=== PATIENT | female | born 1935 ===

== ENCOUNTER 2017-12-02 02:06 | Inpatient (IN) | payer MEDICARE ==
[2017-12-02] MEDS ORDERED: Aluminum Hydroxide/Magnesium Hydroxide Susp (30 mL) PO STA (02:47)
--- NOTE | 2017-12-02 02:49 | C.PDOC ---
Chief Complaint (Nursing): Abdominal Pain Past Medical History Vital Signs: Last Vital Signs Temp 98.4 F 12/02/17 02:24 Pulse 64 12/02/17 02:24 Resp 20 12/02/17 02:24 BP 145/69 12/02/17 02:24 Pulse Ox 98 12/02/17 02:24 - Social History Hx Alcohol Use: No Hx Substance Use: No - Immunization History Hx Tetanus Toxoid Vaccination: No Hx Influenza Vaccination: No Hx Pneumococcal Vaccination: No ED Course And Treatment O2 Sat by Pulse Oximetry: 98 Disposition - Disposition
--- NOTE | 2017-12-02 02:52 | C.PDOC ---
History Of Present Illness Patient is an 82 y/o female who presents to the ED with a roommate complaining of intermittent upper abdominal pain for the last 2 weeks. Per roommate, the patient arrived from the [facility] last Saturday with symptoms; admits to being seen by a doctor yesterday and took Reglan with no relief. Admits to vomiting 3 times since arriving from [facility]; denies diarrhea. Patient notes pain worsens when lying flat and mostly occurs at night; pain questionably related to meals. Last meal was rice at 6pm. No other physical complaints at this time. Chief Complaint (Nursing): Abdominal Pain History Per: Patient, Other (roommate) History/Exam Limitations: no limitations Onset/Duration Of Symptoms: Days (2 weeks), Intermittent Episodes Current Symptoms Are (Timing): Still Present Context: Travel (arrived from [facility] Saturday), Food (questionable relation) Location Of Pain/Discomfort: Epigastric, Periumbilical Associated Symptoms: Vomiting (x3 episodes). denies: Diarrhea Exacerbating Factors: Supine Recent travel outside of the [place] States: No Past Medical History Reviewed: Historical Data, Nursing Documentation, Vital Signs Vital Signs: Last Vital Signs Temp 98.4 F 12/02/17 02:24 Pulse 64 12/02/17 02:24 Resp 20 12/02/17 02:24 BP 145/69 12/02/17 02:24 Pulse Ox 98 12/02/17 04:39 - Medical History PMH: No Chronic Diseases Surgical History: No Surg Hx Family History: States: No Known Family Hx - Social History Hx Alcohol Use: No Hx Substance Use: No - Immunization History Hx Tetanus Toxoid Vaccination: No Hx Influenza Vaccination: No Hx Pneumococcal Vaccination: No Review Of Systems Gastrointestinal: Positive for: Vomiting, Abdominal Pain. Negative for: Diarrhea Physical Exam - Physical Exam Appears: Well, Non-toxic, In Acute Distress Skin: Normal Color, Warm, Dry Head: Atraumatic, Normacephalic Oral Mucosa: Moist Chest: Symmetrical Cardiovascular: Rhythm Regular, No Murmur Respiratory: Normal Breath Sounds, No Rales, No Rhonchi, No Wheezing Gastrointestinal/Abdominal: Bowel Sounds (positive, active), Soft, Guarding ( voluntary guarding), Other (pain confined to epigastrium ) Neurological/Psych: Oriented x3, Normal Speech, Normal Cognition, Other (no focal deficits) ED Course And Treatment - Laboratory Results Result Diagrams: 12/02/17 02:55 12/02/17 02:55 O2 Sat by Pulse Oximetry: 98 Medical Decision Making Medical Decision Making: clinical impression: GERD vs peptic ulcer vs gastritis Plan: * EKG * blood work * UA * Protonix, zofran, maalox, morphine On re-eval, patient is resting comfortably and feels well enough to go home. Patient prescribed antacids. Disposition - Disposition Referrals: [facility] at [facility] [Outside] Disposition: HOME/ ROUTINE Disposition Time: 05:10 Condition: GOOD Prescriptions: Pantoprazole Sodium [Protonix] 40 mg PO DAILY #14 tab Instructions: Epigastric Pain (ED) Forms: [employer] (Kinyarwanda) Print Language: ARMENIAN - Clinical Impression Clinical Impression: Epigastric abdominal pain - Scribe Statement The provider has reviewed the documentation as recorded by the Scribe Khloe Rivera All medical record entries made by the Scribe were at my direction and personally dictated by me. I have reviewed the chart and agree that the record accurately reflects my personal performance of the history, physical exam, medical decision making, and the department course for this patient. I have also personally directed, reviewed, and agree with the discharge instructions and disposition.
[2017-12-02] MEDS ORDERED: Aluminum Hydroxide/Magnesium Hydroxide Susp (30 mL) ONE (02:57)
[2017-12-02] MEDS ORDERED: Morphine 4 MG/ML VIAL ONE (02:57)
[2017-12-02 02:58] LABS: BASO % 0.3 % (0.0-2.0); EOS % 0.2 % (0.0-4.0); HEMOGLOBIN 12.7 g/dL (11.0-16.0); LYMPH # 2.6 K/uL (1.0-4.3); LYMPH % 23.3 % (20.0-40.0); MEAN CELL VOLUME 84.3 fL (81.0-99.0); MEAN CORPUSCULAR HEMOGLOBIN 28.5 pg (27.0-31.0); MEAN CORPUSCULAR HGB CONC 33.8 g/dL (33.0-37.0); MEAN PLATELET VOLUME 8.8 fL (7.2-11.7); MONO # 0.5 K/uL (0.0-0.8); MONO % 4.8 % (0.0-10.0); NEUT # 7.8 K/uL (1.8-7.0); NEUT % 71.4 % (50.0-75.0); RBC 4.44 Mil/uL (3.80-5.20); RED CELL DISTRIBUTION WIDTH 13.6 % (11.5-14.5); WHITE BLOOD COUNT 10.9 K/uL (4.8-10.8)
[2017-12-02 03:09] LABS: ALBUMIN 3.7 g/dL (3.5-5.0); ALT/SGPT 18 U/L (9-52); AST/SGOT 18 U/L (14-36); BLOOD UREA NITROGEN 19 mg/dL (7-17); CALCIUM 7.9 mg/dl (8.6-10.4); GFR AFRICAN-AMERICAN > 60; GFR NON-AFRICAN AMERICAN > 60; LIPASE 301 U/L (23-300)
[2017-12-02] MEDS ORDERED: Potassium Chloride 20 mEq ER Tab PO STA (03:14)
[2017-12-02] MEDS ORDERED: Potassium Chloride 20 mEq ER Tab PO ONE (03:27)
[2017-12-02] MEDS ORDERED: HYDROmorphone 1 mg/ml ISec IVP STA ×2 (03:49→04:11)
[2017-12-02] MEDS ORDERED: Iodixanol 320 MG/ML 100 ML BOTTLE IV ONE (05:47)
--- NOTE | 2017-12-02 06:32 | CT ---
EXAM: CT Abdomen and Pelvis With Intravenous Contrast CLINICAL HISTORY: 82 years old, female; Pain; Abdominal pain; Epigastric TECHNIQUE: Axial computed tomography images of the abdomen and pelvis with intravenous contrast. All CT scans at this facility use one or more dose reduction techniques, viz.: automated exposure control; ma/kV adjustment per patient size (including targeted exams where dose is matched to indication; i.e. head); or iterative reconstruction technique. 512 images are submitted. Coronal and sagittal reformatted images were created and reviewed. CONTRAST: 100 mL of [id number] administered intravenously. COMPARISON: No relevant prior studies available. FINDINGS: Lower thorax: Cardiomegaly. ABDOMEN: Liver: Fatty liver. Gallbladder and bile ducts: Partially distended gallbladder with gallbladder wall prominence and pericholecystic fluid. Pancreas: Unremarkable. No mass. No ductal dilation. Spleen: Unremarkable. No splenomegaly. Adrenals: Unremarkable. No mass. Kidneys and ureters: There are renal hypodensities too small to characterize. No hydronephrosis. Stomach and bowel: There is diffuse thickening of mid to distal stomach with gastric ulceration seen on image 59 series 3 and perforated gastric ulceration seen on image 52 series 3 representing perforated gastric ulcer disease. Large amount of stool in the colon. Nonspecific colonic wall thickening. Correlation with patient's clinical history of constipation versus stool related colitis is recommended. Diverticulosis. Appendix: Appendix is top normal in thickness. PELVIS: Bladder: Partially distended bladder with bladder wall thickening. Correlation with urinalysis is recommended only if clinical cystitis is suspected. Reproductive: Hysterectomy. ABDOMEN and PELVIS: Intraperitoneal space: Extensive free intraperitoneal air in the upper abdomen. Right upper quadrant and intra-abdominal pelvic fluid likely related to gastric perforation. Bones/joints: No acute fracture. No dislocation. Soft tissues: Unremarkable. Vasculature: Unremarkable. No abdominal aortic aneurysm. Lymph nodes: Unremarkable. No enlarged lymph nodes. IMPRESSION: 1. Extensive free intraperitoneal air in the upper abdomen. Right upper quadrant and intra-abdominal pelvic fluid likely related to gastric perforation. 2. There is diffuse thickening of mid to distal stomach with gastric ulceration seen on image 59 series 3 and perforated gastric ulceration seen on image 52 series 3 representing perforated gastric ulcer disease.
[2017-12-02] MEDS ORDERED: Sodium Chloride 0.9% 1,000 ML IV ONE ×3 (07:19→15:46)
--- NOTE | 2017-12-02 07:21 | CP.PCM.CON ---
<Soto Puentes - Last Filed: 12/02/17 08:04> History of Present Illness - History of Present Illness History of Present Illness: General Surgery Consult Note for Dr. Haque Reason for consult: abdominal pain, CT findings of perforated gastric ulcer and free air 82 F with PMH of HTN presents to [facility] complaint of abdominal pain. Patient states that her pain has been present for about 2 weeks. She was in the [facility] when the began started. Patient states that she has similar pain in the past but was much more mild. She states that pain was a gradual onset and has gotten progressively worse. She denies history of GERD or gastritis. She states that she was taking Aspirin daily but stopped 2 weeks ago when the pain began. She reports several bout of nauea/vomiting over last two weeks. She denies hematemesis. She rates the pain as moderate to severe. She describes he pain as constant, dull, and aching. Eating and drinking exacerbates her pain while nothing alleviates it. Denies fever/chills, chest pain, SOB, diarrhea, constipation, incontinence, urinary symptoms. PMH: HTN Meds: As per EMR Allergy: NKDA PSH: hysterectomy FH: unknown Social: denies tobacco/EtOH/illicit drug use Review of Systems - Review of Systems All systems: reviewed and no additional remarkable complaints except (as per HPI ) Past Patient History - Past Social History Smoking Status: Never Smoked - GASTROINTESTINAL Other/Comment: ABDOMINAL PAIN - PSYCHIATRIC Hx Substance Use: No - SURGICAL HISTORY Other/Comment: MYomectomy - ANESTHESIA Hx Anesthesia: Yes Hx Anesthesia Reactions: No Meds Home Medications: Home Medication List Medication Instructions Recorded Confirmed Type Pantoprazole Sodium [Protonix] 40 mg PO DAILY #14 tab 12/02/17 Rx Allergies/Adverse Reactions: Allergies Allergy/AdvReac Type Severity Reaction Status Date / Time No Known Allergies Allergy Unverified 12/02/17 02:28 - Medications Medications: Current Medications Sodium Chloride (Sodium Chloride 0.9%) 1,000 mls @ 125 mls/hr IV .Q8H ADELSO Sodium Chloride (Sodium Chloride 0.9%) 1,000 mls @ 1,000 mls/hr IV .Q1H ONE Stop: 12/02/17 08:18 Physical Exam - Constitutional Appears: No Acute Distress, Younger Than Stated Age - Head Exam Head Exam: ATRAUMATIC, NORMOCEPHALIC - Eye Exam Eye Exam: EOMI, Normal appearance Pupil Exam: PERRL - ENT Exam ENT Exam: Mucous Membranes Moist - Neck Exam Neck exam: Positive for: Full Rom - Respiratory Exam Respiratory Exam: NORMAL BREATHING PATTERN - Cardiovascular Exam Cardiovascular Exam: REGULAR RHYTHM - GI/Abdominal Exam GI & Abdominal Exam: Distended (mild), Firm, Guarding (voluntary), Normal Bowel Sounds, Soft, Tenderness (Epigastric/RLQ). absent: Rebound, Rigid Additional comments: midline scar from previous hysterectomy - Extremities Exam Extremities exam: Positive for: normal capillary refill, pedal pulses present. Negative for: calf tenderness - Back Exam Back exam: absent: CVA tenderness (L), CVA tenderness (R) - Neurological Exam Neurological exam: Alert, CN II-XII Intact, Normal Gait, Oriented x3 - Psychiatric Exam Psychiatric exam: Normal Affect, Normal Mood - Skin Skin Exam: Dry, Intact, Normal Color, Warm Results - Vital Signs Recent Vital Signs: Last Vital Signs Temp 98.4 F 12/02/17 02:24 Pulse 66 12/02/17 06:15 Resp 22 12/02/17 06:15 BP 141/66 12/02/17 06:15 Pulse Ox 98 12/02/17 06:15 - Labs Result Diagrams: 12/02/17 02:55 12/02/17 02:55 Labs: Laboratory Results - last 24 hr 12/02/17 12/02/17 02:55 02:55 WBC 10.9 H RBC 4.44 Hgb 12.7 Hct 37.4 MCV 84.3 MCH 28.5 MCHC 33.8 RDW 13.6 Plt Count 367 MPV 8.8 Neut % (Auto) 71.4 Lymph % (Auto) 23.3 [place] % (Auto) 4.8 Eos % (Auto) 0.2 Baso % (Auto) 0.3 Neut # 7.8 H Lymph # 2.6 [place] # 0.5 Eos # 0.0 Baso # 0.0 Sodium 133 Potassium 2.9 L Chloride 98 Carbon Dioxide 25 Anion Gap 13 BUN 19 H Creatinine 0.8 Est GFR ( Amer) > 60 Est GFR (Non-Af Amer) > 60 Random Glucose 180 H Calcium 7.9 L Total Bilirubin 1.1 AST 18 ALT 18 Alkaline Phosphatase 66 Troponin I < 0.0120 Total Protein 7.2 Albumin 3.7 Globulin 3.5 Albumin/Globulin Ratio 1.0 Lipase 301 H Assessment & Plan - Assessment and Plan (Free Text) Plan: 82 F presents with abdominal pain, CT abdomen/pelvis shows perforated gastric ulcer and free air -NPO -IV fluids -IV antibiotics -Analgesics/Anti-emetics PRN -Scheduled today for exploratory laparotomy in [place] -Protonix Q12H -DVT ppx -Discussed with Dr. Garland Puentes PGY1 <Roman Haque - Last Filed: 12/07/17 21:53> Meds - Medications Medications: Current Medications Acetaminophen (Tylenol 325mg Tab) 650 mg PO Q4 PRN PRN Reason: fever/pain Docusate Sodium (Colace) 100 mg PO DAILY [facility] Last Admin: 12/07/17 14:15 Dose: 100 mg Enoxaparin Sodium (Lovenox) 30 mg SC DAILY [facility] Last Admin: 12/07/17 09:01 Dose: 30 mg BUPIVACAINE 0.125%/0.9% NACL (Bupivacaine-Ns 0.125% On-Q Java [employer]) 600 mls @ 4 mls/ hr IJ ONCE ONE Stop: 12/08/17 20:35 Last Admin: 12/02/17 17:25 Dose: 4 mls Fluconazole (Diflucan Iv 100 Mg/50 Ml Ns) 50 mls @ 100 mls/hr IVPB Q24H [facility] Last Admin: 12/07/17 18:45 Dose: 100 mls/hr Piperacillin Sod/Tazobactam Sod (Zosyn 2.25 Gm Iv Premix) 2.25 gm in 50 mls @ 100 mls/hr IVPB Q8H [facility] Last Admin: 12/07/17 20:43 Dose: 100 mls/hr Potassium Chloride 10 meq/ (Dextrose/Sodium Chloride) 1,005 mls @ 75 mls/hr IV .[id number] [facility] Last Admin: 12/07/17 06:39 Dose: 75 mls/hr Metronidazole 250 mg/ (Miscellaneous) 50 mls @ 100 mls/hr IVPB Q8 [facility] Losartan Potassium (Cozaar) 100 mg PO DAILY [facility] Last Admin: 12/07/17 09:01 Dose: 100 mg Metoprolol Succinate (Toprol Xl) 12.5 mg PO DAILY [facility] Last Admin: 12/07/17 14:15 Dose: 12.5 mg Ondansetron HCl (Zofran Inj) 4 mg IVP Q4 PRN PRN Reason: Nausea/Vomiting Last Admin: 12/07/17 04:14 Dose: 4 mg Oxycodone/Acetaminophen (Percocet 5/325 Mg Tab) 2 tab PO Q4H PRN PRN Reason: Pain, severe (8-10) Stop: 12/10/17 13:41 Pantoprazole Sodium (Protonix Ec Tab) 40 mg PO DAILY [facility] Potassium Chloride (Potassium Chloride Oral Soln) 20 meq PO DAILY [facility] Last Admin: 12/07/17 10:08 Dose: 20 meq Results - Vital Signs Recent Vital Signs: Last Vital Signs Temp 98.5 F 12/07/17 15:15 Pulse 68 12/07/17 15:15 Resp 20 12/07/17 15:15 BP 169/77 H 12/07/17 15:15 Pulse Ox 96 12/07/17 15:15 - Labs Result Diagrams: 12/07/17 07:23 12/07/17 07:23 Labs: Laboratory Results - last 24 hr 12/07/17 12/07/17 07:23 07:23 WBC 11.2 H RBC 3.36 L Hgb 9.7 L Hct 28.7 L MCV 85.4 D MCH 28.9 MCHC 33.8 RDW 14.8 H Plt Count 290 MPV 9.0 Neut % (Auto) 73.5 Lymph % (Auto) 14.2 L [place] % (Auto) 9.7 Eos % (Auto) 2.5 Baso % (Auto) 0.1 Neut # 8.2 H Lymph # 1.6 [place] # 1.1 H Eos # 0.3 Baso # 0.0 Sodium 139 Potassium 2.8 L Chloride 109 H Carbon Dioxide 24 Anion Gap 8 L BUN 9 Creatinine 0.8 Est GFR ( Amer) > 60 Est GFR (Non-Af Amer) > 60 Random Glucose 97 Calcium 7.0 L Total Bilirubin 0.5 AST 28 ALT 35 Alkaline Phosphatase 45 Total Protein 5.1 L Albumin 2.3 L Globulin 2.8 Albumin/Globulin Ratio 0.8 L Attending/Attestation - Attestation I have personally seen and examined this patient.: Yes I have fully participated in the care of the patient.: Yes I have reviewed all pertinent clinical information: Yes Notes (Text): Pt was seen and examined at bedside Agree with above note and assessment Pt with upper abdominal pain and tenderness CT scan suggestive of Free air Labs reviewed Vitals WNL OR for Exp Lap and Joselito patch repair Consent NPO, IVF IV antibiotics Plan d.w pt in detail Risk and benefit explained in detail.
[2017-12-02] MEDS ORDERED: Sodium Chloride 0.9% 1,000 ML ONE (07:27)
[2017-12-02] MEDS ORDERED: Sodium Chloride 0.9% 1,000 ML IV SCH (07:30)
[2017-12-02] MEDS ORDERED: cefOXitin IV 1 gm in Dextrose 1 GM/50 ML BAG IVPB SCH (07:45)
[2017-12-02] MEDS ORDERED: HYDROmorphone 1 mg/ml ISec IVP PRN (07:47)
[2017-12-02 07:50] LABS: INR 1.2; PROTHROMBIN TIME 13.1 SECONDS (9.7-12.2)
[2017-12-02] MEDS ORDERED: metroNIDAZOLE IV 500 mg/100 ml 500 MG/100 ML BAG IVPB SCH (08:00)
--- NOTE | 2017-12-02 08:38 | RAD ---
HISTORY: pre-op COMPARISON: No prior. FINDINGS: LUNGS: Opacity at right base may reflect small pleural effusion. There may be right basilar atelectasis with downward bowing of the minor fissure. Follow-up advised. No definite infiltrate. Slight blunting of left costophrenic angle also present, again possible small pleural effusion. PLEURA: As above CARDIOVASCULAR: Normal. OSSEOUS STRUCTURES: No significant abnormalities. VISUALIZED UPPER ABDOMEN: Normal. OTHER FINDINGS: None. IMPRESSION: Possible small bilateral pleural effusion. No definite infiltrate. Possible right basilar atelectasis.
[2017-12-02] MEDS ORDERED: Lidocaine 1%/Epinephrine 1:100000 30 ml vial IJ STA (08:41)
--- NOTE | 2017-12-02 08:54 | CP.PCM.HP ---
History of Present Illness - History of Present Illness History of Present Illness: CC: Abd pain 82 y/o female with IFG. Pt w/ Epig pain x 1-2 mths ago and was on Pepcid. Pt pain start to increase 3 wks ago & has nausea/ vomiting. She was seen in 2 days ago & was advise work up. Yesterday night, she had kady increase of epigastric pain and felt very weak. She went to ER and CT is (+) for perforated gastric ulcer. Present on Admission - Present on Admission Any Indicators Present on Admission: Yes History of DVT/PE: No History of Uncontrolled Diabetes: No Urinary Catheter: No Decubitus Ulcer Present: No Review of Systems - Review of Systems Systems not reviewed;Unavailable: Acuity of Condition - Constitutional Constitutional: Fatigue, Night Sweats, Weakness. absent: Excessive Sweating, Fever, Weight Loss - EENT Eyes: absent: Change in Vision, Loss of Peripheral Vision, Sees Flashes, Loss of Vision Nose/Mouth/Throat: absent: Nasal Congestion, Bleeding Gums, Dysphagia, Mouth Pain, Neck Pain - Cardiovascular Cardiovascular: absent: Chest Pain, Diaphoresis, Edema, Leg Edema, Palpitations - Respiratory Respiratory: absent: Cough, Snoring, Pain on Inspiration, Chest Congestion, Excessive Mucous Production - Gastrointestinal Gastrointestinal: Nausea, Vomiting. absent: Abdominal Pain, Bloating, Cramping , Excessive Flatus, Loose Stools - Genitourinary Genitourinary: absent: Difficulty Urinating, Dysuria, Pyuria, Urinary Hesitance - Musculoskeletal Musculoskeletal: Abnormal Gait, Tingling. absent: Back Pain, Joint Swelling, Muscle Weakness, Myalgias, Stiffness - Integumentary Integumentary: absent: Alopecia, Changing Lesions, Skin Pain, Swelling Past Patient History - Infectious Disease Hx of Infectious Diseases: None - Past Social History Smoking Status: Never Smoked - GASTROINTESTINAL Other/Comment: ABDOMINAL PAIN - PSYCHIATRIC Hx Substance Use: No - SURGICAL HISTORY Other/Comment: MYomectomy - ANESTHESIA Hx Anesthesia: Yes Hx Anesthesia Reactions: No Meds Home Medications: Home Medication List Medication Instructions Recorded Confirmed Type Pantoprazole Sodium [Protonix] 40 mg PO DAILY #14 tab 12/02/17 Rx Allergies/Adverse Reactions: Allergies Allergy/AdvReac Type Severity Reaction Status Date / Time No Known Allergies Allergy Unverified 12/02/17 02:28 Physical Exam - Constitutional Appears: Well - Eye Exam Eye Exam: Normal appearance - ENT Exam ENT Exam: Mucous Membranes Dry. absent: Mucous Membranes Moist - Neck Exam Neck exam: Positive for: Full Rom. Negative for: Lymphadenopathy, Normal Inspection - Respiratory Exam Respiratory Exam: Rales, Rhonchi, Wheezes. absent: Decreased Breath Sounds - Cardiovascular Exam Cardiovascular Exam: REGULAR RHYTHM, +S1, +S2. absent: Gallop, JVD - GI/Abdominal Exam GI & Abdominal Exam: Soft. absent: Rigid, Tenderness - Extremities Exam Extremities exam: Positive for: calf tenderness, full ROM, normal capillary refill. Negative for: joint swelling, pedal edema Results - Vital Signs Recent Vital Signs: Last Vital Signs Temp 97.7 F 12/02/17 08:43 Pulse 68 12/02/17 08:43 Resp 20 12/02/17 08:43 BP 133/68 12/02/17 08:43 Pulse Ox 95 12/02/17 08:43 - Labs Result Diagrams: 12/02/17 02:55 12/02/17 02:55 Labs: Laboratory Results - last 24 hr 12/02/17 12/02/17 12/02/17 02:55 02:55 07:36 WBC 10.9 H RBC 4.44 Hgb 12.7 Hct 37.4 MCV 84.3 MCH 28.5 MCHC 33.8 RDW 13.6 Plt Count 367 MPV 8.8 Neut % (Auto) 71.4 Lymph % (Auto) 23.3 [place] % (Auto) 4.8 Eos % (Auto) 0.2 Baso % (Auto) 0.3 Neut # 7.8 H Lymph # 2.6 [place] # 0.5 Eos # 0.0 Baso # 0.0 PT 13.1 H INR 1.2 APTT 31 Sodium 133 Potassium 2.9 L Chloride 98 Carbon Dioxide 25 Anion Gap 13 BUN 19 H Creatinine 0.8 Est GFR ( Amer) > 60 Est GFR (Non-Af Amer) > 60 Random Glucose 180 H Calcium 7.9 L Total Bilirubin 1.1 AST 18 ALT 18 Alkaline Phosphatase 66 Troponin I < 0.0120 Total Protein 7.2 Albumin 3.7 Globulin 3.5 Albumin/Globulin Ratio 1.0 Lipase 301 H Blood Type Antibody Screen 12/02/17 07:36 WBC RBC Hgb Hct MCV MCH MCHC RDW Plt Count MPV Neut % (Auto) Lymph % (Auto) [place] % (Auto) Eos % (Auto) Baso % (Auto) Neut # Lymph # [place] # Eos # Baso # PT INR APTT Sodium Potassium Chloride Carbon Dioxide Anion Gap BUN Creatinine Est GFR ( Amer) Est GFR (Non-Af Amer) Random Glucose Calcium Total Bilirubin AST ALT Alkaline Phosphatase Troponin I Total Protein Albumin Globulin Albumin/Globulin Ratio Lipase Blood Type A POSITIVE Antibody Screen Negative - EKG Data EKG Interpreted by: Myself - EKG Data When Compared to Previous EKG: No Significant Change Assessment & Plan - Assessment and Plan (Free Text) Assessment: Perforated Gastric ulcer; Hypokalemia For surgery/ (+) k supplement IV Recheck labs in AM
[2017-12-02] MEDS: metroNIDAZOLE IV 500 mg/100 ml 500 MG/100 ML BAG IVPB SCH ×2 (09:25→16:59)
[2017-12-02] MEDS: cefOXitin IV 1 gm in Dextrose 1 GM/50 ML BAG IVPB SCH ×2 (10:51→18:23)
[2017-12-02] MEDS: Potassium Chloride 20 MEQ in Dextrose 5%/0.9% NS 1,000 ML IV SCH ×2 (12:16→20:08)
[2017-12-02] MEDS ORDERED: Lactated Ringer's 1,000 ML IV ONE (14:35)
[2017-12-02] MEDS ORDERED: Lidocaine 4% (Laryng-O-Jet) Kit MM ONE (14:35)
[2017-12-02] MEDS ORDERED: Succinylcholine Chloride 20 mg/ml Syr (5 ml) IV ONE (14:35)
[2017-12-02] MEDS ORDERED: BUPIVACAINE 0.125%/0.9% NACL 600 ML IJ ONE (14:36)
[2017-12-02] MEDS ORDERED: Etomidate 20 mg/10ml Inj IV ONE (14:38)
[2017-12-02] MEDS ORDERED: Rocuronium 10 mg/ml (5 ml) ONE (15:02)
[2017-12-02] MEDS ORDERED: Bupivacaine HCl 0.25% PF (10 ml) Inj ONE ×2 (16:07→16:08)
[2017-12-02] MEDS ORDERED: Propofol 10 mg/ml Inj (20 ML) ONE (16:26)
[2017-12-02] MEDS ORDERED: HYDROmorphone 0.5 mg/0.5 ml ISec IVP PRN (17:22)
--- NOTE | 2017-12-02 17:29 | PCM.SURG1 ---
Surgeon's Initial Post Op Note - Surgeon's Notes Surgeon: Dr. Haque Broom Maker: Demetrio Garcia PGY2, PGY4 Type of Anesthesia: General Endo Pre-Operative Diagnosis: perforated viscus Operative Findings: Duodenal perforation, abscess Post-Operative Diagnosis: Duodenal perforation Operation Performed: Exploratory laparotomy, duodenal repair, grahm patch, wash out Specimen/Specimens Removed: abscess Estimated Blood Loss: EBL {In ML}: 100 Blood Products Given: N/A Drains Used: Wes Post-Op Condition: Fair Date of Surgery/Procedure: 12/02/17 Time of Surgery/Procedure: 17:30
[2017-12-02] MEDS ORDERED: Piperacillin/Tazobact 3.375 GM in Sodium Chloride 100 ML IVPB SCH (17:30)
[2017-12-02] MEDS ORDERED: Fluconazole IV 200mg/100 ml NS 100 MG in Premixed IV 1 EA IVPB SCH (17:30)
--- NOTE | 2017-12-02 18:20 | RAD ---
HISTORY: PACU post op COMPARISON: Chest x-ray performed 12/02/17 TECHNIQUE: Chest, one view. FINDINGS: Nasogastric tube extends expected location of the stomach. LUNGS: Tiny bilateral pleural effusions. Bibasilar atelectasis/infiltrates. No definite pneumothorax. Please note that chest x-ray has limited sensitivity for the detection of pulmonary masses. CARDIOVASCULAR: Cardiomegaly. OSSEOUS STRUCTURES: Degenerative changes. VISUALIZED UPPER ABDOMEN: Partially imaged surgical mando. OTHER FINDINGS: None. IMPRESSION: Nasogastric tube. Tiny bilateral pleural effusions. Bibasilar atelectasis/infiltrates. Cardiomegaly.
[2017-12-02] MEDS: Fluconazole IV 100mg/50 ml NS 50 ML IVPB SCH (20:07)
[2017-12-02] MEDS: Piperacill/Tazo 2.25gm in Dex 2.25 GM/50 ML BAG IVPB SCH (20:49)
--- NOTE | 2017-12-02 21:55 | OP ---
PROCEDURE DATE: 12/02/2017 PREOPERATIVE DIAGNOSES: 1. Perforated viscus. 2. Leukocytosis. 3. Abdominal pain. POSTOPERATIVE DIAGNOSES: 1. Perforated duodenal peptic ulcer. 2. Multiple intraabdominal abscesses. 3. Extensive postoperative adhesions status post hysterectomy. PROCEDURE DONE: 1. Exploratory laparotomy. 2. Joselito patch closure of duodenal peptic perforation. 3. Drainage of intraabdominal multiple abscesses. 4. Extensive lysis of adhesions. 5. Bilateral On-Q pain catheter pump placement. SURGEON: The procedure was done by Roman cerna MD. MACHINE ASSEMBLER: Roddy Roman, PGY-4 resident and Demetrio Garcia, the PGY-2 resident and DELILAH Ayon. TYPE OF ANESTHESIA: General endotracheal tube anesthesia. ESTIMATED BLOOD LOSS: Around 100 mL. DRAINS: A 19-Tongan Wes drain was placed. COMPLICATIONS: None. INTRAOPERATIVE FINDINGS: The patient had extensive postoperative adhesions due to the hysterectomy and the patient also had multiple perihepatic, infrahepatic, perisplenic, pelvic and bilateral paracolic gutter abscesses and the patient also had duodenal perforation anteriorly of approximately 1 x 1 cm size. DESCRIPTION OF PROCEDURE: On intraoperative steps, this is an 82-year-old female who was diagnosed with peptic perforation of duodenum and the patient had multiple intraabdominal abscesses and the patient was consented for exploratory laparotomy and possible bowel resection and possible stoma. Brought to the OR, placed supine on the operating table. After induction of the anesthesia, abdomen was prepped and draped in the usual sterile fashion. The Patrick catheter and the NG were placed and upper midline incision was made after incising skin and subcutaneous tissue. The fascia was incised in the line of incision. The peritoneal cavity was entered and the pus was sent for the culture as well as the cytology and the multiple perihepatic as well as perisplenic, pelvic and the paracolic gutter abscesses were drained and the patient also had extensive postoperative adhesions due to the hysterectomy and that was also lysed and now the peptic perforation was identified and it was repaired with a 0 silk interrupted multiple sutures and after closure of the perforation, the omental patch was placed and the omental patch was secured with 0 Vicryl interrupted sutures and after proper Joselito patch, the abdominal washout was done and approximately 5 L of fluid was used to completely clean the peritoneal cavity and 19-Tongan Wes drain was placed and bilateral On-Q pain catheter pump was placed and after that the peritoneal cavity was closed in multiple layers. The fascia with #1 loop PDS as well as 0 Prolene interrupted sutures and the skin with mando and dry sterile dressing was applied. The On-Q pain catheter pump was connected to the catheter and the patient was extubated in the OR, sent to the Postanesthesia Care Unit in stable condition. There was no apparent complication. Roman Haque MD
[2017-12-03 01:04] VITALS: RESP 20
[2017-12-03] MEDS: metroNIDAZOLE IV 500 mg/100 ml 500 MG/100 ML BAG IVPB SCH ×3 (01:13→16:55)
[2017-12-03] MEDS: Lactated Ringer's 1,000 ML IV SCH (03:30)
[2017-12-03] MEDS: Piperacill/Tazo 2.25gm in Dex 2.25 GM/50 ML BAG IVPB SCH ×3 (04:21→20:29)
[2017-12-03] MEDS: Potassium Chloride 20 MEQ in Dextrose 5%/0.9% NS 1,000 ML IV SCH (06:18)
[2017-12-03 08:23] LABS: ALBUMIN 2.3 g/dL (3.5-5.0); CALCIUM 6.4 mg/dl (8.6-10.4)
[2017-12-03 08:27] LABS: HEMOGLOBIN 12.3 g/dL (11.0-16.0); MEAN CORPUSCULAR HEMOGLOBIN 29.4 pg (27.0-31.0); MEAN CORPUSCULAR HGB CONC 33.5 g/dL (33.0-37.0); RBC 4.18 Mil/uL (3.80-5.20); RED CELL DISTRIBUTION WIDTH 14.4 % (11.5-14.5)
[2017-12-03 08:31] LABS: MEAN CELL VOLUME 87.8 fL (81.0-99.0)
--- NOTE | 2017-12-03 08:53 | CP.PCM.PN ---
<Demetrio Garcia - Last Filed: 12/03/17 08:49> Subjective - Date & Time of Evaluation Date of Evaluation: 12/03/17 Time of Evaluation: 08:49 - Subjective Subjective: Surgery Pt s&e. Pt underwent ex lap yesterday and tolerated it well. Denies F/C/N/V/D/CP /SOB. Pain controlled. Precious flatus, BM. Objective - Vital Signs/Intake and Output Vital Signs (last 24 hours): Temp Pulse Resp BP Pulse Ox 98.6 F 76 20 99/54 L 98 12/03/17 07:57 12/03/17 07:57 12/03/17 07:57 12/03/17 07:57 12/03/17 07:57 Intake and Output: 12/03/17 12/03/17 06:59 18:59 Intake Total 1200 Output Total 630 Balance 570 - Medications Medications: Current Medications Acetaminophen (Tylenol 650 Mg Supp) 650 mg [place] Q4 PRN PRN Reason: Fever >100.4 F Enoxaparin Sodium (Lovenox) 30 mg SC DAILY [facility] Hydromorphone HCl (Dilaudid) 1 mg IVP Q4H PRN PRN Reason: Pain, severe (8-10) Hydromorphone HCl (Dilaudid) 0.5 mg IVP Q4H PRN PRN Reason: Pain, moderate (4-7) Last Admin: 12/02/17 20:37 Dose: 0.5 mg Potassium Chloride 20 meq/ (Dextrose/Sodium Chloride) 1,010 mls @ 100 mls/hr IV .Q10H6M [facility] Last Admin: 12/03/17 06:18 Dose: 100 mls/hr Metronidazole (Flagyl) 500 mg in 100 mls @ 100 mls/hr IVPB Q8H [facility] Last Admin: 12/03/17 01:13 Dose: 100 mls/hr BUPIVACAINE 0.125%/0.9% NACL (Bupivacaine-Ns 0.125% On-Q Developer Evangelist) 600 mls @ 4 mls/ hr IJ ONCE ONE Stop: 12/08/17 20:35 Last Admin: 12/02/17 17:25 Dose: 4 mls Lactated Ringer's (Lactated Ringer's) 1,000 mls @ 100 mls/hr IV .Q10H [facility] Last Admin: 12/03/17 03:30 Dose: Not Given Acetaminophen (Ofirmev) 100 mls @ 400 mls/hr IV Q6 PRN PRN Reason: Pain, moderate (4-7) Stop: 12/03/17 17:25 Last Admin: 12/02/17 17:53 Dose: 100 mls Fluconazole (Diflucan Iv 100 Mg/50 Ml Ns) 50 mls @ 100 mls/hr IVPB Q24H [facility] Last Admin: 12/02/17 20:07 Dose: 100 mls/hr Piperacillin Sod/Tazobactam Sod (Zosyn 2.25 Gm Iv Premix) 2.25 gm in 50 mls @ 100 mls/hr IVPB Q8H [facility] Last Admin: 12/03/17 04:21 Dose: 100 mls/hr Ondansetron HCl (Zofran Inj) 4 mg IVP Q4 PRN PRN Reason: Nausea/Vomiting Pantoprazole Sodium (Protonix Inj) 40 mg IVP Q12H [facility] Last Admin: 12/02/17 20:10 Dose: 40 mg Pneumococcal Polyvalent Vaccine (Pneumovax 23 Vaccine) 0.5 ml IM .ONCE ONE Stop: 12/05/17 10:01 - Labs Labs: 12/03/17 07:55 12/03/17 07:55 PT 13.1 SECONDS (9.7-12.2) H 12/02/17 07:36 INR 1.2 12/02/17 07:36 APTT 31 SECONDS (21-34) 12/02/17 07:36 - Constitutional Appears: No Acute Distress - Head Exam Head Exam: ATRAUMATIC, NORMAL INSPECTION, NORMOCEPHALIC - Eye Exam Eye Exam: EOMI, Normal appearance, PERRL Pupil Exam: NORMAL ACCOMODATION, PERRL - ENT Exam ENT Exam: Mucous Membranes Moist, Normal Exam Additional comments: NGT in place - Neck Exam Neck Exam: Full ROM, Normal Inspection. absent: Lymphadenopathy - Respiratory Exam Respiratory Exam: Clear to Ausculation Bilateral, NORMAL BREATHING PATTERN - Cardiovascular Exam Cardiovascular Exam: REGULAR RHYTHM, +S1, +S2. absent: Murmur - GI/Abdominal Exam GI & Abdominal Exam: Soft, Tenderness, Normal Bowel Sounds. absent: Distended, Firm, Guarding, Rigid Additional comments: Drain in place - Exam Exam: NORMAL INSPECTION - Extremities Exam Extremities Exam: Full ROM, Normal Capillary Refill, Normal Inspection. absent : Joint Swelling, Pedal Edema - Back Exam Back Exam: NORMAL INSPECTION - Neurological Exam Neurological Exam: Alert, Awake, CN II-XII Intact, Oriented x3 - Psychiatric Exam Psychiatric exam: Normal Affect, Normal Mood - Skin Skin Exam: Dry, Intact, Normal Color, Warm Assessment and Plan - Assessment and Plan (Free Text) Assessment: POD 1 s/p Ex lap grahm patch for duodenal perforation -NGT until flatus -NPO, ice chips ok -IVF -Monitor labs -ABX -VS -IS, OOB, PT -Patrick DCed. VOid check -DVT/ GI ppx DW Dr. Haque <Roman Haque - Last Filed: 12/07/17 21:54> Objective - Vital Signs/Intake and Output Vital Signs (last 24 hours): Temp Pulse Resp BP Pulse Ox 98.5 F 68 20 169/77 H 96 12/07/17 15:15 12/07/17 15:15 12/07/17 15:15 12/07/17 15:15 12/07/17 15:15 Intake and Output: 12/07/17 12/08/17 18:59 06:59 Intake Total 1550 Output Total 50 Balance 1500 - Medications Medications: Current Medications Acetaminophen (Tylenol 325mg Tab) 650 mg PO Q4 PRN PRN Reason: fever/pain Docusate Sodium (Colace) 100 mg PO DAILY [facility] Last Admin: 12/07/17 14:15 Dose: 100 mg Enoxaparin Sodium (Lovenox) 30 mg SC DAILY [facility] Last Admin: 12/07/17 09:01 Dose: 30 mg BUPIVACAINE 0.125%/0.9% NACL (Bupivacaine-Ns 0.125% On-Q Developer Evangelist) 600 mls @ 4 mls/ hr IJ ONCE ONE Stop: 12/08/17 20:35 Last Admin: 12/02/17 17:25 Dose: 4 mls Fluconazole (Diflucan Iv 100 Mg/50 Ml Ns) 50 mls @ 100 mls/hr IVPB Q24H [facility] Last Admin: 12/07/17 18:45 Dose: 100 mls/hr Piperacillin Sod/Tazobactam Sod (Zosyn 2.25 Gm Iv Premix) 2.25 gm in 50 mls @ 100 mls/hr IVPB Q8H [facility] Last Admin: 12/07/17 20:43 Dose: 100 mls/hr Potassium Chloride 10 meq/ (Dextrose/Sodium Chloride) 1,005 mls @ 75 mls/hr IV .[id number] [facility] Last Admin: 12/07/17 06:39 Dose: 75 mls/hr Metronidazole 250 mg/ (Miscellaneous) 50 mls @ 100 mls/hr IVPB Q8 [facility] Losartan Potassium (Cozaar) 100 mg PO DAILY [facility] Last Admin: 12/07/17 09:01 Dose: 100 mg Metoprolol Succinate (Toprol Xl) 12.5 mg PO DAILY [facility] Last Admin: 12/07/17 14:15 Dose: 12.5 mg Ondansetron HCl (Zofran Inj) 4 mg IVP Q4 PRN PRN Reason: Nausea/Vomiting Last Admin: 12/07/17 04:14 Dose: 4 mg Oxycodone/Acetaminophen (Percocet 5/325 Mg Tab) 2 tab PO Q4H PRN PRN Reason: Pain, severe (8-10) Stop: 12/10/17 13:41 Pantoprazole Sodium (Protonix Ec Tab) 40 mg PO DAILY [facility] Potassium Chloride (Potassium Chloride Oral Soln) 20 meq PO DAILY [facility] Last Admin: 12/07/17 10:08 Dose: 20 meq - Labs Labs: 12/07/17 07:23 12/07/17 07:23 PT 13.1 SECONDS (9.7-12.2) H 12/02/17 07:36 INR 1.2 12/02/17 07:36 APTT 31 SECONDS (21-34) 12/02/17 07:36 Attending/Attestation - Attestation I have personally seen and examined this patient.: Yes I have fully participated in the care of the patient.: Yes I have reviewed all pertinent clinical information, including history, physical exam and plan: Yes Notes (Text): Pt was seen and examined at bedside Agree with above note and assessment Pt is imporving clincally NPO, IVF NG to LIS DVT prophylaxis OOB IV antibiotics Plan d.w pt in detail Risk and benefit explained in detail.
--- NOTE | 2017-12-03 08:54 | CP.PCM.PN ---
Subjective - Date & Time of Evaluation Date of Evaluation: 12/03/17 Time of Evaluation: 08:20 - Subjective Subjective: Pt unusual complain; no diarrhea, no fever s/p Surgery c/o perforated duodenal ulcer K 4.4 today Objective - Vital Signs/Intake and Output Vital Signs (last 24 hours): Temp Pulse Resp BP Pulse Ox 98.6 F 76 20 99/54 L 98 12/03/17 07:57 12/03/17 07:57 12/03/17 07:57 12/03/17 07:57 12/03/17 07:57 Intake and Output: 12/03/17 12/03/17 06:59 18:59 Intake Total 1200 Output Total 630 Balance 570 - Medications Medications: Current Medications Acetaminophen (Tylenol 650 Mg Supp) 650 mg [place] Q4 PRN PRN Reason: Fever >100.4 F Enoxaparin Sodium (Lovenox) 30 mg SC DAILY [facility] Hydromorphone HCl (Dilaudid) 1 mg IVP Q4H PRN PRN Reason: Pain, severe (8-10) Hydromorphone HCl (Dilaudid) 0.5 mg IVP Q4H PRN PRN Reason: Pain, moderate (4-7) Last Admin: 12/02/17 20:37 Dose: 0.5 mg Potassium Chloride 20 meq/ (Dextrose/Sodium Chloride) 1,010 mls @ 100 mls/hr IV .Q10H6M [facility] Last Admin: 12/03/17 06:18 Dose: 100 mls/hr Metronidazole (Flagyl) 500 mg in 100 mls @ 100 mls/hr IVPB Q8H [facility] Last Admin: 12/03/17 01:13 Dose: 100 mls/hr BUPIVACAINE 0.125%/0.9% NACL (Bupivacaine-Ns 0.125% On-Q Rn Homecare) 600 mls @ 4 mls/ hr IJ ONCE ONE Stop: 12/08/17 20:35 Last Admin: 12/02/17 17:25 Dose: 4 mls Lactated Ringer's (Lactated Ringer's) 1,000 mls @ 100 mls/hr IV .Q10H [facility] Last Admin: 12/03/17 03:30 Dose: Not Given Acetaminophen (Ofirmev) 100 mls @ 400 mls/hr IV Q6 PRN PRN Reason: Pain, moderate (4-7) Stop: 12/03/17 17:25 Last Admin: 12/02/17 17:53 Dose: 100 mls Fluconazole (Diflucan Iv 100 Mg/50 Ml Ns) 50 mls @ 100 mls/hr IVPB Q24H [facility] Last Admin: 12/02/17 20:07 Dose: 100 mls/hr Piperacillin Sod/Tazobactam Sod (Zosyn 2.25 Gm Iv Premix) 2.25 gm in 50 mls @ 100 mls/hr IVPB Q8H [facility] Last Admin: 12/03/17 04:21 Dose: 100 mls/hr Ondansetron HCl (Zofran Inj) 4 mg IVP Q4 PRN PRN Reason: Nausea/Vomiting Pantoprazole Sodium (Protonix Inj) 40 mg IVP Q12H [facility] Last Admin: 12/02/17 20:10 Dose: 40 mg Pneumococcal Polyvalent Vaccine (Pneumovax 23 Vaccine) 0.5 ml IM .ONCE ONE Stop: 12/05/17 10:01 - Labs Labs: 12/03/17 07:55 12/03/17 07:55 PT 13.1 SECONDS (9.7-12.2) H 12/02/17 07:36 INR 1.2 12/02/17 07:36 APTT 31 SECONDS (21-34) 12/02/17 07:36 - Constitutional Appears: No Acute Distress - Eye Exam Eye Exam: Normal appearance - ENT Exam ENT Exam: Mucous Membranes Moist - Neck Exam Neck Exam: Full ROM. absent: Lymphadenopathy, Normal Inspection - Respiratory Exam Respiratory Exam: Clear to Ausculation Bilateral. absent: Rales, Rhonchi, Wheezes - Cardiovascular Exam Cardiovascular Exam: +S1, +S2. absent: Gallop, REGULAR RHYTHM, JVD - GI/Abdominal Exam GI & Abdominal Exam: Guarding, Tenderness, Diminished Bowel Sounds - Extremities Exam Extremities Exam: Full ROM, Normal Capillary Refill. absent: Calf Tenderness, Pedal Edema Assessment and Plan - Assessment and Plan (Free Text) Assessment: Perforated Ulcer; Hypokalemia Dec k incorporation Cont supportive care
[2017-12-03] MEDS: Enoxaparin 30 mg Syringe SC SCH (09:54)
[2017-12-03] MEDS: Potassium Chloride 10 MEQ in Dextrose 5%/0.9% NS 1,000 ML IV SCH (10:00)
[2017-12-03] MEDS: Fluconazole IV 100mg/50 ml NS 50 ML IVPB SCH (18:27)
--- NOTE | 2017-12-04 00:14 | CARD ---
APPROVED REPORT EKG Measurement Heart [id number] [id number] <Conclusion> Normal sinus rhythm Normal ECG
[2017-12-04] MEDS: metroNIDAZOLE IV 500 mg/100 ml 500 MG/100 ML BAG IVPB SCH ×3 (00:39→16:30)
[2017-12-04] MEDS: Potassium Chloride 10 MEQ in Dextrose 5%/0.9% NS 1,000 ML IV SCH ×3 (03:00→21:56)
[2017-12-04] MEDS: Piperacill/Tazo 2.25gm in Dex 2.25 GM/50 ML BAG IVPB SCH ×3 (04:59→20:50)
[2017-12-04 07:26] LABS: MEAN CELL VOLUME 87.2 fL (81.0-99.0); MEAN CORPUSCULAR HEMOGLOBIN 29.4 pg (27.0-31.0); MEAN CORPUSCULAR HGB CONC 33.7 g/dL (33.0-37.0); MEAN PLATELET VOLUME 9.2 fL (7.2-11.7); RBC 3.76 Mil/uL (3.80-5.20); RED CELL DISTRIBUTION WIDTH 13.9 % (11.5-14.5); WHITE BLOOD COUNT 17.3 K/uL (4.8-10.8)
[2017-12-04 08:11] LABS: ALB/GLOB RATIO 0.9 (1.0-2.1); ALBUMIN 2.4 g/dL (3.5-5.0); ALT/SGPT 33 U/L (9-52); AST/SGOT 30 U/L (14-36); BLOOD UREA NITROGEN 18 mg/dL (7-17); CALCIUM 6.6 mg/dl (8.6-10.4); GFR AFRICAN-AMERICAN > 60; GFR NON-AFRICAN AMERICAN 53
--- NOTE | 2017-12-04 08:55 | CP.PCM.PN ---
Subjective - Date & Time of Evaluation Date of Evaluation: 12/04/17 Time of Evaluation: 08:45 - Subjective Subjective: Pt no complain exc NGT irritation and abd pain on surgical site. (+) pass flatus,no n/v, no diarrhea, no cough, no CP,no SOB, no edema, nor palpitation Objective - Vital Signs/Intake and Output Vital Signs (last 24 hours): Temp Pulse Resp BP Pulse Ox 98.7 F 86 20 181/74 H 96 12/04/17 07:55 12/04/17 07:55 12/04/17 07:55 12/04/17 07:55 12/04/17 07:55 Intake and Output: 12/04/17 12/04/17 06:59 18:59 Intake Total 1250 Output Total 310 Balance 940 - Medications Medications: Current Medications Acetaminophen (Tylenol 650 Mg Supp) 650 mg [place] Q4 PRN PRN Reason: Fever >100.4 F Enoxaparin Sodium (Lovenox) 30 mg SC DAILY [facility] Last Admin: 12/03/17 09:54 Dose: 30 mg Hydromorphone HCl (Dilaudid) 1 mg IVP Q4H PRN PRN Reason: Pain, severe (8-10) Hydromorphone HCl (Dilaudid) 0.5 mg IVP Q4H PRN PRN Reason: Pain, moderate (4-7) Last Admin: 12/02/17 20:37 Dose: 0.5 mg Metronidazole (Flagyl) 500 mg in 100 mls @ 100 mls/hr IVPB Q8H [facility] Last Admin: 12/04/17 08:12 Dose: 100 mls/hr BUPIVACAINE 0.125%/0.9% NACL (Bupivacaine-Ns 0.125% On-Q Supervisory Forester) 600 mls @ 4 mls/ hr IJ ONCE ONE Stop: 12/08/17 20:35 Last Admin: 12/02/17 17:25 Dose: 4 mls Lactated Ringer's (Lactated Ringer's) 1,000 mls @ 100 mls/hr IV .Q10H [facility] Last Admin: 12/03/17 03:30 Dose: Not Given Fluconazole (Diflucan Iv 100 Mg/50 Ml Ns) 50 mls @ 100 mls/hr IVPB Q24H [facility] Last Admin: 12/03/17 18:27 Dose: 100 mls/hr Piperacillin Sod/Tazobactam Sod (Zosyn 2.25 Gm Iv Premix) 2.25 gm in 50 mls @ 100 mls/hr IVPB Q8H [facility] Last Admin: 12/04/17 04:59 Dose: 100 mls/hr Potassium Chloride 10 meq/ (Dextrose/Sodium Chloride) 1,005 mls @ 75 mls/hr IV .[id number] [facility] Last Admin: 12/04/17 03:00 Dose: 75 mls/hr Nitroglycerin (Nitro-Dur 0.2 Mg/Hr Patch) 1 patch TD DAILY [facility] Ondansetron HCl (Zofran Inj) 4 mg IVP Q4 PRN PRN Reason: Nausea/Vomiting Pantoprazole Sodium (Protonix Inj) 40 mg IVP Q12H [facility] Last Admin: 12/04/17 08:11 Dose: 40 mg Pneumococcal Polyvalent Vaccine (Pneumovax 23 Vaccine) 0.5 ml IM .ONCE ONE Stop: 12/05/17 10:01 - Labs Labs: 12/04/17 07:12 12/04/17 07:12 PT 13.1 SECONDS (9.7-12.2) H 12/02/17 07:36 INR 1.2 12/02/17 07:36 APTT 31 SECONDS (21-34) 12/02/17 07:36 - Constitutional Appears: No Acute Distress - Eye Exam Eye Exam: Normal appearance - ENT Exam ENT Exam: Mucous Membranes Dry - Neck Exam Neck Exam: Full ROM. absent: Lymphadenopathy, Meningismus - Respiratory Exam Respiratory Exam: Clear to Ausculation Bilateral. absent: Rales, Rhonchi, Wheezes - Cardiovascular Exam Cardiovascular Exam: REGULAR RHYTHM, +S1, +S2, Murmur. absent: Gallop, JVD - GI/Abdominal Exam GI & Abdominal Exam: Soft. absent: Tenderness, Mass - Extremities Exam Extremities Exam: Calf Tenderness, Full ROM, Normal Capillary Refill. absent: Joint Swelling, Pedal Edema Assessment and Plan - Assessment and Plan (Free Text) Assessment: HTn; s/p surgery for perforated Ulcer w/ Abscess Cont meds/ supportive care NTP for now c/o still on NPO
[2017-12-04] MEDS: Enoxaparin 30 mg Syringe SC SCH (09:44)
[2017-12-04] MEDS: Lactated Ringer's 1,000 ML IV SCH (09:44)
[2017-12-04] MEDS: Nitroglycerin 0.2 mg/hr Top Patch TD SCH (10:37)
--- NOTE | 2017-12-04 14:32 | CP.PCM.PN ---
<Soto Puentes - Last Filed: 12/04/17 15:10> Subjective - Date & Time of Evaluation Date of Evaluation: 12/04/17 Time of Evaluation: 12:54 - Subjective Subjective: General Surgery Note for Dr. Haque Patient seen and examined at bedside. No acute event overnight. Patient is s/p ex lap with armando patch for duodenal perforation POD #2. Patient states pain is well controlled. She denies flatus or BM. Denies fever/chills, chest pain, sob, nausea/vomiting. Objective - Vital Signs/Intake and Output Vital Signs (last 24 hours): Temp Pulse Resp BP Pulse Ox 98.7 F 86 20 181/74 H 96 12/04/17 07:55 12/04/17 07:55 12/04/17 07:55 12/04/17 07:55 12/04/17 07:55 Intake and Output: 12/04/17 12/04/17 06:59 18:59 Intake Total 1250 Output Total 310 Balance 940 - Medications Medications: Current Medications Acetaminophen (Tylenol 650 Mg Supp) 650 mg [place] Q4 PRN PRN Reason: Fever >100.4 F Enoxaparin Sodium (Lovenox) 30 mg SC DAILY [facility] Last Admin: 12/04/17 09:44 Dose: 30 mg Hydromorphone HCl (Dilaudid) 1 mg IVP Q4H PRN PRN Reason: Pain, severe (8-10) Hydromorphone HCl (Dilaudid) 0.5 mg IVP Q4H PRN PRN Reason: Pain, moderate (4-7) Last Admin: 12/02/17 20:37 Dose: 0.5 mg Metronidazole (Flagyl) 500 mg in 100 mls @ 100 mls/hr IVPB Q8H [facility] Last Admin: 12/04/17 08:12 Dose: 100 mls/hr BUPIVACAINE 0.125%/0.9% NACL (Bupivacaine-Ns 0.125% On-Q Journeyman Electrician Pv Installer) 600 mls @ 4 mls/ hr IJ ONCE ONE Stop: 12/08/17 20:35 Last Admin: 12/02/17 17:25 Dose: 4 mls Lactated Ringer's (Lactated Ringer's) 1,000 mls @ 100 mls/hr IV .Q10H [facility] Last Admin: 12/04/17 09:44 Dose: Not Given Fluconazole (Diflucan Iv 100 Mg/50 Ml Ns) 50 mls @ 100 mls/hr IVPB Q24H [facility] Last Admin: 12/03/17 18:27 Dose: 100 mls/hr Piperacillin Sod/Tazobactam Sod (Zosyn 2.25 Gm Iv Premix) 2.25 gm in 50 mls @ 100 mls/hr IVPB Q8H [facility] Last Admin: 12/04/17 11:49 Dose: 100 mls/hr Potassium Chloride 10 meq/ (Dextrose/Sodium Chloride) 1,005 mls @ 75 mls/hr IV .[id number] [facility] Last Admin: 12/04/17 12:00 Dose: Not Given Nitroglycerin (Nitro-Dur 0.2 Mg/Hr Patch) 1 patch TD DAILY [facility] Last Admin: 12/04/17 10:37 Dose: 1 patch Ondansetron HCl (Zofran Inj) 4 mg IVP Q4 PRN PRN Reason: Nausea/Vomiting Pantoprazole Sodium (Protonix Inj) 40 mg IVP Q12H [facility] Last Admin: 12/04/17 08:11 Dose: 40 mg Pneumococcal Polyvalent Vaccine (Pneumovax 23 Vaccine) 0.5 ml IM .ONCE ONE Stop: 12/05/17 10:01 - Labs Labs: 12/04/17 07:12 12/04/17 07:12 PT 13.1 SECONDS (9.7-12.2) H 12/02/17 07:36 INR 1.2 12/02/17 07:36 APTT 31 SECONDS (21-34) 12/02/17 07:36 - Constitutional Appears: No Acute Distress - Head Exam Head Exam: ATRAUMATIC, NORMOCEPHALIC - Eye Exam Eye Exam: Normal appearance - ENT Exam ENT Exam: Mucous Membranes Moist - Respiratory Exam Respiratory Exam: NORMAL BREATHING PATTERN - Cardiovascular Exam Cardiovascular Exam: REGULAR RHYTHM - GI/Abdominal Exam GI & Abdominal Exam: Soft, Tenderness (mild, incisional), Normal Bowel Sounds Additional comments: midline scar clean, dry, and intact - Extremities Exam Extremities Exam: Normal Capillary Refill - Neurological Exam Neurological Exam: Alert, Awake, Oriented x3 - Psychiatric Exam Psychiatric exam: Normal Affect, Normal Mood - Skin Skin Exam: Dry, Intact, Normal Color, Warm Assessment and Plan - Assessment and Plan (Free Text) Plan: 82 F s/p Ex lap armando patch for duodenal perforation POD#2 -NGT until flatus -NPO, ice chips -IV Fluids -IV antibiotics -Analgesics/Anti-emetics PRN -IS/OOB/Ambulation -PT/OT -DVT/ GI ppx -Discussed with Dr. Garland Puentes PGY1 <Roman Haque - Last Filed: 12/07/17 21:55> Objective - Vital Signs/Intake and Output Vital Signs (last 24 hours): Temp Pulse Resp BP Pulse Ox 98.5 F 68 20 169/77 H 96 12/07/17 15:15 12/07/17 15:15 12/07/17 15:15 12/07/17 15:15 12/07/17 15:15 Intake and Output: 12/07/17 12/08/17 18:59 06:59 Intake Total 1550 Output Total 50 Balance 1500 - Medications Medications: Current Medications Acetaminophen (Tylenol 325mg Tab) 650 mg PO Q4 PRN PRN Reason: fever/pain Docusate Sodium (Colace) 100 mg PO DAILY [facility] Last Admin: 12/07/17 14:15 Dose: 100 mg Enoxaparin Sodium (Lovenox) 30 mg SC DAILY [facility] Last Admin: 12/07/17 09:01 Dose: 30 mg BUPIVACAINE 0.125%/0.9% NACL (Bupivacaine-Ns 0.125% On-Q Journeyman Electrician Pv Installer) 600 mls @ 4 mls/ hr IJ ONCE ONE Stop: 12/08/17 20:35 Last Admin: 12/02/17 17:25 Dose: 4 mls Fluconazole (Diflucan Iv 100 Mg/50 Ml Ns) 50 mls @ 100 mls/hr IVPB Q24H [facility] Last Admin: 12/07/17 18:45 Dose: 100 mls/hr Piperacillin Sod/Tazobactam Sod (Zosyn 2.25 Gm Iv Premix) 2.25 gm in 50 mls @ 100 mls/hr IVPB Q8H [facility] Last Admin: 12/07/17 20:43 Dose: 100 mls/hr Potassium Chloride 10 meq/ (Dextrose/Sodium Chloride) 1,005 mls @ 75 mls/hr IV .[id number] [facility] Last Admin: 12/07/17 06:39 Dose: 75 mls/hr Metronidazole 250 mg/ (Miscellaneous) 50 mls @ 100 mls/hr IVPB Q8 [facility] Losartan Potassium (Cozaar) 100 mg PO DAILY [facility] Last Admin: 12/07/17 09:01 Dose: 100 mg Metoprolol Succinate (Toprol Xl) 12.5 mg PO DAILY [facility] Last Admin: 12/07/17 14:15 Dose: 12.5 mg Ondansetron HCl (Zofran Inj) 4 mg IVP Q4 PRN PRN Reason: Nausea/Vomiting Last Admin: 12/07/17 04:14 Dose: 4 mg Oxycodone/Acetaminophen (Percocet 5/325 Mg Tab) 2 tab PO Q4H PRN PRN Reason: Pain, severe (8-10) Stop: 12/10/17 13:41 Pantoprazole Sodium (Protonix Ec Tab) 40 mg PO DAILY [facility] Potassium Chloride (Potassium Chloride Oral Soln) 20 meq PO DAILY [facility] Last Admin: 12/07/17 10:08 Dose: 20 meq - Labs Labs: 12/07/17 07:23 12/07/17 07:23 PT 13.1 SECONDS (9.7-12.2) H 12/02/17 07:36 INR 1.2 12/02/17 07:36 APTT 31 SECONDS (21-34) 12/02/17 07:36 Attending/Attestation - Attestation I have personally seen and examined this patient.: Yes I have fully participated in the care of the patient.: Yes I have reviewed all pertinent clinical information, including history, physical exam and plan: Yes Notes (Text): Pt was seen and examined at bedside Agree with above note and assessment
[2017-12-04] MEDS: Fluconazole IV 100mg/50 ml NS 50 ML IVPB SCH (18:57)
[2017-12-05] MEDS: metroNIDAZOLE IV 500 mg/100 ml 500 MG/100 ML BAG IVPB SCH ×3 (01:47→16:56)
[2017-12-05] MEDS: Potassium Chloride 10 MEQ in Dextrose 5%/0.9% NS 1,000 ML IV SCH ×2 (01:50→14:23)
[2017-12-05] MEDS: Piperacill/Tazo 2.25gm in Dex 2.25 GM/50 ML BAG IVPB SCH ×3 (05:00→20:20)
[2017-12-05] MEDS: Lactated Ringer's 1,000 ML IV SCH ×2 (06:18→15:35)
[2017-12-05] MEDS: Nitroglycerin 0.2 mg/hr Top Patch TD SCH (09:26)
[2017-12-05] MEDS: Enoxaparin 30 mg Syringe SC SCH (09:26)
[2017-12-05] MEDS ORDERED: Pneumococcal 23-Valent Vaccine IM ONE (10:00)
[2017-12-05] MEDS ORDERED: Influenza Vaccine 60 mcg/0.5 mL SYR (4YR UP) IM ONE (10:00)
[2017-12-05 11:58] LABS: BASO % 0.2 % (0.0-2.0); EOS % 0.1 % (0.0-4.0); HEMOGLOBIN 10.4 g/dL (11.0-16.0); LYMPH % 6.6 % (20.0-40.0); MEAN CORPUSCULAR HEMOGLOBIN 30.9 pg (27.0-31.0); MEAN CORPUSCULAR HGB CONC 34.4 g/dL (33.0-37.0); MONO # 0.9 K/uL (0.0-0.8); MONO % 5.5 % (0.0-10.0); NEUT # 13.9 K/uL (1.8-7.0); NEUT % 87.6 % (50.0-75.0); PLATELET COUNT 277 K/uL (130-400); RBC 3.37 Mil/uL (3.80-5.20); RED CELL DISTRIBUTION WIDTH 14.6 % (11.5-14.5); WHITE BLOOD COUNT 15.9 K/uL (4.8-10.8)
[2017-12-05 12:00] LABS: MEAN CELL VOLUME 89.9 fL (81.0-99.0)
--- NOTE | 2017-12-05 12:18 | CP.PCM.PN ---
<JoseDemetrio - Last Filed: 12/05/17 12:17> Subjective - Date & Time of Evaluation Date of Evaluation: 12/05/17 Time of Evaluation: 12:17 - Subjective Subjective: Surgery Pt s&e. NAEON. Reports flatus. No BM. Pain controlled. Denies F/C?N/V/D/CP/SOB. Objective - Vital Signs/Intake and Output Vital Signs (last 24 hours): Temp Pulse Resp BP Pulse Ox 98.5 F 77 20 172/86 H 96 12/05/17 08:20 12/05/17 08:20 12/05/17 08:20 12/05/17 08:20 12/05/17 08:20 Intake and Output: 12/05/17 12/05/17 06:59 18:59 Intake Total 600 600 Output Total 180 740 Balance 420 -140 - Medications Medications: Current Medications Acetaminophen (Tylenol 650 Mg Supp) 650 mg NM Q4 PRN PRN Reason: Fever >100.4 F Enoxaparin Sodium (Lovenox) 30 mg SC DAILY [facility] Last Admin: 12/05/17 09:26 Dose: 30 mg Hydromorphone HCl (Dilaudid) 1 mg IVP Q4H PRN PRN Reason: Pain, severe (8-10) Hydromorphone HCl (Dilaudid) 0.5 mg IVP Q4H PRN PRN Reason: Pain, moderate (4-7) Last Admin: 12/05/17 02:50 Dose: 0.5 mg Metronidazole (Flagyl) 500 mg in 100 mls @ 100 mls/hr IVPB Q8H [facility] Last Admin: 12/05/17 08:46 Dose: 100 mls/hr BUPIVACAINE 0.125%/0.9% NACL (Bupivacaine-Ns 0.125% On-Q Driver Trainee) 600 mls @ 4 mls/ hr IJ ONCE ONE Stop: 12/08/17 20:35 Last Admin: 12/02/17 17:25 Dose: 4 mls Lactated Ringer's (Lactated Ringer's) 1,000 mls @ 100 mls/hr IV .Q10H [facility] Last Admin: 12/05/17 06:18 Dose: Not Given Fluconazole (Diflucan Iv 100 Mg/50 Ml Ns) 50 mls @ 100 mls/hr IVPB Q24H [facility] Last Admin: 12/04/17 18:57 Dose: 100 mls/hr Piperacillin Sod/Tazobactam Sod (Zosyn 2.25 Gm Iv Premix) 2.25 gm in 50 mls @ 100 mls/hr IVPB Q8H [facility] Last Admin: 12/05/17 12:09 Dose: 100 mls/hr Potassium Chloride 10 meq/ (Dextrose/Sodium Chloride) 1,005 mls @ 75 mls/hr IV .[id number] [facility] Last Admin: 12/05/17 01:50 Dose: Not Given Nitroglycerin (Nitro-Dur 0.2 Mg/Hr Patch) 1 patch TD DAILY [facility] Last Admin: 12/05/17 09:26 Dose: 1 patch Ondansetron HCl (Zofran Inj) 4 mg IVP Q4 PRN PRN Reason: Nausea/Vomiting Pantoprazole Sodium (Protonix Inj) 40 mg IVP Q12H [facility] Last Admin: 12/05/17 08:46 Dose: 40 mg - Labs Labs: 12/05/17 11:48 12/04/17 07:12 PT 13.1 SECONDS (9.7-12.2) H 12/02/17 07:36 INR 1.2 12/02/17 07:36 APTT 31 SECONDS (21-34) 12/02/17 07:36 - Constitutional Appears: No Acute Distress - Head Exam Head Exam: ATRAUMATIC, NORMAL INSPECTION, NORMOCEPHALIC - Eye Exam Eye Exam: EOMI, Normal appearance, PERRL Pupil Exam: NORMAL ACCOMODATION, PERRL - ENT Exam ENT Exam: Mucous Membranes Moist, Normal Exam - Neck Exam Neck Exam: Full ROM, Normal Inspection. absent: Lymphadenopathy - Respiratory Exam Respiratory Exam: Clear to Ausculation Bilateral, NORMAL BREATHING PATTERN - Cardiovascular Exam Cardiovascular Exam: REGULAR RHYTHM, +S1, +S2. absent: Murmur - GI/Abdominal Exam GI & Abdominal Exam: Soft, Normal Bowel Sounds. absent: Distended, Firm, Guarding, Rigid, Tenderness Additional comments: ss 40cc/24hrs - Exam Exam: NORMAL INSPECTION - Extremities Exam Extremities Exam: Full ROM, Normal Capillary Refill, Normal Inspection. absent : Joint Swelling, Pedal Edema - Back Exam Back Exam: NORMAL INSPECTION - Neurological Exam Neurological Exam: Alert, Awake, CN II-XII Intact, Normal Gait, Oriented x3 - Psychiatric Exam Psychiatric exam: Normal Affect, Normal Mood - Skin Skin Exam: Dry, Intact, Normal Color, Warm Assessment and Plan - Assessment and Plan (Free Text) Assessment: 82 F s/p Ex lap armando patch for duodenal perforation POD#3 -NGT DC -CLD -IV Fluids -IV antibiotics -Analgesics/Anti-emetics PRN -IS/OOB/Ambulation -PT/OT -DVT/ GI ppx -Discussed with Dr. Haque <Roman Haque - Last Filed: 12/07/17 21:55> Objective - Vital Signs/Intake and Output Vital Signs (last 24 hours): Temp Pulse Resp BP Pulse Ox 98.5 F 68 20 169/77 H 96 12/07/17 15:15 12/07/17 15:15 12/07/17 15:15 12/07/17 15:15 12/07/17 15:15 Intake and Output: 12/07/17 12/08/17 18:59 06:59 Intake Total 1550 Output Total 50 Balance 1500 - Medications Medications: Current Medications Acetaminophen (Tylenol 325mg Tab) 650 mg PO Q4 PRN PRN Reason: fever/pain Docusate Sodium (Colace) 100 mg PO DAILY [facility] Last Admin: 12/07/17 14:15 Dose: 100 mg Enoxaparin Sodium (Lovenox) 30 mg SC DAILY [facility] Last Admin: 12/07/17 09:01 Dose: 30 mg BUPIVACAINE 0.125%/0.9% NACL (Bupivacaine-Ns 0.125% On-Q Driver Trainee) 600 mls @ 4 mls/ hr IJ ONCE ONE Stop: 12/08/17 20:35 Last Admin: 12/02/17 17:25 Dose: 4 mls Fluconazole (Diflucan Iv 100 Mg/50 Ml Ns) 50 mls @ 100 mls/hr IVPB Q24H [facility] Last Admin: 12/07/17 18:45 Dose: 100 mls/hr Piperacillin Sod/Tazobactam Sod (Zosyn 2.25 Gm Iv Premix) 2.25 gm in 50 mls @ 100 mls/hr IVPB Q8H [facility] Last Admin: 12/07/17 20:43 Dose: 100 mls/hr Potassium Chloride 10 meq/ (Dextrose/Sodium Chloride) 1,005 mls @ 75 mls/hr IV .[id number] [facility] Last Admin: 12/07/17 06:39 Dose: 75 mls/hr Metronidazole 250 mg/ (Miscellaneous) 50 mls @ 100 mls/hr IVPB Q8 [facility] Losartan Potassium (Cozaar) 100 mg PO DAILY [facility] Last Admin: 12/07/17 09:01 Dose: 100 mg Metoprolol Succinate (Toprol Xl) 12.5 mg PO DAILY [facility] Last Admin: 12/07/17 14:15 Dose: 12.5 mg Ondansetron HCl (Zofran Inj) 4 mg IVP Q4 PRN PRN Reason: Nausea/Vomiting Last Admin: 12/07/17 04:14 Dose: 4 mg Oxycodone/Acetaminophen (Percocet 5/325 Mg Tab) 2 tab PO Q4H PRN PRN Reason: Pain, severe (8-10) Stop: 12/10/17 13:41 Pantoprazole Sodium (Protonix Ec Tab) 40 mg PO DAILY [facility] Potassium Chloride (Potassium Chloride Oral Soln) 20 meq PO DAILY [facility] Last Admin: 12/07/17 10:08 Dose: 20 meq - Labs Labs: 12/07/17 07:23 12/07/17 07:23 PT 13.1 SECONDS (9.7-12.2) H 12/02/17 07:36 INR 1.2 12/02/17 07:36 APTT 31 SECONDS (21-34) 12/02/17 07:36 Attending/Attestation - Attestation I have personally seen and examined this patient.: Yes I have fully participated in the care of the patient.: Yes I have reviewed all pertinent clinical information, including history, physical exam and plan: Yes Notes (Text): Pt was seen and examined at bedside Agree with above note and assessment Pt is improving OOB to walk IV antibiotics Plan d.w pt in detail
[2017-12-05 12:19] LABS: ALB/GLOB RATIO 0.8 (1.0-2.1); ALBUMIN 2.3 g/dL (3.5-5.0); ALT/SGPT 28 U/L (9-52); AST/SGOT 21 U/L (14-36); BLOOD UREA NITROGEN 17 mg/dL (7-17); GFR AFRICAN-AMERICAN > 60; GFR NON-AFRICAN AMERICAN 60
[2017-12-05 12:48] LABS: BANDS 1 % (0-2); LYMPHOCYTE 6 % (20-40); MONOCYTE 5 % (0-10); NEUTROPHIL 88 % (50-75); PLATELET ESTIMATE NORMAL (NORMAL); TOTAL CELLS COUNTED 100
[2017-12-05 12:49] LABS: HYPOCHROMIC SLIGHT; OVALOCYTES SLIGHT; POLYCHROMIC SLIGHT; TARGET CELLS SLIGHT
--- NOTE | 2017-12-05 16:50 | CP.PCM.PN ---
Subjective - Date & Time of Evaluation Date of Evaluation: 12/05/17 Time of Evaluation: 16:48 - Subjective Subjective: S: Feels beeter. Passed gas. Tolerate soft diet. Objective - Vital Signs/Intake and Output Vital Signs (last 24 hours): Temp Pulse Resp BP Pulse Ox 98.5 F 77 20 172/86 H 96 12/05/17 08:20 12/05/17 08:20 12/05/17 08:20 12/05/17 08:20 12/05/17 08:20 Intake and Output: 12/05/17 12/05/17 06:59 18:59 Intake Total 600 1700 Output Total 180 930 Balance 420 770 - Medications Medications: Current Medications Acetaminophen (Tylenol 650 Mg Supp) 650 mg SC Q4 PRN PRN Reason: Fever >100.4 F Enoxaparin Sodium (Lovenox) 30 mg SC DAILY [facility] Last Admin: 12/05/17 09:26 Dose: 30 mg Metronidazole (Flagyl) 500 mg in 100 mls @ 100 mls/hr IVPB Q8H [facility] Last Admin: 12/05/17 08:46 Dose: 100 mls/hr BUPIVACAINE 0.125%/0.9% NACL (Bupivacaine-Ns 0.125% On-Q Appraiser Auditor) 600 mls @ 4 mls/ hr IJ ONCE ONE Stop: 12/08/17 20:35 Last Admin: 12/02/17 17:25 Dose: 4 mls Lactated Ringer's (Lactated Ringer's) 1,000 mls @ 100 mls/hr IV .Q10H [facility] Last Admin: 12/05/17 06:18 Dose: Not Given Fluconazole (Diflucan Iv 100 Mg/50 Ml Ns) 50 mls @ 100 mls/hr IVPB Q24H [facility] Last Admin: 12/04/17 18:57 Dose: 100 mls/hr Piperacillin Sod/Tazobactam Sod (Zosyn 2.25 Gm Iv Premix) 2.25 gm in 50 mls @ 100 mls/hr IVPB Q8H [facility] Last Admin: 12/05/17 12:09 Dose: 100 mls/hr Potassium Chloride 10 meq/ (Dextrose/Sodium Chloride) 1,005 mls @ 75 mls/hr IV .[id number] [facility] Last Admin: 12/05/17 14:23 Dose: 75 mls/hr Nitroglycerin (Nitro-Dur 0.2 Mg/Hr Patch) 1 patch TD DAILY [facility] Last Admin: 12/05/17 09:26 Dose: 1 patch Ondansetron HCl (Zofran Inj) 4 mg IVP Q4 PRN PRN Reason: Nausea/Vomiting Pantoprazole Sodium (Protonix Inj) 40 mg IVP Q12H [facility] Last Admin: 12/05/17 08:46 Dose: 40 mg - Labs Labs: 12/05/17 11:48 12/05/17 11:48 PT 13.1 SECONDS (9.7-12.2) H 12/02/17 07:36 INR 1.2 12/02/17 07:36 APTT 31 SECONDS (21-34) 12/02/17 07:36 - Constitutional Appears: No Acute Distress - Head Exam Head Exam: NORMAL INSPECTION - Eye Exam Eye Exam: Normal appearance - ENT Exam ENT Exam: Normal Exam - Neck Exam Neck Exam: Normal Inspection - Respiratory Exam Respiratory Exam: NORMAL BREATHING PATTERN - Cardiovascular Exam Cardiovascular Exam: REGULAR RHYTHM - GI/Abdominal Exam GI & Abdominal Exam: Soft (abdominal dressing noted) - Rectal Exam Rectal Exam: Deferred - Extremities Exam Extremities Exam: Normal Inspection - Neurological Exam Neurological Exam: Alert Assessment and Plan (1) Perforated abdominal viscus Status: Acute (2) HTN (hypertension) Status: Chronic - Assessment and Plan (Free Text) Assessment: A/P: Continue post-operative care. IV fluid. IV antibiotic
[2017-12-05] MEDS: Fluconazole IV 100mg/50 ml NS 50 ML IVPB SCH (19:17)
[2017-12-06] MEDS: metroNIDAZOLE IV 500 mg/100 ml 500 MG/100 ML BAG IVPB SCH ×3 (01:07→17:45)
[2017-12-06] MEDS: Potassium Chloride 10 MEQ in Dextrose 5%/0.9% NS 1,000 ML IV SCH ×3 (04:00→17:25)
[2017-12-06] MEDS: Piperacill/Tazo 2.25gm in Dex 2.25 GM/50 ML BAG IVPB SCH ×3 (05:00→20:20)
--- NOTE | 2017-12-06 08:20 | CP.PCM.PN ---
Subjective - Date & Time of Evaluation Date of Evaluation: 12/06/17 Time of Evaluation: 07:55 - Subjective Subjective: Pt feels better; slowly feels she is stronger. No CP, no SOB, no edema, no nausea/ vomiting, no cough Objective - Vital Signs/Intake and Output Vital Signs (last 24 hours): Temp Pulse Resp BP Pulse Ox 98.2 F 82 20 165/77 H 94 L 12/06/17 00:00 12/06/17 00:00 12/06/17 00:00 12/05/17 15:15 12/06/17 00:00 Intake and Output: 12/06/17 12/06/17 06:59 18:59 Intake Total 1420 Output Total 70 Balance 1350 - Medications Medications: Current Medications Acetaminophen (Tylenol 650 Mg Supp) 650 mg NE Q4 PRN PRN Reason: Fever >100.4 F Enoxaparin Sodium (Lovenox) 30 mg SC DAILY [facility] Last Admin: 12/05/17 09:26 Dose: 30 mg Metronidazole (Flagyl) 500 mg in 100 mls @ 100 mls/hr IVPB Q8H [facility] Last Admin: 12/06/17 01:07 Dose: 100 mls/hr BUPIVACAINE 0.125%/0.9% NACL (Bupivacaine-Ns 0.125% On-Q Thermite Welder) 600 mls @ 4 mls/ hr IJ ONCE ONE Stop: 12/08/17 20:35 Last Admin: 12/02/17 17:25 Dose: 4 mls Fluconazole (Diflucan Iv 100 Mg/50 Ml Ns) 50 mls @ 100 mls/hr IVPB Q24H [facility] Last Admin: 12/05/17 19:17 Dose: 100 mls/hr Piperacillin Sod/Tazobactam Sod (Zosyn 2.25 Gm Iv Premix) 2.25 gm in 50 mls @ 100 mls/hr IVPB Q8H [facility] Last Admin: 12/06/17 05:00 Dose: 100 mls/hr Potassium Chloride 10 meq/ (Dextrose/Sodium Chloride) 1,005 mls @ 75 mls/hr IV .[id number] [facility] Last Admin: 12/05/17 14:23 Dose: 75 mls/hr Losartan Potassium (Cozaar) 100 mg PO DAILY [facility] Ondansetron HCl (Zofran Inj) 4 mg IVP Q4 PRN PRN Reason: Nausea/Vomiting Pantoprazole Sodium (Protonix Inj) 40 mg IVP Q12H [facility] Last Admin: 12/05/17 20:20 Dose: 40 mg - Labs Labs: 12/05/17 11:48 12/05/17 11:48 PT 13.1 SECONDS (9.7-12.2) H 12/02/17 07:36 INR 1.2 12/02/17 07:36 APTT 31 SECONDS (21-34) 12/02/17 07:36 - Constitutional Appears: No Acute Distress - Eye Exam Eye Exam: Normal appearance - ENT Exam ENT Exam: Mucous Membranes Moist - Neck Exam Neck Exam: Full ROM, Normal Inspection. absent: Lymphadenopathy, Thyromegaly - Respiratory Exam Respiratory Exam: Decreased Breath Sounds. absent: Rales, Rhonchi, Wheezes - Cardiovascular Exam Cardiovascular Exam: +S1, +S2. absent: Gallop, REGULAR RHYTHM, JVD - GI/Abdominal Exam GI & Abdominal Exam: Soft, Hypoactive Bowel Sounds. absent: Mass, Pulsatile Mass - Extremities Exam Extremities Exam: Full ROM, Normal Capillary Refill. absent: Calf Tenderness, Joint Swelling, Pedal Edema Assessment and Plan - Assessment and Plan (Free Text) Assessment: s/p Surgery for perforated duodenal ulcer HTN, IFG Change NTP to Losartan supportive care Recheck labs
--- NOTE | 2017-12-06 09:30 | CP.PCM.PN ---
<JoseDemetrio - Last Filed: 12/06/17 09:27> Subjective - Date & Time of Evaluation Date of Evaluation: 12/06/17 Time of Evaluation: 09:27 - Subjective Subjective: Surgery pt s&e. NAEON. TOlerating CLD. + VOid. AMbulate w help. On Q DC ed today. Pain controlled. + flatus. No BM Objective - Vital Signs/Intake and Output Vital Signs (last 24 hours): Temp Pulse Resp BP Pulse Ox 97.4 F L 76 20 175/80 H 96 12/06/17 08:35 12/06/17 08:35 12/06/17 08:35 12/06/17 08:35 12/06/17 08:35 Intake and Output: 12/06/17 12/06/17 06:59 18:59 Intake Total 1420 Output Total 70 Balance 1350 - Medications Medications: Current Medications Acetaminophen (Tylenol 650 Mg Supp) [address] Q4 PRN PRN Reason: Fever >100.4 F Enoxaparin Sodium (Lovenox) 30 mg SC DAILY [facility] Last Admin: 12/05/17 09:26 Dose: 30 mg Metronidazole (Flagyl) 500 mg in 100 mls @ 100 mls/hr IVPB Q8H [facility] Last Admin: 12/06/17 08:51 Dose: 100 mls/hr BUPIVACAINE 0.125%/0.9% NACL (Bupivacaine-Ns 0.125% On-Q Anesthetic Assistant) 600 mls @ 4 mls/ hr IJ ONCE ONE Stop: 12/08/17 20:35 Last Admin: 12/02/17 17:25 Dose: 4 mls Fluconazole (Diflucan Iv 100 Mg/50 Ml Ns) 50 mls @ 100 mls/hr IVPB Q24H [facility] Last Admin: 12/05/17 19:17 Dose: 100 mls/hr Piperacillin Sod/Tazobactam Sod (Zosyn 2.25 Gm Iv Premix) 2.25 gm in 50 mls @ 100 mls/hr IVPB Q8H [facility] Last Admin: 12/06/17 05:00 Dose: 100 mls/hr Potassium Chloride 10 meq/ (Dextrose/Sodium Chloride) 1,005 mls @ 75 mls/hr IV .[id number] [facility] Last Admin: 12/05/17 14:23 Dose: 75 mls/hr Losartan Potassium (Cozaar) 100 mg PO DAILY [facility] Ondansetron HCl (Zofran Inj) 4 mg IVP Q4 PRN PRN Reason: Nausea/Vomiting Pantoprazole Sodium (Protonix Inj) 40 mg IVP Q12H [facility] Last Admin: 12/06/17 08:51 Dose: 40 mg - Labs Labs: 12/05/17 11:48 12/05/17 11:48 PT 13.1 SECONDS (9.7-12.2) H 12/02/17 07:36 INR 1.2 12/02/17 07:36 APTT 31 SECONDS (21-34) 12/02/17 07:36 - Constitutional Appears: No Acute Distress - Head Exam Head Exam: ATRAUMATIC, NORMAL INSPECTION, NORMOCEPHALIC - Eye Exam Eye Exam: EOMI, Normal appearance, PERRL Pupil Exam: NORMAL ACCOMODATION, PERRL - ENT Exam ENT Exam: Mucous Membranes Moist, Normal Exam - Neck Exam Neck Exam: Full ROM, Normal Inspection. absent: Lymphadenopathy - Respiratory Exam Respiratory Exam: Clear to Ausculation Bilateral, NORMAL BREATHING PATTERN - Cardiovascular Exam Cardiovascular Exam: REGULAR RHYTHM, +S1, +S2. absent: Murmur - GI/Abdominal Exam GI & Abdominal Exam: Soft, Tenderness, Normal Bowel Sounds. absent: Distended, Firm, Guarding, Rigid Additional comments: Drain in place. Incision C/D/I. - Rectal Exam Rectal Exam: NORMAL INSPECTION - Exam Exam: NORMAL INSPECTION - Extremities Exam Extremities Exam: Full ROM, Normal Capillary Refill, Normal Inspection. absent : Joint Swelling, Pedal Edema - Back Exam Back Exam: NORMAL INSPECTION - Neurological Exam Neurological Exam: Alert, Awake, CN II-XII Intact, Normal Gait, Oriented x3 - Psychiatric Exam Psychiatric exam: Normal Affect, Normal Mood - Skin Skin Exam: Dry, Intact, Normal Color, Warm Assessment and Plan - Assessment and Plan (Free Text) Assessment: 82 F s/p Ex lap armando patch for duodenal perforation POD#4 -MOnitor BM -FLD -IV Fluids -IV antibiotics -Analgesics/Anti-emetics PRN -IS/OOB/Ambulation -PT/OT -DVT/ GI ppx -Will Discuss with Dr. Haque <Roman Haque - Last Filed: 12/07/17 21:56> Objective - Vital Signs/Intake and Output Vital Signs (last 24 hours): Temp Pulse Resp BP Pulse Ox 98.5 F 68 20 169/77 H 96 12/07/17 15:15 12/07/17 15:15 12/07/17 15:15 12/07/17 15:15 12/07/17 15:15 Intake and Output: 12/07/17 12/08/17 18:59 06:59 Intake Total 1550 Output Total 50 Balance 1500 - Medications Medications: Current Medications Acetaminophen (Tylenol 325mg Tab) 650 mg PO Q4 PRN PRN Reason: fever/pain Docusate Sodium (Colace) 100 mg PO DAILY [facility] Last Admin: 12/07/17 14:15 Dose: 100 mg Enoxaparin Sodium (Lovenox) 30 mg SC DAILY [facility] Last Admin: 12/07/17 09:01 Dose: 30 mg BUPIVACAINE 0.125%/0.9% NACL (Bupivacaine-Ns 0.125% On-Q Anesthetic Assistant) 600 mls @ 4 mls/ hr IJ ONCE ONE Stop: 12/08/17 20:35 Last Admin: 12/02/17 17:25 Dose: 4 mls Fluconazole (Diflucan Iv 100 Mg/50 Ml Ns) 50 mls @ 100 mls/hr IVPB Q24H [facility] Last Admin: 12/07/17 18:45 Dose: 100 mls/hr Piperacillin Sod/Tazobactam Sod (Zosyn 2.25 Gm Iv Premix) 2.25 gm in 50 mls @ 100 mls/hr IVPB Q8H [facility] Last Admin: 12/07/17 20:43 Dose: 100 mls/hr Potassium Chloride 10 meq/ (Dextrose/Sodium Chloride) 1,005 mls @ 75 mls/hr IV .[id number] [facility] Last Admin: 12/07/17 06:39 Dose: 75 mls/hr Metronidazole 250 mg/ (Miscellaneous) 50 mls @ 100 mls/hr IVPB Q8 [facility] Losartan Potassium (Cozaar) 100 mg PO DAILY [facility] Last Admin: 12/07/17 09:01 Dose: 100 mg Metoprolol Succinate (Toprol Xl) 12.5 mg PO DAILY [facility] Last Admin: 12/07/17 14:15 Dose: 12.5 mg Ondansetron HCl (Zofran Inj) 4 mg IVP Q4 PRN PRN Reason: Nausea/Vomiting Last Admin: 12/07/17 04:14 Dose: 4 mg Oxycodone/Acetaminophen (Percocet 5/325 Mg Tab) 2 tab PO Q4H PRN PRN Reason: Pain, severe (8-10) Stop: 12/10/17 13:41 Pantoprazole Sodium (Protonix Ec Tab) 40 mg PO DAILY [facility] Potassium Chloride (Potassium Chloride Oral Soln) 20 meq PO DAILY [facility] Last Admin: 12/07/17 10:08 Dose: 20 meq - Labs Labs: 12/07/17 07:23 12/07/17 07:23 PT 13.1 SECONDS (9.7-12.2) H 12/02/17 07:36 INR 1.2 12/02/17 07:36 APTT 31 SECONDS (21-34) 12/02/17 07:36 Attending/Attestation - Attestation I have personally seen and examined this patient.: Yes I have fully participated in the care of the patient.: Yes I have reviewed all pertinent clinical information, including history, physical exam and plan: Yes Notes (Text): Pt was seen and examined at bedside Agree with above note and assessment Start liquid diet OOB to walk IV antibiotics Plan d.w pt in detail Risk and benefit explained in detail.
[2017-12-06] MEDS: Enoxaparin 30 mg Syringe SC SCH (09:45)
[2017-12-06 12:02] LABS: HEMOGLOBIN 10.3 g/dL (11.0-16.0); MEAN CELL VOLUME 90.8 fL (81.0-99.0); MEAN CORPUSCULAR HEMOGLOBIN 31.7 pg (27.0-31.0); MEAN CORPUSCULAR HGB CONC 34.9 g/dL (33.0-37.0); RBC 3.23 Mil/uL (3.80-5.20); RED CELL DISTRIBUTION WIDTH 14.4 % (11.5-14.5); WHITE BLOOD COUNT 10.7 K/uL (4.8-10.8)
[2017-12-06] MEDS: Fluconazole IV 100mg/50 ml NS 50 ML IVPB SCH (19:42)
[2017-12-07] MEDS: metroNIDAZOLE IV 500 mg/100 ml 500 MG/100 ML BAG IVPB SCH ×2 (01:00→08:52)
[2017-12-07] MEDS: Piperacill/Tazo 2.25gm in Dex 2.25 GM/50 ML BAG IVPB SCH ×3 (04:09→20:43)
[2017-12-07] MEDS: Potassium Chloride 10 MEQ in Dextrose 5%/0.9% NS 1,000 ML IV SCH (06:39)
[2017-12-07 07:54] LABS: BASO % 0.1 % (0.0-2.0); EOS # 0.3 K/uL (0.0-0.7); EOS % 2.5 % (0.0-4.0); HEMOGLOBIN 9.7 g/dL (11.0-16.0); LYMPH # 1.6 K/uL (1.0-4.3); LYMPH % 14.2 % (20.0-40.0); MEAN CORPUSCULAR HEMOGLOBIN 28.9 pg (27.0-31.0); MEAN CORPUSCULAR HGB CONC 33.8 g/dL (33.0-37.0); MONO # 1.1 K/uL (0.0-0.8); MONO % 9.7 % (0.0-10.0); NEUT # 8.2 K/uL (1.8-7.0); NEUT % 73.5 % (50.0-75.0); NRBC % 0.1 % (0.0-2.0); RBC 3.36 Mil/uL (3.80-5.20); RED CELL DISTRIBUTION WIDTH 14.8 % (11.5-14.5); WHITE BLOOD COUNT 11.2 K/uL (4.8-10.8)
[2017-12-07 08:13] LABS: MEAN CELL VOLUME 85.4 fL (81.0-99.0)
[2017-12-07 08:17] LABS: ALB/GLOB RATIO 0.8 (1.0-2.1); ALBUMIN 2.3 g/dL (3.5-5.0); ALT/SGPT 35 U/L (9-52); AST/SGOT 28 U/L (14-36); BLOOD UREA NITROGEN 9 mg/dL (7-17); GFR AFRICAN-AMERICAN > 60; GFR NON-AFRICAN AMERICAN > 60
[2017-12-07] MEDS: Enoxaparin 30 mg Syringe SC SCH (09:01)
[2017-12-07] MEDS: Potassium Chloride 20 mEq/15 ml LIQ UD PO SCH (10:08)
--- NOTE | 2017-12-07 13:38 | CP.PCM.PN ---
<Bret Garciaroseanne - Last Filed: 12/07/17 13:35> Subjective - Date & Time of Evaluation Date of Evaluation: 12/07/17 Time of Evaluation: 13:35 - Subjective Subjective: Surgery Pt s&e. NAEON. Denies F/C?N/V/D/CP/SOB. Using IS. Ambulates w help. Had BM. Objective - Vital Signs/Intake and Output Vital Signs (last 24 hours): Temp Pulse Resp BP Pulse Ox 98.5 F 67 20 180/75 H 95 12/07/17 08:30 12/07/17 08:30 12/07/17 08:30 12/07/17 08:30 12/07/17 08:30 Intake and Output: 12/07/17 12/07/17 06:59 18:59 Intake Total 700 700 Output Total 30 30 Balance 670 670 - Medications Medications: Current Medications Acetaminophen (Tylenol 650 Mg Supp) 650 mg TX Q4 PRN PRN Reason: Fever >100.4 F Enoxaparin Sodium (Lovenox) 30 mg SC DAILY [facility] Last Admin: 12/07/17 09:01 Dose: 30 mg BUPIVACAINE 0.125%/0.9% NACL (Bupivacaine-Ns 0.125% On-Q Engineering Technician Parking) 600 mls @ 4 mls/ hr IJ ONCE ONE Stop: 12/08/17 20:35 Last Admin: 12/02/17 17:25 Dose: 4 mls Fluconazole (Diflucan Iv 100 Mg/50 Ml Ns) 50 mls @ 100 mls/hr IVPB Q24H [facility] Last Admin: 12/06/17 19:42 Dose: 100 mls/hr Piperacillin Sod/Tazobactam Sod (Zosyn 2.25 Gm Iv Premix) 2.25 gm in 50 mls @ 100 mls/hr IVPB Q8H [facility] Last Admin: 12/07/17 11:46 Dose: 100 mls/hr Potassium Chloride 10 meq/ (Dextrose/Sodium Chloride) 1,005 mls @ 75 mls/hr IV .[id number] [facility] Last Admin: 12/07/17 06:39 Dose: 75 mls/hr Potassium Chloride (Potassium Chloride 20 Meq/100 Ml) 20 meq in 100 mls @ 50 mls/hr IVPB ONCE ONE Stop: 12/07/17 13:58 Last Admin: 12/07/17 11:44 Dose: 50 mls/hr Losartan Potassium (Cozaar) 100 mg PO DAILY [facility] Last Admin: 12/07/17 09:01 Dose: 100 mg Metoprolol Succinate (Toprol Xl) 12.5 mg PO DAILY [facility] Ondansetron HCl (Zofran Inj) 4 mg IVP Q4 PRN PRN Reason: Nausea/Vomiting Last Admin: 12/07/17 04:14 Dose: 4 mg Pantoprazole Sodium (Protonix Inj) 40 mg IVP Q12H [facility] Last Admin: 12/07/17 08:52 Dose: 40 mg Potassium Chloride (Potassium Chloride Oral Soln) 20 meq PO DAILY [facility] Last Admin: 12/07/17 10:08 Dose: 20 meq - Labs Labs: 12/07/17 07:23 12/07/17 07:23 PT 13.1 SECONDS (9.7-12.2) H 12/02/17 07:36 INR 1.2 12/02/17 07:36 APTT 31 SECONDS (21-34) 12/02/17 07:36 - Constitutional Appears: No Acute Distress - Head Exam Head Exam: ATRAUMATIC, NORMAL INSPECTION, NORMOCEPHALIC - Eye Exam Eye Exam: EOMI, Normal appearance, PERRL Pupil Exam: NORMAL ACCOMODATION, PERRL - ENT Exam ENT Exam: Mucous Membranes Moist, Normal Exam - Neck Exam Neck Exam: Full ROM, Normal Inspection. absent: Lymphadenopathy - Respiratory Exam Respiratory Exam: Clear to Ausculation Bilateral, NORMAL BREATHING PATTERN - Cardiovascular Exam Cardiovascular Exam: REGULAR RHYTHM, +S1, +S2. absent: Murmur - GI/Abdominal Exam GI & Abdominal Exam: Soft, Normal Bowel Sounds. absent: Distended, Firm, Guarding, Rigid, Tenderness Additional comments: Incision C/D/I. Drain in place - Extremities Exam Extremities Exam: Full ROM, Normal Capillary Refill, Normal Inspection. absent : Joint Swelling, Pedal Edema - Back Exam Back Exam: NORMAL INSPECTION - Neurological Exam Neurological Exam: Alert, Awake, CN II-XII Intact, Normal Gait, Oriented x3 - Psychiatric Exam Psychiatric exam: Normal Affect, Normal Mood - Skin Skin Exam: Dry, Intact, Normal Color, Warm Assessment and Plan - Assessment and Plan (Free Text) Assessment: 82 F s/p Ex lap armando patch for duodenal perforation POD#5 -Soft diet -Analgesics/Anti-emetics PRN -IS/OOB/Ambulation -PT/OT -DVT/ GI ppx -Will Discuss with Dr. Haque <Roman Haque - Last Filed: 12/07/17 21:58> Objective - Vital Signs/Intake and Output Vital Signs (last 24 hours): Temp Pulse Resp BP Pulse Ox 98.5 F 68 20 169/77 H 96 12/07/17 15:15 12/07/17 15:15 12/07/17 15:15 12/07/17 15:15 12/07/17 15:15 Intake and Output: 12/07/17 12/08/17 18:59 06:59 Intake Total 1550 Output Total 50 Balance 1500 - Medications Medications: Current Medications Acetaminophen (Tylenol 325mg Tab) 650 mg PO Q4 PRN PRN Reason: fever/pain Docusate Sodium (Colace) 100 mg PO DAILY [facility] Last Admin: 12/07/17 14:15 Dose: 100 mg Enoxaparin Sodium (Lovenox) 30 mg SC DAILY [facility] Last Admin: 12/07/17 09:01 Dose: 30 mg BUPIVACAINE 0.125%/0.9% NACL (Bupivacaine-Ns 0.125% On-Q Engineering Technician Parking) 600 mls @ 4 mls/ hr IJ ONCE ONE Stop: 12/08/17 20:35 Last Admin: 12/02/17 17:25 Dose: 4 mls Fluconazole (Diflucan Iv 100 Mg/50 Ml Ns) 50 mls @ 100 mls/hr IVPB Q24H [facility] Last Admin: 12/07/17 18:45 Dose: 100 mls/hr Piperacillin Sod/Tazobactam Sod (Zosyn 2.25 Gm Iv Premix) 2.25 gm in 50 mls @ 100 mls/hr IVPB Q8H [facility] Last Admin: 12/07/17 20:43 Dose: 100 mls/hr Potassium Chloride 10 meq/ (Dextrose/Sodium Chloride) 1,005 mls @ 75 mls/hr IV .[id number] [facility] Last Admin: 12/07/17 06:39 Dose: 75 mls/hr Metronidazole 250 mg/ (Miscellaneous) 50 mls @ 100 mls/hr IVPB Q8 [facility] Losartan Potassium (Cozaar) 100 mg PO DAILY [facility] Last Admin: 12/07/17 09:01 Dose: 100 mg Metoprolol Succinate (Toprol Xl) 12.5 mg PO DAILY [facility] Last Admin: 12/07/17 14:15 Dose: 12.5 mg Ondansetron HCl (Zofran Inj) 4 mg IVP Q4 PRN PRN Reason: Nausea/Vomiting Last Admin: 12/07/17 04:14 Dose: 4 mg Oxycodone/Acetaminophen (Percocet 5/325 Mg Tab) 2 tab PO Q4H PRN PRN Reason: Pain, severe (8-10) Stop: 12/10/17 13:41 Pantoprazole Sodium (Protonix Ec Tab) 40 mg PO DAILY [facility] Potassium Chloride (Potassium Chloride Oral Soln) 20 meq PO DAILY [facility] Last Admin: 12/07/17 10:08 Dose: 20 meq - Labs Labs: 12/07/17 07:23 12/07/17 07:23 PT 13.1 SECONDS (9.7-12.2) H 12/02/17 07:36 INR 1.2 12/02/17 07:36 APTT 31 SECONDS (21-34) 12/02/17 07:36 Attending/Attestation - Attestation I have personally seen and examined this patient.: Yes I have fully participated in the care of the patient.: Yes I have reviewed all pertinent clinical information, including history, physical exam and plan: Yes Notes (Text): Pt was seen and examined at bedside Agree with above note and assessment Pt is improved Clinically Toletating diet Had Bowel movement IV antibiotics Plan d.w pt in detail
[2017-12-07] MEDS ORDERED: Oxycodone/Acetaminophen 5/325 mg Tab PO PRN (13:40)
[2017-12-07] MEDS ORDERED: Metoprolol Succinate 12.5 mg XL PO SCH (13:45)
--- NOTE | 2017-12-07 15:38 | CP.PCM.PN ---
Subjective - Date & Time of Evaluation Date of Evaluation: 12/07/17 Time of Evaluation: 15:35 - Subjective Subjective: S; Feels annel. BP elevated. No fever. Objective - Vital Signs/Intake and Output Vital Signs (last 24 hours): Temp Pulse Resp BP Pulse Ox 98.5 F 67 20 180/75 H 95 12/07/17 08:30 12/07/17 08:30 12/07/17 08:30 12/07/17 08:30 12/07/17 08:30 Intake and Output: 12/07/17 12/07/17 06:59 18:59 Intake Total 700 700 Output Total 30 30 Balance 670 670 - Medications Medications: Current Medications Acetaminophen (Tylenol 325mg Tab) 650 mg PO Q4 PRN PRN Reason: fever/pain Docusate Sodium (Colace) 100 mg PO DAILY [facility] Last Admin: 12/07/17 14:15 Dose: 100 mg Enoxaparin Sodium (Lovenox) 30 mg SC DAILY [facility] Last Admin: 12/07/17 09:01 Dose: 30 mg BUPIVACAINE 0.125%/0.9% NACL (Bupivacaine-Ns 0.125% On-Q [employer] Lpn) 600 mls @ 4 mls/ hr IJ ONCE ONE Stop: 12/08/17 20:35 Last Admin: 12/02/17 17:25 Dose: 4 mls Fluconazole (Diflucan Iv 100 Mg/50 Ml Ns) 50 mls @ 100 mls/hr IVPB Q24H [facility] Last Admin: 12/06/17 19:42 Dose: 100 mls/hr Piperacillin Sod/Tazobactam Sod (Zosyn 2.25 Gm Iv Premix) 2.25 gm in 50 mls @ 100 mls/hr IVPB Q8H [facility] Last Admin: 12/07/17 11:46 Dose: 100 mls/hr Potassium Chloride 10 meq/ (Dextrose/Sodium Chloride) 1,005 mls @ 75 mls/hr IV .[id number] [facility] Last Admin: 12/07/17 06:39 Dose: 75 mls/hr Metronidazole 250 mg/ (Miscellaneous) 50 mls @ 100 mls/hr IVPB Q8 [facility] Losartan Potassium (Cozaar) 100 mg PO DAILY [facility] Last Admin: 12/07/17 09:01 Dose: 100 mg Metoprolol Succinate (Toprol Xl) 12.5 mg PO DAILY [facility] Last Admin: 12/07/17 14:15 Dose: 12.5 mg Ondansetron HCl (Zofran Inj) 4 mg IVP Q4 PRN PRN Reason: Nausea/Vomiting Last Admin: 12/07/17 04:14 Dose: 4 mg Oxycodone/Acetaminophen (Percocet 5/325 Mg Tab) 2 tab PO Q4H PRN PRN Reason: Pain, severe (8-10) Stop: 12/10/17 13:41 Pantoprazole Sodium (Protonix Ec Tab) 40 mg PO DAILY [facility] Potassium Chloride (Potassium Chloride Oral Soln) 20 meq PO DAILY [facility] Last Admin: 12/07/17 10:08 Dose: 20 meq - Labs Labs: 12/07/17 07:23 12/07/17 07:23 PT 13.1 SECONDS (9.7-12.2) H 12/02/17 07:36 INR 1.2 12/02/17 07:36 APTT 31 SECONDS (21-34) 12/02/17 07:36 - Constitutional Appears: No Acute Distress - Head Exam Head Exam: NORMAL INSPECTION - Eye Exam Eye Exam: Normal appearance - ENT Exam ENT Exam: Normal Exam - Neck Exam Neck Exam: Normal Inspection - Respiratory Exam Respiratory Exam: NORMAL BREATHING PATTERN - Cardiovascular Exam Cardiovascular Exam: REGULAR RHYTHM - GI/Abdominal Exam GI & Abdominal Exam: Soft (operative dressing noted) - Rectal Exam Rectal Exam: Deferred - Extremities Exam Extremities Exam: absent: Pedal Edema - Neurological Exam Neurological Exam: Alert Assessment and Plan (1) Perforated abdominal viscus Status: Acute (2) HTN (hypertension) Status: Chronic - Assessment and Plan (Free Text) Assessment: A/P : Continue medications. Add Toprol for BP control
[2017-12-07] MEDS: Fluconazole IV 100mg/50 ml NS 50 ML IVPB SCH (18:45)
[2017-12-07] MEDS: metroNIDAZOLE IV 500 mg/100 ml 250 MG in Premixed IV 1 EA IVPB SCH (23:49)
[2017-12-08] MEDS: Piperacill/Tazo 2.25gm in Dex 2.25 GM/50 ML BAG IVPB SCH ×3 (03:12→20:55)
[2017-12-08] MEDS: metroNIDAZOLE IV 500 mg/100 ml 250 MG in Premixed IV 1 EA IVPB SCH ×3 (05:27→21:40)
[2017-12-08] MEDS ORDERED: Metoprolol Succinate 25 mg XL Tab PO SCH (08:23)
--- NOTE | 2017-12-08 08:27 | CP.PCM.PN ---
Subjective - Date & Time of Evaluation Date of Evaluation: 12/08/17 Time of Evaluation: 08:25 - Subjective Subjective: Surgery Pt s&e. NAEON. TOlerating diet. + BM. + void. Ambulate w help. Objective - Vital Signs/Intake and Output Vital Signs (last 24 hours): Temp Pulse Resp BP Pulse Ox 98.1 F 67 20 165/71 H 94 L 12/08/17 00:00 12/08/17 00:00 12/08/17 00:00 12/08/17 00:00 12/08/17 00:00 Intake and Output: 12/08/17 12/08/17 06:59 18:59 Intake Total 1530 Output Total 40 Balance 1490 - Medications Medications: Current Medications Acetaminophen (Tylenol 325mg Tab) 650 mg PO Q4 PRN PRN Reason: fever/pain Docusate Sodium (Colace) 100 mg PO DAILY [facility] Last Admin: 12/07/17 14:15 Dose: 100 mg Enoxaparin Sodium (Lovenox) 30 mg SC DAILY [facility] Last Admin: 12/07/17 09:01 Dose: 30 mg BUPIVACAINE 0.125%/0.9% NACL (Bupivacaine-Ns 0.125% On-Q Scada Technician) 600 mls @ 4 mls/ hr IJ ONCE ONE Stop: 12/08/17 20:35 Last Admin: 12/02/17 17:25 Dose: 4 mls Fluconazole (Diflucan Iv 100 Mg/50 Ml Ns) 50 mls @ 100 mls/hr IVPB Q24H [facility] Last Admin: 12/07/17 18:45 Dose: 100 mls/hr Piperacillin Sod/Tazobactam Sod (Zosyn 2.25 Gm Iv Premix) 2.25 gm in 50 mls @ 100 mls/hr IVPB Q8H [facility] Last Admin: 12/08/17 03:12 Dose: 100 mls/hr Potassium Chloride 10 meq/ (Dextrose/Sodium Chloride) 1,005 mls @ 75 mls/hr IV .[id number] [facility] Last Admin: 12/07/17 06:39 Dose: 75 mls/hr Metronidazole 250 mg/ (Miscellaneous) 50 mls @ 100 mls/hr IVPB Q8 [facility] Last Admin: 12/08/17 05:27 Dose: 100 mls/hr Losartan Potassium (Cozaar) 100 mg PO DAILY [facility] Last Admin: 12/07/17 09:01 Dose: 100 mg Metoprolol Succinate (Toprol Xl) 25 mg PO DAILY [facility] Ondansetron HCl (Zofran Inj) 4 mg IVP Q4 PRN PRN Reason: Nausea/Vomiting Last Admin: 12/07/17 04:14 Dose: 4 mg Oxycodone/Acetaminophen (Percocet 5/325 Mg Tab) 2 tab PO Q4H PRN PRN Reason: Pain, severe (8-10) Stop: 12/10/17 13:41 Pantoprazole Sodium (Protonix Ec Tab) 40 mg PO DAILY [facility] Potassium Chloride (Potassium Chloride Oral Soln) 20 meq PO DAILY [facility] Last Admin: 12/07/17 10:08 Dose: 20 meq - Labs Labs: 12/07/17 07:23 12/07/17 07:23 PT 13.1 SECONDS (9.7-12.2) H 12/02/17 07:36 INR 1.2 12/02/17 07:36 APTT 31 SECONDS (21-34) 12/02/17 07:36 - Constitutional Appears: No Acute Distress - Head Exam Head Exam: ATRAUMATIC, NORMAL INSPECTION, NORMOCEPHALIC - Eye Exam Eye Exam: EOMI, Normal appearance, PERRL Pupil Exam: NORMAL ACCOMODATION, PERRL - ENT Exam ENT Exam: Mucous Membranes Moist, Normal Exam - Neck Exam Neck Exam: Full ROM, Normal Inspection. absent: Lymphadenopathy - Respiratory Exam Respiratory Exam: Clear to Ausculation Bilateral, NORMAL BREATHING PATTERN - Cardiovascular Exam Cardiovascular Exam: REGULAR RHYTHM, +S1, +S2. absent: Murmur - GI/Abdominal Exam GI & Abdominal Exam: Soft, Normal Bowel Sounds. absent: Tenderness Additional comments: Incision C/D/I. Drain SS fluids. - Rectal Exam Rectal Exam: NORMAL INSPECTION - Extremities Exam Extremities Exam: Full ROM, Normal Capillary Refill, Normal Inspection. absent : Joint Swelling, Pedal Edema - Back Exam Back Exam: NORMAL INSPECTION - Neurological Exam Neurological Exam: Alert, Awake, CN II-XII Intact, Normal Gait, Oriented x3 - Psychiatric Exam Psychiatric exam: Normal Affect, Normal Mood - Skin Skin Exam: Dry, Intact, Normal Color, Warm Assessment and Plan - Assessment and Plan (Free Text) Assessment: 82 F s/p Ex lap armando patch for duodenal perforation POD#6 Drain 90cc/24hrs Replete electrolyte as needed ABX -Soft diet -Analgesics/Anti-emetics PRN -IS/OOB/Ambulation -PT/OT -DVT/ GI ppx -Will Discuss with Dr. Haque
[2017-12-08 08:40] LABS: BASO % 0.3 % (0.0-2.0); EOS # 0.3 K/uL (0.0-0.7); EOS % 3.1 % (0.0-4.0); HEMOGLOBIN 9.5 g/dL (11.0-16.0); LYMPH # 1.8 K/uL (1.0-4.3); LYMPH % 16.7 % (20.0-40.0); MEAN CORPUSCULAR HEMOGLOBIN 29.8 pg (27.0-31.0); MEAN CORPUSCULAR HGB CONC 34.2 g/dL (33.0-37.0); MEAN PLATELET VOLUME 8.9 fL (7.2-11.7); MONO # 1.2 K/uL (0.0-0.8); MONO % 11.1 % (0.0-10.0); NEUT # 7.3 K/uL (1.8-7.0); NEUT % 68.8 % (50.0-75.0); NRBC % 0.2 % (0.0-2.0); RBC 3.18 Mil/uL (3.80-5.20); RED CELL DISTRIBUTION WIDTH 14.3 % (11.5-14.5); WHITE BLOOD COUNT 10.6 K/uL (4.8-10.8)
[2017-12-08 08:59] LABS: ALBUMIN 2.2 g/dL (3.5-5.0); ALT/SGPT 31 U/L (9-52); AST/SGOT 30 U/L (14-36); BLOOD UREA NITROGEN 8 mg/dL (7-17); GFR AFRICAN-AMERICAN > 60; GFR NON-AFRICAN AMERICAN > 60
[2017-12-08 09:04] LABS: ALB/GLOB RATIO 0.9 (1.0-2.1)
[2017-12-08] MEDS: Potassium Chloride 10 MEQ in Dextrose 5%/0.9% NS 1,000 ML IV SCH ×2 (10:15→11:31)
[2017-12-08] MEDS: Pantoprazole 40 mg EC Tab PO SCH (10:24)
[2017-12-08] MEDS: Enoxaparin 30 mg Syringe SC SCH (10:24)
[2017-12-08] MEDS: Potassium Chloride 20 mEq/15 ml LIQ UD PO SCH (10:25)
--- NOTE | 2017-12-08 12:15 | CP.PCM.PN ---
Subjective - Date & Time of Evaluation Date of Evaluation: 12/08/17 Time of Evaluation: 12:13 - Subjective Subjective: S: Poor Appetite. No fever. BP elevated. Objective - Vital Signs/Intake and Output Vital Signs (last 24 hours): Temp Pulse Resp BP Pulse Ox 98.1 F 69 20 182/77 H 96 12/08/17 08:00 12/08/17 08:00 12/08/17 08:00 12/08/17 08:00 12/08/17 08:00 Intake and Output: 12/08/17 12/08/17 06:59 18:59 Intake Total 1530 Output Total 40 Balance 1490 - Medications Medications: Current Medications Acetaminophen (Tylenol 325mg Tab) 650 mg PO Q4 PRN PRN Reason: fever/pain Amlodipine Besylate (Norvasc) 5 mg PO DAILY [facility] Docusate Sodium (Colace) 100 mg PO DAILY [facility] Last Admin: 12/08/17 10:24 Dose: 100 mg Enoxaparin Sodium (Lovenox) 30 mg SC DAILY [facility] Last Admin: 12/08/17 10:24 Dose: 30 mg BUPIVACAINE 0.125%/0.9% NACL (Bupivacaine-Ns 0.125% On-Q Huller Operator) 600 mls @ 4 mls/ hr IJ ONCE ONE Stop: 12/08/17 20:35 Last Admin: 12/02/17 17:25 Dose: 4 mls Fluconazole (Diflucan Iv 100 Mg/50 Ml Ns) 50 mls @ 100 mls/hr IVPB Q24H [facility] Last Admin: 12/07/17 18:45 Dose: 100 mls/hr Piperacillin Sod/Tazobactam Sod (Zosyn 2.25 Gm Iv Premix) 2.25 gm in 50 mls @ 100 mls/hr IVPB Q8H [facility] Last Admin: 12/08/17 11:32 Dose: 100 mls/hr Potassium Chloride 10 meq/ (Dextrose/Sodium Chloride) 1,005 mls @ 75 mls/hr IV .[id number] [facility] Last Admin: 12/08/17 11:31 Dose: 75 mls/hr Metronidazole 250 mg/ (Miscellaneous) 50 mls @ 100 mls/hr IVPB Q8 [facility] Last Admin: 12/08/17 05:27 Dose: 100 mls/hr Losartan Potassium (Cozaar) 100 mg PO DAILY [facility] Last Admin: 12/08/17 10:24 Dose: 100 mg Ondansetron HCl (Zofran Inj) 4 mg IVP Q4 PRN PRN Reason: Nausea/Vomiting Last Admin: 12/07/17 04:14 Dose: 4 mg Oxycodone/Acetaminophen (Percocet 5/325 Mg Tab) 2 tab PO Q4H PRN PRN Reason: Pain, severe (8-10) Stop: 12/10/17 13:41 Pantoprazole Sodium (Protonix Ec Tab) 40 mg PO DAILY [facility] Last Admin: 12/08/17 10:24 Dose: 40 mg Potassium Chloride (Potassium Chloride Oral Soln) 20 meq PO DAILY [facility] Last Admin: 12/08/17 10:25 Dose: 20 meq - Labs Labs: 12/08/17 08:19 12/08/17 08:19 PT 13.1 SECONDS (9.7-12.2) H 12/02/17 07:36 INR 1.2 12/02/17 07:36 APTT 31 SECONDS (21-34) 12/02/17 07:36 - Constitutional Appears: No Acute Distress - Head Exam Head Exam: NORMAL INSPECTION - Eye Exam Eye Exam: Normal appearance - Neck Exam Neck Exam: Normal Inspection - Respiratory Exam Respiratory Exam: NORMAL BREATHING PATTERN - Cardiovascular Exam Cardiovascular Exam: REGULAR RHYTHM - GI/Abdominal Exam GI & Abdominal Exam: Soft - Rectal Exam Rectal Exam: Deferred - Extremities Exam Extremities Exam: absent: Pedal Edema Assessment and Plan (1) Perforated abdominal viscus Status: Acute (2) HTN (hypertension) Status: Chronic - Assessment and Plan (Free Text) Assessment: A: Adjust BP medications. Continie treatment
[2017-12-08] MEDS: Fluconazole IV 100mg/50 ml NS 50 ML IVPB SCH (19:38)
[2017-12-09] MEDS ORDERED: Magnesium Oxide 400 mg Tab UD PO SCH ×2 (01:30→10:00)
[2017-12-09] MEDS: Piperacill/Tazo 2.25gm in Dex 2.25 GM/50 ML BAG IVPB SCH ×2 (03:54→13:00)
[2017-12-09] MEDS: metroNIDAZOLE IV 500 mg/100 ml 250 MG in Premixed IV 1 EA IVPB SCH ×2 (05:27→14:15)
--- NOTE | 2017-12-09 07:52 | CP.PCM.PN ---
Subjective - Date & Time of Evaluation Date of Evaluation: 12/09/17 Time of Evaluation: 07:00 - Subjective Subjective: General Surgery Note for Dr. Haque Patient seen and examined at bedside. No acute event overnight. Patient is s/p ex lap with armando patch for perforated duodenal ulcer POD#7. She is denying any pain. Patient is tolerating diet and having normal BMs. Patient has no complaints. Drain and every other staple removed today. Patient clear for discharge from surgery standpoint. Objective - Vital Signs/Intake and Output Vital Signs (last 24 hours): Temp Pulse Resp BP Pulse Ox 98.5 F 66 20 149/67 96 12/09/17 07:49 12/09/17 07:49 12/09/17 07:49 12/09/17 07:49 12/09/17 07:49 Intake and Output: 12/09/17 12/09/17 06:59 18:59 Intake Total 1170 Output Total 50 Balance 1120 - Medications Medications: Current Medications Acetaminophen (Tylenol 325mg Tab) 650 mg PO Q4 PRN PRN Reason: fever/pain Amlodipine Besylate (Norvasc) 5 mg PO DAILY [facility] Last Admin: 12/08/17 12:23 Dose: 5 mg Docusate Sodium (Colace) 100 mg PO DAILY [facility] Last Admin: 12/08/17 10:24 Dose: 100 mg Enoxaparin Sodium (Lovenox) 30 mg SC DAILY [facility] Last Admin: 12/08/17 10:24 Dose: 30 mg Piperacillin Sod/Tazobactam Sod (Zosyn 2.25 Gm Iv Premix) 2.25 gm in 50 mls @ 100 mls/hr IVPB Q8H [facility] Last Admin: 12/09/17 03:54 Dose: 100 mls/hr Metronidazole 250 mg/ (Miscellaneous) 50 mls @ 100 mls/hr IVPB Q8 [facility] Last Admin: 12/09/17 05:27 Dose: 100 mls/hr Losartan Potassium (Cozaar) 100 mg PO DAILY [facility] Last Admin: 12/08/17 10:24 Dose: 100 mg Magnesium Oxide (Mag-Ox) 400 mg PO BID [facility] Last Admin: 12/09/17 01:45 Dose: 400 mg Ondansetron HCl (Zofran Inj) 4 mg IVP Q4 PRN PRN Reason: Nausea/Vomiting Last Admin: 12/07/17 04:14 Dose: 4 mg Oxycodone/Acetaminophen (Percocet 5/325 Mg Tab) 2 tab PO Q4H PRN PRN Reason: Pain, severe (8-10) Stop: 12/10/17 13:41 Pantoprazole Sodium (Protonix Ec Tab) 40 mg PO DAILY [facility] Last Admin: 12/08/17 10:24 Dose: 40 mg Potassium Chloride (Potassium Chloride Oral Soln) 20 meq PO DAILY [facility] Last Admin: 12/08/17 10:25 Dose: 20 meq - Labs Labs: 12/08/17 08:19 12/08/17 08:19 PT 13.1 SECONDS (9.7-12.2) H 12/02/17 07:36 INR 1.2 12/02/17 07:36 APTT 31 SECONDS (21-34) 12/02/17 07:36 - Constitutional Appears: No Acute Distress - Head Exam Head Exam: ATRAUMATIC, NORMOCEPHALIC - Eye Exam Eye Exam: EOMI, Normal appearance - ENT Exam ENT Exam: Mucous Membranes Moist - Respiratory Exam Respiratory Exam: NORMAL BREATHING PATTERN - Cardiovascular Exam Cardiovascular Exam: REGULAR RHYTHM - GI/Abdominal Exam GI & Abdominal Exam: Soft, Normal Bowel Sounds. absent: Distended, Firm, Guarding, Rigid, Tenderness, Rebound Additional comments: midline scar clean dry and intact drain removed and every other staple - Extremities Exam Extremities Exam: Normal Capillary Refill - Neurological Exam Neurological Exam: Alert, Awake, Oriented x3 - Psychiatric Exam Psychiatric exam: Normal Affect, Normal Mood - Skin Skin Exam: Dry, Intact, Normal Color, Warm Assessment and Plan - Assessment and Plan (Free Text) Plan: 82 F s/p ex lap with armando patch for duodenal perforation POD#7 -Patient clear for discharge from surgical standpoint -Follow up as outpatient with Dr. Haque in 1 week -Patient to refrain from heavy lifting for 4-6 weeks -Patient may shower but keep area clean and dry -Discussed with Dr. Garland Puentes PGY1
[2017-12-09] MEDS ORDERED: Magnesium Sulfate 1 gm in D5W 1 GM/100 ML BAG IVPB ONE (08:26)
--- NOTE | 2017-12-09 08:59 | CP.PCM.PN ---
Subjective - Date & Time of Evaluation Date of Evaluation: 12/09/17 Time of Evaluation: 08:15 - Subjective Subjective: Pt (+) poor appetite but finish > 50 % of her tray. No CP, no SOB, no edema,no cough, no n/v Objective - Vital Signs/Intake and Output Vital Signs (last 24 hours): Temp Pulse Resp BP Pulse Ox 98.5 F 66 20 149/67 96 12/09/17 07:49 12/09/17 07:49 12/09/17 07:49 12/09/17 07:49 12/09/17 07:49 Intake and Output: 12/09/17 12/09/17 06:59 18:59 Intake Total 1170 Output Total 50 Balance 1120 - Medications Medications: Current Medications Acetaminophen (Tylenol 325mg Tab) 650 mg PO Q4 PRN PRN Reason: fever/pain Amlodipine Besylate (Norvasc) 5 mg PO DAILY [facility] Last Admin: 12/08/17 12:23 Dose: 5 mg Docusate Sodium (Colace) 100 mg PO DAILY [facility] Last Admin: 12/08/17 10:24 Dose: 100 mg Enoxaparin Sodium (Lovenox) 30 mg SC DAILY [facility] Last Admin: 12/08/17 10:24 Dose: 30 mg Piperacillin Sod/Tazobactam Sod (Zosyn 2.25 Gm Iv Premix) 2.25 gm in 50 mls @ 100 mls/hr IVPB Q8H [facility] Last Admin: 12/09/17 03:54 Dose: 100 mls/hr Metronidazole 250 mg/ (Miscellaneous) 50 mls @ 100 mls/hr IVPB Q8 [facility] Last Admin: 12/09/17 05:27 Dose: 100 mls/hr Losartan Potassium (Cozaar) 100 mg PO DAILY [facility] Last Admin: 12/08/17 10:24 Dose: 100 mg Ondansetron HCl (Zofran Inj) 4 mg IVP Q4 PRN PRN Reason: Nausea/Vomiting Last Admin: 12/07/17 04:14 Dose: 4 mg Oxycodone/Acetaminophen (Percocet 5/325 Mg Tab) 2 tab PO Q4H PRN PRN Reason: Pain, severe (8-10) Stop: 12/10/17 13:41 Pantoprazole Sodium (Protonix Ec Tab) 40 mg PO DAILY [facility] Last Admin: 12/08/17 10:24 Dose: 40 mg Potassium Chloride (Potassium Chloride Oral Soln) 20 meq PO DAILY [facility] Last Admin: 12/08/17 10:25 Dose: 20 meq - Labs Labs: 12/08/17 08:19 12/08/17 08:19 PT 13.1 SECONDS (9.7-12.2) H 12/02/17 07:36 INR 1.2 12/02/17 07:36 APTT 31 SECONDS (21-34) 12/02/17 07:36 - Constitutional Appears: No Acute Distress - Eye Exam Eye Exam: Normal appearance. absent: Periorbital swelling ((+) pale) - ENT Exam ENT Exam: Mucous Membranes Moist - Neck Exam Neck Exam: Full ROM. absent: Lymphadenopathy - Respiratory Exam Respiratory Exam: Decreased Breath Sounds. absent: Rales, Rhonchi, Wheezes - Cardiovascular Exam Cardiovascular Exam: +S1, +S2, Murmur. absent: Gallop, REGULAR RHYTHM, JVD - GI/Abdominal Exam GI & Abdominal Exam: Soft, Hypoactive Bowel Sounds. absent: Tenderness - Extremities Exam Extremities Exam: Full ROM. absent: Calf Tenderness, Joint Swelling Assessment and Plan - Assessment and Plan (Free Text) Assessment: s/p repair of perforated Ulcer Hypokalemia/ Hypomagnesimia HTN; Gen debility Mg/ k supplement Cont care Doing PT but still need alot of help ambulating
[2017-12-09] MEDS: Enoxaparin 30 mg Syringe SC SCH (09:24)
[2017-12-09] MEDS: Potassium Chloride 20 mEq/15 ml LIQ UD PO SCH (09:24)
[2017-12-09] MEDS: Pantoprazole 40 mg EC Tab PO SCH (09:24)
[2017-12-09 14:57] LABS: BLOOD UREA NITROGEN 7 mg/dL (7-17); GFR AFRICAN-AMERICAN > 60; GFR NON-AFRICAN AMERICAN > 60
[2017-12-09] MEDS ORDERED: Potassium Chloride 20 mEq/15 ml LIQ UD PO ONE (15:15)
[2017-12-09 15:43] VITALS: BP 145/66; PULSE 72; TEMP 98.8; O2SAT 95
[2017-12-09] MEDS ORDERED: Influenza Vaccine 60 mcg/0.5 mL SYR (4YR UP) IM ONE (16:30)
--- NOTE | 2017-12-09 16:43 | CP.PCM.PN ---
Subjective - Date & Time of Evaluation Date of Evaluation: 12/09/17 Time of Evaluation: 11:00 - Subjective Subjective: Awake, alert, no sob or chest pains. Objective - Vital Signs/Intake and Output Vital Signs (last 24 hours): Temp Pulse Resp BP Pulse Ox 98.8 F 72 20 145/66 95 12/09/17 15:00 12/09/17 15:00 12/09/17 15:00 12/09/17 15:00 12/09/17 15:00 Intake and Output: 12/09/17 12/09/17 06:59 18:59 Intake Total 1170 500 Output Total 50 Balance 1120 500 - Medications Medications: Current Medications Acetaminophen (Tylenol 325mg Tab) 650 mg PO Q4 PRN PRN Reason: fever/pain Amlodipine Besylate (Norvasc) 5 mg PO DAILY [facility] Last Admin: 12/09/17 09:24 Dose: 5 mg Docusate Sodium (Colace) 100 mg PO DAILY [facility] Last Admin: 12/09/17 09:23 Dose: 100 mg Enoxaparin Sodium (Lovenox) 30 mg SC DAILY [facility] Last Admin: 12/09/17 09:24 Dose: 30 mg Piperacillin Sod/Tazobactam Sod (Zosyn 2.25 Gm Iv Premix) 2.25 gm in 50 mls @ 100 mls/hr IVPB Q8H [facility] Last Admin: 12/09/17 13:00 Dose: 100 mls/hr Metronidazole 250 mg/ (Miscellaneous) 50 mls @ 100 mls/hr IVPB Q8 [facility] Last Admin: 12/09/17 14:15 Dose: 100 mls/hr Losartan Potassium (Cozaar) 100 mg PO DAILY [facility] Last Admin: 12/09/17 09:24 Dose: 100 mg Ondansetron HCl (Zofran Inj) 4 mg IVP Q4 PRN PRN Reason: Nausea/Vomiting Last Admin: 12/07/17 04:14 Dose: 4 mg Oxycodone/Acetaminophen (Percocet 5/325 Mg Tab) 2 tab PO Q4H PRN PRN Reason: Pain, severe (8-10) Stop: 12/10/17 13:41 Pantoprazole Sodium (Protonix Ec Tab) 40 mg PO DAILY [facility] Last Admin: 12/09/17 09:24 Dose: 40 mg Potassium Chloride (Potassium Chloride Oral Soln) 20 meq PO DAILY [facility] Last Admin: 12/09/17 09:24 Dose: 20 meq - Labs Labs: 12/08/17 08:19 12/09/17 14:22 PT 13.1 SECONDS (9.7-12.2) H 12/02/17 07:36 INR 1.2 12/02/17 07:36 APTT 31 SECONDS (21-34) 12/02/17 07:36 Assessment and Plan - Assessment and Plan (Free Text) Assessment: Patient is seen and examined. Alert, awake, ambulates with assistance. Cleared by surgery to be discharged home without antibiotics. To f/u with surgery as advised in 1 week no heavy lifting for 6-8 weeks may shower but keep the surgical area dry and clean. Discussed with DR Malloy. Advised to follow up with DR Malloy on Saturday. Home physical therapy is arranged, patient refused rehab placement.
== END 2017-12-09 17:42 | disposition home or self-care (01) | DRG 329 ==
LOC: C.ER 02:06 → C.3T 05:50
PROVIDERS: ADMIT Internal Medicine; ATTEND Internal Medicine
PROC: 0DU907Z Supplement Duodenum with Autologous Tissue Substitute, Open Approach (ICD-10-PCS; 2017-12-02)
PROC: 0W9G0ZX Drainage of Peritoneal Cavity, Open Approach, Diagnostic (ICD-10-PCS; 2017-12-02)
PROC: 0DNW0ZZ Release Peritoneum, Open Approach (ICD-10-PCS; principal; 2017-12-02 07:30)
DX: K26.5 Chronic or unspecified duodenal ulcer with perforation (principal); K65.1 Peritoneal abscess; Z68.1 Body mass index [BMI] 19.9 or less, adult; K25.5 Chronic or unspecified gastric ulcer with perforation; K66.0 Peritoneal adhesions (postprocedural) (postinfection); I10 Essential (primary) hypertension; E87.6 Hypokalemia; E83.42 Hypomagnesemia

== ENCOUNTER 2017-12-20 17:22 | Inpatient (IN) | payer MEDICARE ==
[2017-12-20 17:41] VITALS: BMI 19.1
[2017-12-20] MEDS ORDERED: Sodium Chloride 0.9% 500 ML IV ONE ×2 (18:28→18:59)
--- NOTE | 2017-12-20 18:31 | C.PDOC ---
History Of Present Illness 82 y/o female presents to the ER complaining of vomiting which has been present since yesterday. Patient states that she vomited 2 times today. Patient also states that she has abdominal pain. She had normal BM in the morning today. She denies having diarrhea. Of note, patient was seen in the ER in November 2017 for abdominal pain which has been present since September 2017. She was found to have a perforated gastric ulcer and prescribed Antacids. She also underwent surgery for her perforation. Chief Complaint (Nursing): GI Problem History Per: Patient History/Exam Limitations: no limitations Onset/Duration Of Symptoms: Days Current Symptoms Are (Timing): Still Present Severity: Moderate Past Medical History Reviewed: Historical Data, Nursing Documentation, Vital Signs Vital Signs: Last Vital Signs Temp 98.4 F 12/20/17 17:39 Pulse 70 12/20/17 23:38 Resp 16 12/20/17 23:38 BP 181/75 H 12/20/17 23:38 Pulse Ox 98 12/21/17 00:07 - Medical History PMH: Arthritis, HTN Other Surgeries: Abdominal Surgery - [facility] Procedures DRAINAGE OF PERITONEAL CAVITY, OPEN APPROACH, DIAGNOSTIC (12/02/17) RELEASE PERITONEUM, OPEN APPROACH (12/02/17) SUPPLEMENT DUODENUM WITH AUTOL SUB, OPEN APPROACH (12/02/17) Family History: States: No Known Family Hx - Social History Hx Alcohol Use: No Hx Substance Use: No - Immunization History Hx Tetanus Toxoid Vaccination: No Hx Influenza Vaccination: No Hx Pneumococcal Vaccination: No Review Of Systems Except As Marked, All Systems Reviewed And Found Negative. Gastrointestinal: Positive for: Vomiting, Abdominal Pain. Negative for: Diarrhea Physical Exam - Physical Exam Appears: Non-toxic, No Acute Distress Skin: Normal Color, Warm Head: Atraumatic, Normacephalic Eye(s): bilateral: Normal Inspection Nose: Normal Oral Mucosa: Moist Neck: Supple Chest: Symmetrical Cardiovascular: Rhythm Regular Respiratory: Normal Breath Sounds, No Accessory Muscle Use, No Rales, No Rhonchi , No Wheezing Gastrointestinal/Abdominal: Normal Exam, Soft, Tenderness (mild subjective epigastric tenderness), Other (well-healing laparoscopic scar) Neurological/Psych: Oriented x3, Normal Speech, Normal Motor, Normal Sensation ED Course And Treatment - Laboratory Results Result Diagrams: 12/20/17 19:29 12/20/17 19:29 ECG: Interpreted By Me ECG Rhythm: Sinus Rhythm ECG Interpretation: Normal, No Acute Changes O2 Sat by Pulse Oximetry: 98 (RA) Pulse Ox Interpretation: Normal - CT Scan/US CT abdo/pelvis Other Rad Studies (CT/US): Read By Radiologist, Radiology Report Reviewed CT/US Interpretation: EXAM: CT Abdomen and Pelvis With Intravenous Contrast. EXAM DATE/TIME: 12/20/2017 6:30 PM. CLINICAL HISTORY: 82 years old, female; Pain; Abdominal pain; Additional info: Abd pain. TECHNIQUE: Axial computed tomography images of the abdomen and pelvis with intravenous contrast. All CT. scans at this facility use one or more dose reduction techniques, viz.: automated exposure control;. ma/kV adjustment per patient size (including targeted exams where dose is matched to indication; i.e. head); or iterative reconstruction technique. Coronal and sagittal reformatted images were created and reviewed. CONTRAST: 100 mL of [id number] administered intravenously. COMPARISON: Prior CT abdomen and pelvis of 2017-12-02. FINDINGS: LIMITATIONS : Mild streak/motion artifact. LOWER THORAX: Heart appears mildly enlarged. ABDOMEN:larger of these measures 1.3 cm. GALLBLADDER AND BILE DUCTS: Fluid is seen adjacent to the gallbladder. This is most likely. related to the generalized right abdominal free fluid rather than representing pericholecystic fluid. secondary to acute cholecystitis. Small gallstone is seen. No evidence of diffuse pericholecystic. inflammation. Recommend clinical correlation. PANCREAS: No CT evidence of acute pancreatitis. SPLEEN: No acute abnormality of the spleen identified. ADRENALS: No acute abnormality of the adrenal glands identified. KIDNEYS AND URETERS: Low density lesions in the kidneys bilaterally , most likely representing. cysts. The largest of these is exophytic, abutting the right kidney medially, and measures 2.4 cm. STOMACH AND BOWEL: Marked wall thickening of the mid and distal stomach. Findings. compatible with a large gastric ulceration, involving the lesser curvature of the stomach and projecting. superiorly. This measures 3 cm. There were similar findings on the prior CT. Retained stool noted. throughout the colon. Otherwise, no significant abnormality of the bowel is identified. No evidence of. diffuse gastric dilatation. No evidence of small bowel obstruction. APPENDIX: Appendix is seen, and is within normal limits in appearance. PELVIS: BLADDER: Small bladder diverticulum. Findings could be secondary to chronic bladder outlet. obstruction. Recommend clinical correlation. REPRODUCTIVE: No acute abnormality of the reproductive organs is seen. ABDOMEN and PELVIS: INTRAPERITONEAL SPACE: Abnormal, diffuse stranding of the right abdominal fat is seen, as well. as peritoneal thickening, suspicious for inflammation. There is also a small amount of free fluid in the. right abdomen. Findings abut the thick-walled stomach and the gastric ulceration, and are highlysuspicious for an inflamed gastric ulcer. No evidence of free/extraluminal air. No evidence of abscess. formation. BONES/JOINTS: No acute fractures or other acute bony abnormality noted. SOFT TISSUES: Diffuse stranding of the subcutaneous fat in the midline anterior abdominal wall. This could represent residual postoperative edema versus chronic scarring, related to a midline. surgical incision. Recommend correlation with the timing of any prior abdominal surgery. VASCULATURE: No evidence of abdominal aortic aneurysm. No evidence of periaortic. hemorrhage. LYMPH NODES: No evidence of diffuse lymphadenopathy. IMPRESSION: - Findings highly suspicious for large 3 cm inflamed gastric ulcer , associated with marked. gastric wall thickening. There is nearby diffuse fat stranding/inflammation and fluid in the right. abdomen. No free air seen to suggest a surya gastric perforation. - See above for remaining findings. Medical Decision Making Medical Decision Making: Plan: --CT-Abd.& Pelv. --Labs Disposition - Disposition Disposition: HOSPITALIZED Disposition Time: 00:40 Condition: STABLE Forms: [facility] (Sami) - POA Present On Arrival: None - Clinical Impression Clinical Impression: Gastric outlet obstruction, Peptic ulcer - Scribe Statement The provider has reviewed the documentation as recorded by the Nohemy Norton Provider Attestation: All medical record entries made by the Nohemy were at my direction and personally dictated by me. I have reviewed the chart and agree that the record accurately reflects my personal performance of the history, physical exam, medical decision making, and the department course for this patient. I have also personally directed, reviewed, and agree with the discharge instructions and disposition.
[2017-12-20] MEDS ORDERED: Morphine 4 MG/ML VIAL ONE (18:59)
[2017-12-20 19:33] LABS: BASO # 0.1 K/uL (0.0-0.2); BASO % 0.6 % (0.0-2.0); EOS # 0.1 K/uL (0.0-0.7); EOS % 0.7 % (0.0-4.0); HEMOGLOBIN 9.5 g/dL (11.0-16.0); LYMPH # 1.3 K/uL (1.0-4.3); LYMPH % 14.4 % (20.0-40.0); MEAN CELL VOLUME 81.3 fL (81.0-99.0); MEAN CORPUSCULAR HEMOGLOBIN 27.7 pg (27.0-31.0); MEAN CORPUSCULAR HGB CONC 34.1 g/dL (33.0-37.0); MEAN PLATELET VOLUME 7.3 fL (7.2-11.7); MONO # 0.9 K/uL (0.0-0.8); MONO % 9.2 % (0.0-10.0); NEUT % 75.1 % (50.0-75.0); RBC 3.44 Mil/uL (3.80-5.20); RED CELL DISTRIBUTION WIDTH 14.8 % (11.5-14.5); WHITE BLOOD COUNT 9.3 K/uL (4.8-10.8)
[2017-12-20 19:37] LABS: SQUAMOUS EPITHIAL 6 /hpf (0-5); URINE BILIRUBIN NEGATIVE (NEGATIVE); URINE BLOOD NEGATIVE (NEGATIVE); URINE CLARITY Hazy (Clear); URINE COLOR Yellow (YELLOW); URINE GLUCOSE (UA) NORMAL (Normal); URINE HYALINE CAST 0-2 /lpf (0-2); URINE LEUKOCYTE ESTERASE NEG Leu/uL (Negative); URINE NITRATE NEGATIVE (NEGATIVE); URINE PROTEIN 2+ mg/dL (NEGATIVE)
[2017-12-20 19:46] LABS: ALB/GLOB RATIO 0.8 (1.0-2.1); ALBUMIN 3.2 g/dL (3.5-5.0); ALT/SGPT 24 U/L (9-52); AST/SGOT 17 U/L (14-36); BLOOD UREA NITROGEN 16 mg/dL (7-17); GFR AFRICAN-AMERICAN > 60; GFR NON-AFRICAN AMERICAN > 60; LIPASE 376 U/L (23-300)
[2017-12-20] MEDS ORDERED: Iodixanol 320 MG/ML 100 ML BOTTLE IV ONE (22:11)
--- NOTE | 2017-12-21 00:05 | CT ---
EXAM: CT Abdomen and Pelvis With Intravenous Contrast EXAM DATE/TIME: 12/20/2017 6:30 PM CLINICAL HISTORY: 82 years old, female; Pain; Abdominal pain; Additional info: Abd pain TECHNIQUE: Axial computed tomography images of the abdomen and pelvis with intravenous contrast. All CT scans at this facility use one or more dose reduction techniques, viz.: automated exposure control; ma/kV adjustment per patient size (including targeted exams where dose is matched to indication; i.e. head); or iterative reconstruction technique. Coronal and sagittal reformatted images were created and reviewed. CONTRAST: 100 mL of [id number] administered intravenously. COMPARISON: Prior CT abdomen and pelvis of 2017-12-02 FINDINGS: LIMITATIONS: Mild streak/motion artifact. LOWER THORAX: Heart appears mildly enlarged. ABDOMEN: LIVER: Stable appearance of 2 small low density liver lesions, most likely representing cysts. The larger of these measures 1.3 cm. GALLBLADDER AND BILE DUCTS: Fluid is seen adjacent to the gallbladder. This is most likely related to the generalized right abdominal free fluid rather than representing pericholecystic fluid secondary to acute cholecystitis. Small gallstone is seen. No evidence of diffuse pericholecystic inflammation. Recommend clinical correlation. PANCREAS: No CT evidence of acute pancreatitis. SPLEEN: No acute abnormality of the spleen identified. ADRENALS: No acute abnormality of the adrenal glands identified. KIDNEYS AND URETERS: Low density lesions in the kidneys bilaterally, most likely representing cysts. The largest of these is exophytic, abutting the right kidney medially, and measures 2.4 cm. STOMACH AND BOWEL: Marked wall thickening of the mid and distal stomach. Findings compatible with a large gastric ulceration, involving the lesser curvature of the stomach and projecting superiorly. This measures 3 cm. There were similar findings on the prior CT. Retained stool noted throughout the colon. Otherwise, no significant abnormality of the bowel is identified. No evidence of diffuse gastric dilatation. No evidence of small bowel obstruction. APPENDIX: Appendix is seen, and is within normal limits in appearance. PELVIS: BLADDER: Small bladder diverticulum. Findings could be secondary to chronic bladder outlet obstruction. Recommend clinical correlation. REPRODUCTIVE: No acute abnormality of the reproductive organs is seen. ABDOMEN and PELVIS: INTRAPERITONEAL SPACE: Abnormal, diffuse stranding of the right abdominal fat is seen, as well as peritoneal thickening, suspicious for inflammation. There is also a small amount of free fluid in the right abdomen. Findings abut the thick-walled stomach and the gastric ulceration, and are highly suspicious for an inflamed gastric ulcer. No evidence of free/extraluminal air. No evidence of abscess formation. BONES/JOINTS: No acute fractures or other acute bony abnormality noted. SOFT TISSUES: Diffuse stranding of the subcutaneous fat in the midline anterior abdominal wall. This could represent residual postoperative edema versus chronic scarring, related to a midline surgical incision. Recommend correlation with the timing of any prior abdominal surgery. VASCULATURE: No evidence of abdominal aortic aneurysm. No evidence of periaortic hemorrhage. LYMPH NODES: No evidence of diffuse lymphadenopathy. IMPRESSION: - Findings highly suspicious for large 3 cm inflamed gastric ulcer, associated with marked gastric wall thickening. There is nearby diffuse fat stranding/inflammation and fluid in the right abdomen. No free air seen to suggest a surya gastric perforation. - See above for remaining findings.
[2017-12-21] MEDS ORDERED: Pantoprazole 80 MG in Sodium Chloride 0.9% 100 ML IVP SCH (00:45)
[2017-12-21] MEDS ORDERED: Lactated Ringer's 1,000 ML IV SCH (01:45)
--- NOTE | 2017-12-21 01:45 | CP.PCM.CON ---
<Ava Luu - Last Filed: 12/21/17 01:43> History of Present Illness - History of Present Illness History of Present Illness: General surgery consult note for Dr. Haque-Ava Luu, PGY-1 Pt S & E at bedside. 82F w/PMH sig for perforated Duodenal ulcer s/p repair with Joselito patch in November 2017 consulted for abdominal pain. Pt reports abdominal pain since surgery, intermittent, over lower quadrants, non radiating. No alleviating or aggravating factors identified. Pt seen recently in Dr. Haque's office for superficial skin infection - prescribed Levofloxacin- pt states she has taken 2 days of medication. Admits to intolerance to PO intake that started 2 days [employer], nausea, emesis (nb, food stuff ), BM (normal caliber on AM of day of admission), flatus. Denies F & C, constipation, diarrhea, hematemesis, hematuria, other complaints. In ED CT abdomen w/Findings highly suspicious for large 3 cm inflamed gastric ulcer, associated with marked gastric wall thickening. There is nearby diffuse fat stranding/inflammation and fluid in the right abdomen. No free air seen to suggest a surya gastric perforation. No leukocytosis, afebrile. PMH: HTN, perforated duodenal ulcer PSH: hysterectomy, ex-lap with duodenal ulcer repair w/Joselito patch & wash out ( 11/2017) All: NKDA SH: Denies tobacco, ETOH or illicit drug use Surgeon: Dr. Haque Past Patient History - Infectious Disease Hx of Infectious Diseases: None - Past Medical History & Family History Past Medical History?: Yes - Past Social History Smoking Status: Never Smoked - CARDIAC Hx Hypertension: Yes - PULMONARY Hx Respiratory Disorders: No - NEUROLOGICAL Hx Neurological Disorder: No - HEENT Hx Cataracts: Yes (cataractas surgery 1979) - HEMATOLOGICAL/ONCOLOGICAL Hx Blood Disorders: No - INTEGUMENTARY Hx Dermatological Problems: No - MUSCULOSKELETAL/RHEUMATOLOGICAL Hx Arthritis: Yes - GASTROINTESTINAL Other/Comment: ABDOMINAL PAIN - GENITOURINARY/GYNECOLOGICAL Hx Genitourinary Disorders: No - PSYCHIATRIC Hx Substance Use: No - SURGICAL HISTORY Other/Comment: MYomectomy - ANESTHESIA Hx Anesthesia: Yes Hx Anesthesia Reactions: No Meds Allergies/Adverse Reactions: Allergies Allergy/AdvReac Type Severity Reaction Status Date / Time No Known Allergies Allergy Verified 12/20/17 17:37 - Medications Medications: Current Medications Pantoprazole Sodium 80 mg/ (Sodium Chloride) 100 mls @ 10 mls/hr IVP .Q10H [facility] PRN Reason: 8 MG/HR Cefazolin Sodium 500 mg/ (Sodium Chloride) 50 mls @ 100 mls/hr IVPB Q8H [facility] Lactated Ringer's (Lactated Ringer's) 1,000 mls @ 100 mls/hr IV .Q10H [facility] Morphine Sulfate (Morphine) 2 mg IVP Q4 PRN PRN Reason: Pain, moderate (4-7) Physical Exam - Constitutional Appears: Non-toxic, No Acute Distress - Head Exam Head Exam: ATRAUMATIC, NORMAL INSPECTION, NORMOCEPHALIC - Eye Exam Eye Exam: EOMI, Normal appearance - ENT Exam ENT Exam: Mucous Membranes Moist, Normal Exam - Neck Exam Neck exam: Positive for: Full Rom, Normal Inspection - Respiratory Exam Respiratory Exam: Clear to Auscultation Bilateral, NORMAL BREATHING PATTERN. absent: Rales, Rhonchi, Wheezes, Respiratory Distress - Cardiovascular Exam Cardiovascular Exam: REGULAR RHYTHM, +S1, +S2 - GI/Abdominal Exam GI & Abdominal Exam: Hypoactive Bowel Sounds, Soft, Tenderness (over lower quadrants, minimally). absent: Distended, Firm, Guarding, Rebound, Rigid Additional comments: Midline incision with small opening in middle of incision line with scant amount of salmon colored drainage, non tender, no fluctuance. Remainder of incision well healed. - Extremities Exam Extremities exam: Positive for: normal inspection. Negative for: pedal edema - Neurological Exam Neurological exam: Alert, CN II-XII Intact, Oriented x3 - Psychiatric Exam Psychiatric exam: Normal Affect, Normal Mood - Skin Skin Exam: Dry, Normal Color, Warm Additional comments: see ab exam for skin findings Results - Vital Signs Recent Vital Signs: Last Vital Signs Temp 98.4 F 12/20/17 17:39 Pulse 70 12/20/17 23:38 Resp 16 12/20/17 23:38 BP 181/75 H 12/20/17 23:38 Pulse Ox 98 12/21/17 00:41 - Labs Result Diagrams: 12/20/17 19:29 12/20/17 19:29 Labs: Laboratory Results - last 24 hr 12/20/17 12/20/17 12/20/17 19:29 19:29 19:29 WBC 9.3 RBC 3.44 L Hgb 9.5 L Hct 28.0 L MCV 81.3 D MCH 27.7 MCHC 34.1 RDW 14.8 H Plt Count 565 H D MPV 7.3 Neut % (Auto) 75.1 H Lymph % (Auto) 14.4 L [place] % (Auto) 9.2 Eos % (Auto) 0.7 Baso % (Auto) 0.6 Neut # (Auto) 7.0 Lymph # (Auto) 1.3 [place] # (Auto) 0.9 H Eos # (Auto) 0.1 Baso # (Auto) 0.1 Sodium 134 Potassium 3.0 L Chloride 94 L Carbon Dioxide 29 Anion Gap 15 BUN 16 Creatinine 0.7 Est GFR ( Amer) > 60 Est GFR (Non-Af Amer) > 60 Random Glucose 114 H Calcium 8.0 L Total Bilirubin 0.7 AST 17 ALT 24 Alkaline Phosphatase 61 Total Protein 7.3 Albumin 3.2 L D Globulin 4.1 H Albumin/Globulin Ratio 0.8 L Lipase 376 H Urine Color Yellow Urine Clarity Hazy Urine pH 6.0 Ur Specific [place] 1.020 Urine Protein 2+ H Urine Glucose (UA) Normal Urine Ketones Trace Urine Blood Negative Urine Nitrate Negative Urine Bilirubin Negative Urine Urobilinogen 2.0 H Ur Leukocyte Esterase Neg Urine WBC (Auto) 3 Urine RBC (Auto) 4 H Ur Squamous Epith Cells 6 H Hyaline Casts 0-2 Assessment & Plan - Assessment and Plan (Free Text) Assessment: 82F w/MH sig for perforated Duodenal ulcer s/p repair with Joselito patch in November 2017 consulted for abdominal pain due to gastric outlet obstruction Plan: Ancef Q8H IVF NPO ABx Pain control Continue Protonix drip DVT ppx NGT if pt becomes distended Serial ab exams DW attending [place], PGY-1 - Date & Time Date: 12/21/17 Time: 01:15 <Roman Haque - Last Filed: 12/22/17 10:47> Meds - Medications Medications: Current Medications Hydralazine HCl (Apresoline) 10 mg IVP Q6H PRN PRN Reason: Systolic Blood Pressure Cefazolin Sodium 500 mg/ (Sodium Chloride) 100 mls @ 100 mls/hr IVPB Q8H [facility] Last Admin: 12/22/17 04:30 Dose: 100 mls/hr Pantoprazole Sodium 80 mg/ (Sodium Chloride) 100 mls @ 10 mls/hr IV .Q10H [facility] PRN Reason: 8 MG/HR Last Admin: 12/21/17 20:32 Dose: 10 mls/hr Potassium Chloride 80 meq/ (Lactated Ringer's) 1,040 mls @ 100 mls/hr IV .[id number] [facility] Last Admin: 12/22/17 05:04 Dose: 100 mls/hr Losartan Potassium (Cozaar) 100 mg PO DAILY [facility] Metoprolol Succinate (Toprol Xl) 25 mg PO DAILY [facility] Morphine Sulfate (Morphine) 2 mg IVP Q4 PRN PRN Reason: Pain, moderate (4-7) Ondansetron HCl (Zofran Inj) 4 mg IVP Q4 PRN PRN Reason: Nausea/Vomiting Pneumococcal Polyvalent Vaccine (Pneumovax 23 Vaccine) 0.5 ml IM .ONCE ONE Stop: 12/23/17 10:01 Polyethylene Glycol (Miralax) 17 gm PO DAILY [facility] Results - Vital Signs Recent Vital Signs: Last Vital Signs Temp 98.0 F 12/22/17 08:35 Pulse 57 L 12/22/17 08:35 Resp 18 12/22/17 08:35 BP 145/72 12/22/17 08:35 Pulse Ox 96 12/22/17 08:35 - Labs Result Diagrams: 12/22/17 08:43 12/22/17 08:43 Labs: Laboratory Results - last 24 hr 12/21/17 12/21/17 12/22/17 07:54 07:54 08:43 WBC 6.0 RBC 2.53 L Hgb 8.0 L Hct 22.6 L MCV 89.3 D MCH 31.6 H MCHC 35.4 RDW 14.9 H Plt Count 356 D MPV 7.6 Neut % (Auto) 72.5 Lymph % (Auto) 13.0 L [place] % (Auto) 6.5 Eos % (Auto) 7.9 H Baso % (Auto) 0.1 Neut # (Auto) 4.3 Lymph # (Auto) 0.8 L [place] # (Auto) 0.4 Eos # (Auto) 0.5 Baso # (Auto) 0.0 Neutrophils % (Manual) 94 H Lymphocytes % (Manual) 4 L Monocytes % (Manual) 2 Platelet Estimate Increased H Anisocytosis (manual) Slight Sodium Potassium 2.5 L* Chloride Carbon Dioxide Anion Gap BUN Creatinine Est GFR ( Amer) Est GFR (Non-Af Amer) Random Glucose Calcium Magnesium Total Bilirubin AST ALT Alkaline Phosphatase Total Protein Albumin Globulin Albumin/Globulin Ratio 12/22/17 08:43 WBC RBC Hgb Hct MCV MCH MCHC RDW Plt Count MPV Neut % (Auto) Lymph % (Auto) [place] % (Auto) Eos % (Auto) Baso % (Auto) Neut # (Auto) Lymph # (Auto) [place] # (Auto) Eos # (Auto) Baso # (Auto) Neutrophils % (Manual) Lymphocytes % (Manual) Monocytes % (Manual) Platelet Estimate Anisocytosis (manual) Sodium 135 Potassium 4.1 Chloride 104 Carbon Dioxide 25 Anion Gap 11 BUN 14 Creatinine 0.8 Est GFR ( Amer) > 60 Est GFR (Non-Af Amer) > 60 Random Glucose 110 H Calcium 7.6 L Magnesium 1.6 Total Bilirubin 0.5 AST 16 ALT 24 Alkaline Phosphatase 47 Total Protein 5.9 L Albumin 2.5 L Globulin 3.3 Albumin/Globulin Ratio 0.8 L Attending/Attestation - Attestation I have personally seen and examined this patient.: Yes I have fully participated in the care of the patient.: Yes I have reviewed all pertinent clinical information: Yes Notes (Text): Pt was seen and examined at bedside Agree with above note and assessment Pt with recent h/o exp lap and Joselito patch repair of duodenal perforation Nausea, Vomiting and upper abdominal pain and tenderness Labs reviewed CT scan A/P suggestive possible gastric outlet obstruction Ass: Clinically Less likely GOO Plan: GI consult NPO, IVF IV antibiotics Plan d.w pt in detail Risk and benefit explained in detail.
--- NOTE | 2017-12-21 01:56 | CP.PCM.HP ---
History of Present Illness - History of Present Illness History of Present Illness: CC:" Vomiting" HPI: 82 year old female with past medical history of perforated Duodenal ulcer repair in November of 2017 presents to the ED for vomiting. Patient states she has been vomiting since about 2-3x per day. She denies any blood in her vomit. She states she also has some abdominal tenderness that has been about the same since her surgery in November. She states her pain is a 5-6/10 and it comes and goes. She states she recently went to Dr. Haque's office 12/17/17 because she noticed some puss from her incision site. She stated he prescribed her Levaquin and states she has taken 3 days of medication. She states her last bowel movement was this morning and it was formed stool and normal and she states she is passing flatus. Patient denies chest pain, palpitations, fever, chills, constipation, or diarrhea. General Surgeon: Dr. Haque Past Medical History: HTN, perforated duodenal ulcer Past Surgical History: hysterectomy, ex-lap with duodenal ulcer repair (2017) Medications: Metoprolol XL 25mg daily; Levaquin 500mg daily on third out of seven days Allergies: NKDA Social History: Lives with nephew; denies smoking; alcohol or illicit drug use Present on Admission - Present on Admission Any Indicators Present on Admission: No Review of Systems - Constitutional Constitutional: absent: Chills, Fever - EENT Eyes: absent: Blurred Vision - Cardiovascular Cardiovascular: absent: Chest Pain, Dyspnea, Palpitations - Respiratory Respiratory: absent: Dyspnea - Gastrointestinal Gastrointestinal: Abdominal Pain, Nausea, Vomiting. absent: Constipation, Diarrhea - Genitourinary Genitourinary: absent: Dysuria - Musculoskeletal Musculoskeletal: absent: Numbness, Tingling Past Patient History - Infectious Disease Hx of Infectious Diseases: None - Past Medical History & Family History Past Medical History?: Yes - Past Social History Smoking Status: Never Smoked - CARDIAC Hx Hypertension: Yes - PULMONARY Hx Respiratory Disorders: No - NEUROLOGICAL Hx Neurological Disorder: No - HEENT Hx Cataracts: Yes (cataractas surgery 1979) - HEMATOLOGICAL/ONCOLOGICAL Hx Blood Disorders: No - INTEGUMENTARY Hx Dermatological Problems: No - MUSCULOSKELETAL/RHEUMATOLOGICAL Hx Arthritis: Yes - GASTROINTESTINAL Other/Comment: ABDOMINAL PAIN - GENITOURINARY/GYNECOLOGICAL Hx Genitourinary Disorders: No - PSYCHIATRIC Hx Substance Use: No - SURGICAL HISTORY Other/Comment: MYomectomy - ANESTHESIA Hx Anesthesia: Yes Hx Anesthesia Reactions: No Meds Allergies/Adverse Reactions: Allergies Allergy/AdvReac Type Severity Reaction Status Date / Time No Known Allergies Allergy Verified 12/20/17 17:37 Physical Exam - Constitutional Appears: No Acute Distress - Head Exam Head Exam: ATRAUMATIC, NORMAL INSPECTION - Eye Exam Eye Exam: EOMI, Normal appearance - ENT Exam ENT Exam: Mucous Membranes Moist - Respiratory Exam Respiratory Exam: Clear to Auscultation Bilateral, NORMAL BREATHING PATTERN - Cardiovascular Exam Cardiovascular Exam: REGULAR RHYTHM, +S1, +S2 - GI/Abdominal Exam GI & Abdominal Exam: Normal Bowel Sounds, Soft, Tenderness. absent: Distended, Firm, Guarding Additional comments: sutures are clean dry and intact - Extremities Exam Extremities exam: Positive for: normal inspection. Negative for: pedal edema, tenderness - Neurological Exam Neurological exam: Alert, CN II-XII Intact, Oriented x3 - Psychiatric Exam Psychiatric exam: Normal Affect, Normal Mood - Skin Skin Exam: Normal Color, Warm Results - Vital Signs Recent Vital Signs: Last Vital Signs Temp 98.4 F 12/20/17 17:39 Pulse 70 12/20/17 23:38 Resp 16 12/20/17 23:38 BP 181/75 H 12/20/17 23:38 Pulse Ox 98 12/21/17 00:41 - Labs Result Diagrams: 12/20/17 19:29 12/20/17 19:29 Labs: Laboratory Results - last 24 hr 12/20/17 12/20/17 12/20/17 19:29 19:29 19:29 WBC 9.3 RBC 3.44 L Hgb 9.5 L Hct 28.0 L MCV 81.3 D MCH 27.7 MCHC 34.1 RDW 14.8 H Plt Count 565 H D MPV 7.3 Neut % (Auto) 75.1 H Lymph % (Auto) 14.4 L [place] % (Auto) 9.2 Eos % (Auto) 0.7 Baso % (Auto) 0.6 Neut # (Auto) 7.0 Lymph # (Auto) 1.3 [place] # (Auto) 0.9 H Eos # (Auto) 0.1 Baso # (Auto) 0.1 Sodium 134 Potassium 3.0 L Chloride 94 L Carbon Dioxide 29 Anion Gap 15 BUN 16 Creatinine 0.7 Est GFR ( Amer) > 60 Est GFR (Non-Af Amer) > 60 Random Glucose 114 H Calcium 8.0 L Total Bilirubin 0.7 AST 17 ALT 24 Alkaline Phosphatase 61 Total Protein 7.3 Albumin 3.2 L D Globulin 4.1 H Albumin/Globulin Ratio 0.8 L Lipase 376 H Urine Color Yellow Urine Clarity Hazy Urine pH 6.0 Ur Specific [place] 1.020 Urine Protein 2+ H Urine Glucose (UA) Normal Urine Ketones Trace Urine Blood Negative Urine Nitrate Negative Urine Bilirubin Negative Urine Urobilinogen 2.0 H Ur Leukocyte Esterase Neg Urine WBC (Auto) 3 Urine RBC (Auto) 4 H Ur Squamous Epith Cells 6 H Hyaline Casts 0-2 Assessment & Plan - Assessment and Plan (Free Text) Assessment: 1.) Abdominal pain - s/p perforated Duodenal ulcer repair 12/03/17 - Surgery Consult: Dr. Haque --> help appreciated - Ct Abd/pelvis: Findings highly suspicious for large 3 cm inflamed gastric ulcer, associated with marked gastric wall thickening. There is nearby diffuse fat stranding/inflammation and fluid in the right abdomen. No free air seen to suggest a surya gastric perforation. - Cefazolin 500mg q8h - LR @100cc/hr - Morphine 2mg q4 prn - Zofran 4mg q4 prn - NPO 2.) History of HTN - NPO - Home medications on hold due to NPO: Losartan 100mg daily; Metoprolol 25mg po daily - Hydralazine 10 q6 prn systolic bp >160 3.) Prophylaxis - scds - protonix Will discuss case with Dr. Dane Hedrick PGY-1
[2017-12-21] MEDS ORDERED: ceFAZolin 1 GM in Sodium Chloride 0.9% 50 ML IVPB SCH (03:30)
[2017-12-21] MEDS ORDERED: Potassium Chloride 20 MEQ in Lactated Ringer's 1,000 ML IV SCH (05:09)
[2017-12-21 08:34] LABS: EOS % 0.1 % (0.0-4.0); HEMOGLOBIN 9.9 g/dL (11.0-16.0); RED CELL DISTRIBUTION WIDTH 14.8 % (11.5-14.5)
[2017-12-21 08:39] LABS: ALB/GLOB RATIO 0.8 (1.0-2.1); ALBUMIN 3.1 g/dL (3.5-5.0); ALT/SGPT 14 U/L (9-52); AST/SGOT 27 U/L (14-36); BLOOD UREA NITROGEN 13 mg/dL (7-17); GFR AFRICAN-AMERICAN > 60; GFR NON-AFRICAN AMERICAN > 60; MAGNESIUM 1.4 mg/dL (1.6-2.3)
[2017-12-21 09:06] LABS: BASO % 0.2 % (0.0-2.0); LYMPH # 0.5 K/uL (1.0-4.3); LYMPH % 3.1 % (20.0-40.0); MEAN CELL VOLUME 79.8 fL (81.0-99.0); MEAN CORPUSCULAR HEMOGLOBIN 26.2 pg (27.0-31.0); MEAN CORPUSCULAR HGB CONC 32.9 g/dL (33.0-37.0); MEAN PLATELET VOLUME 7.8 fL (7.2-11.7); MONO # 0.4 K/uL (0.0-0.8); MONO % 2.3 % (0.0-10.0); NEUT # 15.1 K/uL (1.8-7.0); NEUT % 94.3 % (50.0-75.0); NRBC % 0.1 % (0.0-2.0); PLATELET COUNT 554 K/uL (130-400); RBC 3.77 Mil/uL (3.80-5.20)
[2017-12-21 09:10] LABS: WHITE BLOOD COUNT 11.1 K/uL (4.8-10.8)
[2017-12-21] MEDS ORDERED: Pantoprazole 80 MG in Sodium Chloride 0.9% 100 ML IV SCH (09:45)
[2017-12-21] MEDS: Pantoprazole 80 MG in Sodium Chloride 0.9% 100 ML IV SCH ×2 (10:35→20:32)
[2017-12-21 10:59] LABS: ANISOCYTOSIS SLIGHT; LYMPHOCYTE 4 % (20-40); MONOCYTE 2 % (0-10); NEUTROPHIL 94 % (50-75); PLATELET ESTIMATE INCREASED (NORMAL); TOTAL CELLS COUNTED 100
--- NOTE | 2017-12-21 13:48 | CP.PCM.CON ---
History of Present Illness - History of Present Illness History of Present Illness: Asked by hospitalist team for a GI consultation on this patient. 82 year old female with history of HTN, gout, recent perforated duodenal ulcer s/p surgical placement of armando patch on december 02 who presents to hospital with complaint of vomiting which started 3 days ago. She had a non complicated post operative course, however she admits to being non-compliant with recommended diet as outpatient. Her symptoms of vomiting started following consumption of fish and rice. She denies abdominal pain, nausea, fever/chills, or weight loss. She had a normal formed bowel movement yesterday and is currently passing gas. No recurrent vomiting since arrival to hospital, she is tolerating PO liquids without difficulty. No prior endoscopic evaluation. Social history: non-smoker, no ETOH use Family history: reviewed, patient denies history of GI malignancies Review of Systems - Review of Systems Review of Systems: - All other comprehensive 12 point review of systems performed, negative - Cardiovascular Cardiovascular: absent: Acrocyanosis, Chest Pain, Chest Pain at Rest, Chest Pain with Activity, Claudication, Diaphoresis, Dyspnea, Dyspnea on Exertion, Edema, Irregular Heart Rhythm, Pain Radiating to Arm/Neck/Jaw, Leg Edema, Leg Ulcers, Lightheadedness, Orthopnea, Palpitations, Paroxysmal Nocturnal Dyspnea, Pedal Edema, Radiating Pain, Rapid Heart Rate, Slow Heart Rate, Syncope, Other - Respiratory Respiratory: absent: Cough, Dyspnea, Hemoptysis, Dyspnea on Exertion, Wheezing, Snoring, Stridor, Pain on Inspiration, Chest Congestion, Excessive Mucous Production, Change in Mucous Color, Pain with Coughing, Other - Gastrointestinal Gastrointestinal: Vomiting - Musculoskeletal Musculoskeletal: absent: Abnormal Gait, Arthralgias, Atrophy, Back Pain, Deformity, Joint Swelling, Limited Range of Motion, Loss of Height, Muscle Cramps, Muscle Weakness, Myalgias, Neck Pain, Numbness, Radiating Pain into Limb , Stiffness, Tingling, Other - Neurological Neurological: absent: Abnormal Gait, Abnormal Hearing, Abnormal Movements, Abnormal Speech, Behavioral Changes, Burning Sensations, Confusion, Convulsions , Disequilibrium, Dizziness, Numbness, Focal Weakness, Frequent Falls, Headaches , Lack of Coordination, Loss of Vision, Memory Loss, Paresthesias, Radicular Pain, Restless Legs, Sensory Deficit, Syncope, Tingling, Tremor, Vertigo, Weakness, Other Visual Disturbances, Other Past Patient History - Infectious Disease Hx of Infectious Diseases: None - Past Medical History & Family History Past Medical History?: Yes - Past Social History Smoking Status: Never Smoked - CARDIAC Hx Cardiac Disorders: Yes Hx Hypertension: Yes - PULMONARY Hx Respiratory Disorders: No - NEUROLOGICAL Hx Neurological Disorder: No - HEENT Hx HEENT Problems: Yes Hx Cataracts: Yes (cataractas surgery 1979) - RENAL Hx Chronic Kidney Disease: No - ENDOCRINE/METABOLIC Hx Endocrine Disorders: No - HEMATOLOGICAL/ONCOLOGICAL Hx Blood Disorders: No - INTEGUMENTARY Hx Dermatological Problems: No - MUSCULOSKELETAL/RHEUMATOLOGICAL Hx Musculoskeletal Disorders: Yes Hx Arthritis: Yes Hx Falls: No - GASTROINTESTINAL Hx Gastrointestinal Disorders: No Other/Comment: ABDOMINAL PAIN - GENITOURINARY/GYNECOLOGICAL Hx Genitourinary Disorders: No - PSYCHIATRIC Hx Psychophysiologic Disorder: No Hx Substance Use: No - SURGICAL HISTORY Hx Surgeries: Yes Other/Comment: MYomectomy - ANESTHESIA Hx Anesthesia: Yes Hx Anesthesia Reactions: No Meds Allergies/Adverse Reactions: Allergies Allergy/AdvReac Type Severity Reaction Status Date / Time No Known Allergies Allergy Verified 12/20/17 17:37 - Medications Medications: Current Medications Hydralazine HCl (Apresoline) 10 mg IVP Q6H PRN PRN Reason: Systolic Blood Pressure Cefazolin Sodium 500 mg/ (Sodium Chloride) 100 mls @ 100 mls/hr IVPB Q8H [facility] Last Admin: 12/21/17 04:20 Dose: 100 mls/hr Potassium Chloride 20 meq/ (Lactated Ringer's) 1,010 mls @ 100 mls/hr IV .Q10H6M [facility] Last Admin: 12/21/17 06:00 Dose: 100 mls/hr Pantoprazole Sodium 80 mg/ (Sodium Chloride) 100 mls @ 10 mls/hr IV .Q10H [facility] PRN Reason: 8 MG/HR Last Admin: 12/21/17 10:35 Dose: 10 mls/hr Morphine Sulfate (Morphine) 2 mg IVP Q4 PRN PRN Reason: Pain, moderate (4-7) Ondansetron HCl (Zofran Inj) 4 mg IVP Q4 PRN PRN Reason: Nausea/Vomiting Pneumococcal Polyvalent Vaccine (Pneumovax 23 Vaccine) 0.5 ml IM .ONCE ONE Stop: 12/23/17 10:01 Physical Exam - Constitutional Appears: Non-toxic, No Acute Distress - Head Exam Head Exam: NORMAL INSPECTION - Eye Exam Eye Exam: EOMI, Normal appearance - ENT Exam ENT Exam: Mucous Membranes Moist - Respiratory Exam Respiratory Exam: Clear to Auscultation Bilateral - Cardiovascular Exam Cardiovascular Exam: REGULAR RHYTHM, +S1, +S2 - GI/Abdominal Exam GI & Abdominal Exam: Normal Bowel Sounds, Soft Additional comments: non tender to palpation in four quadrants midline surgical scar present no palpable hepato/splenomegaly - Extremities Exam Extremities exam: Positive for: normal inspection - Neurological Exam Neurological exam: Alert, CN II-XII Intact, Oriented x3, Reflexes Normal - Psychiatric Exam Psychiatric exam: Normal Affect, Normal Mood - Skin Skin Exam: Dry, Intact, Normal Color, Warm Results - Vital Signs Recent Vital Signs: Last Vital Signs Temp 98.0 F 12/21/17 08:17 Pulse 94 H 12/21/17 08:17 Resp 18 12/21/17 08:17 BP 153/65 H 12/21/17 08:17 Pulse Ox 97 12/21/17 08:17 - Labs Result Diagrams: 12/21/17 07:54 12/21/17 07:54 Labs: Laboratory Results - last 24 hr 12/20/17 12/20/17 12/20/17 19:29 19:29 19:29 WBC 9.3 RBC 3.44 L Hgb 9.5 L Hct 28.0 L MCV 81.3 D MCH 27.7 MCHC 34.1 RDW 14.8 H Plt Count 565 H D MPV 7.3 Neut % (Auto) 75.1 H Lymph % (Auto) 14.4 L [place] % (Auto) 9.2 Eos % (Auto) 0.7 Baso % (Auto) 0.6 Neut # (Auto) 7.0 Lymph # (Auto) 1.3 [place] # (Auto) 0.9 H Eos # (Auto) 0.1 Baso # (Auto) 0.1 Neutrophils % (Manual) Lymphocytes % (Manual) Monocytes % (Manual) Platelet Estimate Anisocytosis (manual) Sodium 134 Potassium 3.0 L Chloride 94 L Carbon Dioxide 29 Anion Gap 15 BUN 16 Creatinine 0.7 Est GFR ( Amer) > 60 Est GFR (Non-Af Amer) > 60 Random Glucose 114 H Calcium 8.0 L Phosphorus Magnesium Total Bilirubin 0.7 AST 17 ALT 24 Alkaline Phosphatase 61 Total Protein 7.3 Albumin 3.2 L D Globulin 4.1 H Albumin/Globulin Ratio 0.8 L Lipase 376 H Urine Color Yellow Urine Clarity Hazy Urine pH 6.0 Ur Specific [place] 1.020 Urine Protein 2+ H Urine Glucose (UA) Normal Urine Ketones Trace Urine Blood Negative Urine Nitrate Negative Urine Bilirubin Negative Urine Urobilinogen 2.0 H Ur Leukocyte Esterase Neg Urine WBC (Auto) 3 Urine RBC (Auto) 4 H Ur Squamous Epith Cells 6 H Hyaline Casts 0-2 12/21/17 12/21/17 07:54 07:54 WBC 11.1 H RBC 3.77 L Hgb 9.9 L Hct 30.0 L MCV 79.8 L MCH 26.2 L MCHC 32.9 L RDW 14.8 H Plt Count 554 H MPV 7.8 Neut % (Auto) 94.3 H Lymph % (Auto) 3.1 L [place] % (Auto) 2.3 Eos % (Auto) 0.1 Baso % (Auto) 0.2 Neut # (Auto) 15.1 H Lymph # (Auto) 0.5 L [place] # (Auto) 0.4 Eos # (Auto) 0.0 Baso # (Auto) 0.0 Neutrophils % (Manual) 94 H Lymphocytes % (Manual) 4 L Monocytes % (Manual) 2 Platelet Estimate Increased H Anisocytosis (manual) Slight Sodium 133 Potassium 2.5 L* Chloride 95 L Carbon Dioxide 26 Anion Gap 15 BUN 13 Creatinine 0.8 Est GFR ( Amer) > 60 Est GFR (Non-Af Amer) > 60 Random Glucose 109 H Calcium 8.0 L Phosphorus 2.3 L Magnesium 1.4 L Total Bilirubin 0.9 AST 27 ALT 14 Alkaline Phosphatase 66 Total Protein 7.1 Albumin 3.1 L Globulin 4.0 H Albumin/Globulin Ratio 0.8 L Lipase Urine Color Urine Clarity Urine pH Ur Specific [place] Urine Protein Urine Glucose (UA) Urine Ketones Urine Blood Urine Nitrate Urine Bilirubin Urine Urobilinogen Ur Leukocyte Esterase Urine WBC (Auto) Urine RBC (Auto) Ur Squamous Epith Cells Hyaline Casts Assessment & Plan - Assessment and Plan (Free Text) Assessment: HTN Gout Recent history of perforated duodenal ulcer s/p armando patch and lysis of adhesions on 12/02/17 Vomiting, dietary non-compliance CT imaging reviewed by me showing fecal retention, marked gastric wall thickening with air/fluid distention. No signs of obstruction or free air. Plan: - Clear liquid diet - Continue with PPI therapy - Continue with antibiotic therapy - Follow up surgical recommendations - Patient currently comfortable appearing and tolerating liquid diet, given recent operative intervention, would favor conservative management and continued observation. Current symptoms likely secondary to post operative inflammatory process. If patient develops recurrent vomiting or abdominal distention, suggest NGT placement for decompression and will need to consider endoscopic evaluation at that time. Will continue to monitor patient clinical course, discussed with Dr. Haque.
--- NOTE | 2017-12-21 15:23 | CP.PCM.PN ---
Subjective - Date & Time of Evaluation Date of Evaluation: 12/21/17 Time of Evaluation: 15:21 - Subjective Subjective: Medicine progress note for Dr. Vela's service Patient was seen and examined at bedside in no acute distress. Patient reports no longer having abdominal pain, nausea, vomiting. Patient states she is hungry. Patient denies having chest pain, abdominal pain, shortness of breath, cough, headaches, fevers. Objective - Vital Signs/Intake and Output Vital Signs (last 24 hours): Temp Pulse Resp BP Pulse Ox 98.0 F 94 H 18 153/65 H 97 12/21/17 08:17 12/21/17 08:17 12/21/17 08:17 12/21/17 08:17 12/21/17 08:17 Intake and Output: 12/21/17 12/21/17 06:59 18:59 Intake Total 550 Balance 550 - Medications Medications: Current Medications Hydralazine HCl (Apresoline) 10 mg IVP Q6H PRN PRN Reason: Systolic Blood Pressure Cefazolin Sodium 500 mg/ (Sodium Chloride) 100 mls @ 100 mls/hr IVPB Q8H [facility] Last Admin: 12/21/17 04:20 Dose: 100 mls/hr Pantoprazole Sodium 80 mg/ (Sodium Chloride) 100 mls @ 10 mls/hr IV .Q10H [facility] PRN Reason: 8 MG/HR Last Admin: 12/21/17 10:35 Dose: 10 mls/hr Potassium Chloride 80 meq/ (Lactated Ringer's) 1,040 mls @ 100 mls/hr IV .[id number] [facility] Morphine Sulfate (Morphine) 2 mg IVP Q4 PRN PRN Reason: Pain, moderate (4-7) Ondansetron HCl (Zofran Inj) 4 mg IVP Q4 PRN PRN Reason: Nausea/Vomiting Pneumococcal Polyvalent Vaccine (Pneumovax 23 Vaccine) 0.5 ml IM .ONCE ONE Stop: 12/23/17 10:01 - Labs Labs: 12/21/17 07:54 12/21/17 07:54 - Constitutional Appears: No Acute Distress - Head Exam Head Exam: ATRAUMATIC, NORMAL INSPECTION - Eye Exam Eye Exam: EOMI, Normal appearance - ENT Exam ENT Exam: Mucous Membranes Moist - Respiratory Exam Respiratory Exam: Clear to Ausculation Bilateral, NORMAL BREATHING PATTERN. absent: Rales, Rhonchi, Wheezes, Respiratory Distress - Cardiovascular Exam Cardiovascular Exam: REGULAR RHYTHM, +S1, +S2 - GI/Abdominal Exam GI & Abdominal Exam: Soft, Tenderness (mild, with palpation), Normal Bowel Sounds Additional comments: Midline scar- well healed; minimal nonpurulent discharged noted at umbilicus. - Extremities Exam Extremities Exam: Normal Inspection - Neurological Exam Neurological Exam: Alert, Awake, Oriented x3 - Psychiatric Exam Psychiatric exam: Normal Affect, Normal Mood - Skin Skin Exam: Dry, Intact, Normal Color, Warm Assessment and Plan - Assessment and Plan (Free Text) Plan: 1.) Abdominal pain * s/p perforated Duodenal ulcer repair 12/03/17 * Surgery Consult: Dr. Haque --> help appreciated * Ct Abd/pelvis: findings highly suspicious for large 3 cm inflamed gastric ulcer, associated with marked gastric wall thickening; there is nearby diffuse fat stranding/inflammation and fluid in the right abdomen; no free air seen to suggest a surya gastric perforation. * Cefazolin 500mg q8h * LR @100cc/hr + 80mEq K+ * Morphine 2mg q4 prn * Zofran 4mg q4 prn * Protonix drip * GI consulted, Dr. Mak, help appreciated * As per GI, advance to Clear liquid diet * consider NG tube if becomes distended or continues to vomit * consider endoscopy for further evaluation 2.) History of HTN * Restarted Home medications: Losartan 100mg daily; Metoprolol 25mg po daily * Hydralazine 10 q6 prn systolic bp >160 * Continue to monitor 3.) Prophylaxis * scds * protonix Discussed with Dr. Vela All management per Dr. Vela
[2017-12-21] MEDS: LACTATED RINGER S IV SCH (17:14)
[2017-12-21] MEDS: POTASSIUM CHLORIDE IV SCH (17:14)
[2017-12-22] MEDS: POTASSIUM CHLORIDE IV SCH ×5 (00:30→21:12)
[2017-12-22] MEDS: LACTATED RINGER S IV SCH ×5 (00:30→21:12)
--- NOTE | 2017-12-22 08:58 | CP.PCM.PN ---
<Susi Lofton - Last Filed: 12/22/17 13:04> Subjective - Date & Time of Evaluation Date of Evaluation: 12/22/17 Time of Evaluation: 08:30 - Subjective Subjective: PGY 4 GI Follow-up Pt seen and examined bedside Denies any nausea or vomiting BM 2 days ago Denies any abd pain ROS: 10 point ROS conducted, neg other than above Objective - Vital Signs/Intake and Output Vital Signs (last 24 hours): Temp Pulse Resp BP Pulse Ox 98.0 F 57 L 18 145/72 96 12/22/17 08:35 12/22/17 08:35 12/22/17 08:35 12/22/17 08:35 12/22/17 08:35 Intake and Output: 12/22/17 12/22/17 06:59 18:59 Intake Total 1920 Balance 1920 - Medications Medications: Current Medications Hydralazine HCl (Apresoline) 10 mg IVP Q6H PRN PRN Reason: Systolic Blood Pressure Cefazolin Sodium 500 mg/ (Sodium Chloride) 100 mls @ 100 mls/hr IVPB Q8H ON [facility] OF [facility] Last Admin: 12/22/17 04:30 Dose: 100 mls/hr Pantoprazole Sodium 80 mg/ (Sodium Chloride) 100 mls @ 10 mls/hr IV .Q10H [facility] PRN Reason: 8 MG/HR Last Admin: 12/21/17 20:32 Dose: 10 mls/hr Potassium Chloride 80 meq/ (Lactated Ringer's) 1,040 mls @ 100 mls/hr IV .[id number] ON [facility] OF [facility] Last Admin: 12/22/17 05:04 Dose: 100 mls/hr Losartan Potassium (Cozaar) 100 mg PO DAILY ON [facility] OF [facility] Metoprolol Succinate (Toprol Xl) 25 mg PO DAILY ON LICENSE OF [facility] Morphine Sulfate (Morphine) 2 mg IVP Q4 PRN PRN Reason: Pain, moderate (4-7) Ondansetron HCl (Zofran Inj) 4 mg IVP Q4 PRN PRN Reason: Nausea/Vomiting Pneumococcal Polyvalent Vaccine (Pneumovax 23 Vaccine) 0.5 ml IM .ONCE ONE Stop: 12/23/17 10:01 - Labs Labs: 12/21/17 07:54 12/21/17 07:54 - Constitutional Appears: Well, No Acute Distress - Head Exam Head Exam: ATRAUMATIC, NORMOCEPHALIC - Eye Exam Eye Exam: Normal appearance - ENT Exam ENT Exam: Mucous Membranes Moist - Neck Exam Neck Exam: Normal Inspection - Respiratory Exam Respiratory Exam: Clear to Ausculation Bilateral, NORMAL BREATHING PATTERN. absent: Rales, Rhonchi, Wheezes - Cardiovascular Exam Cardiovascular Exam: REGULAR RHYTHM, +S1, +S2 - GI/Abdominal Exam GI & Abdominal Exam: Soft, Normal Bowel Sounds. absent: Firm, Guarding, Rigid, Tenderness - Extremities Exam Extremities Exam: absent: Joint Swelling, Pedal Edema - Neurological Exam Neurological Exam: Alert, Awake, Oriented x3 - Psychiatric Exam Psychiatric exam: Normal Affect, Normal Mood - Skin Skin Exam: Dry, Intact, Normal Color, Warm Assessment and Plan - Assessment and Plan (Free Text) Assessment: Justa Posadas is a 82F w/ hx of recent duodenal perforation s/p repair, who presented to the hospital due to vomiting and abd pain Constipation Gastric wall thickening perforated duodenal ulcer s/p armando patch and lysis of adhesions on 12/02/17 Vomiting, dietary non-compliance HTN Gout Plan: - advance to full liquids - Continue with PPI therapy - Continue with antibiotic therapy - Follow up surgical recommendations - Patient currently comfortable appearing and tolerating liquid diet - Given recent operative intervention, would favor conservative management and continued observation. - will persue intervention ED, If patient develops recurrent vomiting or abdominal distention, suggest NGT placement for decompression if such events occur - Will continue to monitor patient clinical course D/W Dr. monroy <Joann ARRIOLA,[facility] - Last Filed: 12/22/17 14:53> Objective - Vital Signs/Intake and Output Vital Signs (last 24 hours): Temp Pulse Resp BP Pulse Ox 98.0 F 57 L 18 145/72 96 12/22/17 08:35 12/22/17 08:35 12/22/17 08:35 12/22/17 08:35 12/22/17 08:35 Intake and Output: 12/22/17 12/22/17 06:59 18:59 Intake Total 1920 Balance 1920 - Medications Medications: Current Medications Hydralazine HCl (Apresoline) 10 mg IVP Q6H PRN PRN Reason: Systolic Blood Pressure Cefazolin Sodium 500 mg/ (Sodium Chloride) 100 mls @ 100 mls/hr IVPB Q8H ON [facility] OF [facility] Last Admin: 12/22/17 11:01 Dose: 100 mls/hr Potassium Chloride 80 meq/ (Lactated Ringer's) 1,040 mls @ 100 mls/hr IV .[id number] ON LICENSE OF [facility] Last Admin: 12/22/17 10:50 Dose: Not Given Losartan Potassium (Cozaar) 100 mg PO DAILY ON [facility] Last Admin: 12/22/17 10:44 Dose: 100 mg Metoprolol Succinate (Toprol Xl) 25 mg PO DAILY ON [facility] OF [facility] Last Admin: 12/22/17 10:44 Dose: 25 mg Morphine Sulfate (Morphine) 2 mg IVP Q4 PRN PRN Reason: Pain, moderate (4-7) Ondansetron HCl (Zofran Inj) 4 mg IVP Q4 PRN PRN Reason: Nausea/Vomiting Pantoprazole Sodium (Protonix Ec Tab) 40 mg PO DAILY ON LICENSE OF [facility] Pneumococcal Polyvalent Vaccine (Pneumovax 23 Vaccine) 0.5 ml IM .ONCE ONE Stop: 12/23/17 10:01 Polyethylene Glycol (Miralax) 17 gm PO DAILY ON LICENSE OF [facility] Last Admin: 12/22/17 10:44 Dose: 17 gm - Labs Labs: 12/22/17 08:43 12/22/17 08:43 Attending/Attestation - Attestation I have personally seen and examined this patient.: Yes I have fully participated in the care of the patient.: Yes I have reviewed all pertinent clinical information, including history, physical exam and plan: Yes Notes (Text): 12/22/17 14:39 Patient seen with Gi fellow on rounds. This is a 82 year old F with recent history of recent duodenal perforation s/p repair, who presented to the hospital due to vomiting and abdominal pain with constipation. Ct showing gastric thickening. Physical exam-Soft abdomen. No guarding or tenderness. Hemodynamically stable. In setting of recent surgery will hold off on endoscopic evaluation and insufflation. Advance diet as tolerated. Discussed with Dr Haque. Will sign off now. Thank you for letting us participate in the care of your patient
[2017-12-22 09:11] LABS: BASO % 0.1 % (0.0-2.0); EOS # 0.5 K/uL (0.0-0.7); EOS % 7.9 % (0.0-4.0); LYMPH # 0.8 K/uL (1.0-4.3); MEAN CORPUSCULAR HEMOGLOBIN 31.6 pg (27.0-31.0); MEAN CORPUSCULAR HGB CONC 35.4 g/dL (33.0-37.0); MEAN PLATELET VOLUME 7.6 fL (7.2-11.7); MONO # 0.4 K/uL (0.0-0.8); MONO % 6.5 % (0.0-10.0); NEUT # 4.3 K/uL (1.8-7.0); NEUT % 72.5 % (50.0-75.0); RBC 2.53 Mil/uL (3.80-5.20); RED CELL DISTRIBUTION WIDTH 14.9 % (11.5-14.5)
[2017-12-22 09:12] LABS: MEAN CELL VOLUME 89.3 fL (81.0-99.0)
--- NOTE | 2017-12-22 09:16 | CP.PCM.PN ---
<Julia Veronica - Last Filed: 12/22/17 09:13> Subjective - Date & Time of Evaluation Date of Evaluation: 12/22/17 Time of Evaluation: 07:00 - Subjective Subjective: General Surgery Dr. Haque Pt S&E @bedside. NAEO. Pt has no complaints. denies abd pain, N/V, F/C. tolerating CLD. Objective - Vital Signs/Intake and Output Vital Signs (last 24 hours): Temp Pulse Resp BP Pulse Ox 98.0 F 57 L 18 145/72 96 12/22/17 08:35 12/22/17 08:35 12/22/17 08:35 12/22/17 08:35 12/22/17 08:35 Intake and Output: 12/22/17 12/22/17 06:59 18:59 Intake Total 1920 Balance 1920 - Medications Medications: Current Medications Hydralazine HCl (Apresoline) 10 mg IVP Q6H PRN PRN Reason: Systolic Blood Pressure Cefazolin Sodium 500 mg/ (Sodium Chloride) 100 mls @ 100 mls/hr IVPB Q8H [facility] Last Admin: 12/22/17 04:30 Dose: 100 mls/hr Pantoprazole Sodium 80 mg/ (Sodium Chloride) 100 mls @ 10 mls/hr IV .Q10H [facility] PRN Reason: 8 MG/HR Last Admin: 12/21/17 20:32 Dose: 10 mls/hr Potassium Chloride 80 meq/ (Lactated Ringer's) 1,040 mls @ 100 mls/hr IV .[id number] [facility] Last Admin: 12/22/17 05:04 Dose: 100 mls/hr Losartan Potassium (Cozaar) 100 mg PO DAILY [facility] Metoprolol Succinate (Toprol Xl) 25 mg PO DAILY [facility] Morphine Sulfate (Morphine) 2 mg IVP Q4 PRN PRN Reason: Pain, moderate (4-7) Ondansetron HCl (Zofran Inj) 4 mg IVP Q4 PRN PRN Reason: Nausea/Vomiting Pneumococcal Polyvalent Vaccine (Pneumovax 23 Vaccine) 0.5 ml IM .ONCE ONE Stop: 12/23/17 10:01 Polyethylene Glycol (Miralax) 17 gm PO DAILY [facility] - Labs Labs: 12/21/17 07:54 12/21/17 07:54 - Constitutional Appears: Non-toxic, No Acute Distress - Head Exam Head Exam: NORMAL INSPECTION - Eye Exam Eye Exam: Normal appearance - ENT Exam ENT Exam: Mucous Membranes Moist - Respiratory Exam Respiratory Exam: NORMAL BREATHING PATTERN. absent: Accessory Muscle Use, Respiratory Distress - GI/Abdominal Exam GI & Abdominal Exam: Soft. absent: Distended, Guarding, Tenderness, Rebound Additional comments: midline abd scar present no drainage appreciated - Extremities Exam Extremities Exam: Normal Inspection - Neurological Exam Neurological Exam: Alert, Awake, Oriented x3 - Psychiatric Exam Psychiatric exam: Normal Affect, Normal Mood - Skin Skin Exam: Dry, Intact, Normal Color, Warm Assessment and Plan - Assessment and Plan (Free Text) Assessment: 82 y/o F w/ Hx of perforated duodenal ulcer s/p Joselito patch repair in November 2017, now w/ abd pain 2/2 possible gastric outlet obstruction - resolved leukocytosis --> cont Ancef - cont Protonix drip - cont pain management - f/u GI recs --> advanced to FLD - cont conservative medical management Pt discussed w/ Dr. Garland Dumont Flicl DO PGY2 <Roman Haque - Last Filed: 12/22/17 15:54> Objective - Vital Signs/Intake and Output Vital Signs (last 24 hours): Temp Pulse Resp BP Pulse Ox 98.0 F 57 L 18 145/72 96 12/22/17 08:35 12/22/17 08:35 12/22/17 08:35 12/22/17 08:35 12/22/17 08:35 Intake and Output: 12/22/17 12/22/17 06:59 18:59 Intake Total 1920 Balance 1920 - Medications Medications: Current Medications Hydralazine HCl (Apresoline) 10 mg IVP Q6H PRN PRN Reason: Systolic Blood Pressure Cefazolin Sodium 500 mg/ (Sodium Chloride) 100 mls @ 100 mls/hr IVPB Q8H [facility] Last Admin: 12/22/17 11:01 Dose: 100 mls/hr Potassium Chloride 80 meq/ (Lactated Ringer's) 1,040 mls @ 100 mls/hr IV .[id number] [facility] Last Admin: 12/22/17 10:50 Dose: Not Given Losartan Potassium (Cozaar) 100 mg PO DAILY [facility] Last Admin: 12/22/17 10:44 Dose: 100 mg Metoprolol Succinate (Toprol Xl) 25 mg PO DAILY [facility] Last Admin: 12/22/17 10:44 Dose: 25 mg Morphine Sulfate (Morphine) 2 mg IVP Q4 PRN PRN Reason: Pain, moderate (4-7) Ondansetron HCl (Zofran Inj) 4 mg IVP Q4 PRN PRN Reason: Nausea/Vomiting Pantoprazole Sodium (Protonix Ec Tab) 40 mg PO DAILY [facility] Last Admin: 12/22/17 13:45 Dose: 40 mg Pneumococcal Polyvalent Vaccine (Pneumovax 23 Vaccine) 0.5 ml IM .ONCE ONE Stop: 12/23/17 10:01 Polyethylene Glycol (Miralax) 17 gm PO DAILY [facility] Last Admin: 12/22/17 10:44 Dose: 17 gm - Labs Labs: 12/22/17 08:43 12/22/17 08:43 Attending/Attestation - Attestation I have personally seen and examined this patient.: Yes I have fully participated in the care of the patient.: Yes I have reviewed all pertinent clinical information, including history, physical exam and plan: Yes Notes (Text): Pt was seen and examined at bedside Agree with above note and assessment Pt is improving clinically Tolerating liquid Advanced to full liquid diet Pt can be DC home today. f.u as out pt. local wound care Plan d.w pt in detail.
[2017-12-22 09:18] LABS: ALB/GLOB RATIO 0.8 (1.0-2.1); ALBUMIN 2.5 g/dL (3.5-5.0); ALT/SGPT 24 U/L (9-52); AST/SGOT 16 U/L (14-36); BLOOD UREA NITROGEN 14 mg/dL (7-17); CALCIUM 7.6 mg/dl (8.6-10.4); GFR AFRICAN-AMERICAN > 60; GFR NON-AFRICAN AMERICAN > 60; MAGNESIUM 1.6 mg/dL (1.6-2.3)
[2017-12-22] MEDS ORDERED: Influenza Vaccine 60 mcg/0.5 mL SYR (4YR UP) IM ONE (09:34)
--- NOTE | 2017-12-22 09:52 | CP.PCM.PN ---
Subjective - Date & Time of Evaluation Date of Evaluation: 12/22/17 Time of Evaluation: 09:52 - Subjective Subjective: Medicine progress note for Dr. Vela's service Patient was seen and examined at bedside in no acute distress. Patient was laying comfortably in bed. Patient reports tolerating liquid diet well and has no other complaints. She reports having a normal BM this morning. Patient denies chest pain, shortness of breath, abdominal pain, nausea, vomiting, fevers , and headache. Objective - Vital Signs/Intake and Output Vital Signs (last 24 hours): Temp Pulse Resp BP Pulse Ox 98.0 F 57 L 18 145/72 96 12/22/17 08:35 12/22/17 08:35 12/22/17 08:35 12/22/17 08:35 12/22/17 08:35 Intake and Output: 12/22/17 12/22/17 06:59 18:59 Intake Total 1920 Balance 1920 - Medications Medications: Current Medications Hydralazine HCl (Apresoline) 10 mg IVP Q6H PRN PRN Reason: Systolic Blood Pressure Cefazolin Sodium 500 mg/ (Sodium Chloride) 100 mls @ 100 mls/hr IVPB Q8H [facility] Last Admin: 12/22/17 04:30 Dose: 100 mls/hr Pantoprazole Sodium 80 mg/ (Sodium Chloride) 100 mls @ 10 mls/hr IV .Q10H [facility] PRN Reason: 8 MG/HR Last Admin: 12/21/17 20:32 Dose: 10 mls/hr Potassium Chloride 80 meq/ (Lactated Ringer's) 1,040 mls @ 100 mls/hr IV .[id number] [facility] Last Admin: 12/22/17 05:04 Dose: 100 mls/hr Losartan Potassium (Cozaar) 100 mg PO DAILY [facility] Metoprolol Succinate (Toprol Xl) 25 mg PO DAILY [facility] Morphine Sulfate (Morphine) 2 mg IVP Q4 PRN PRN Reason: Pain, moderate (4-7) Ondansetron HCl (Zofran Inj) 4 mg IVP Q4 PRN PRN Reason: Nausea/Vomiting Pneumococcal Polyvalent Vaccine (Pneumovax 23 Vaccine) 0.5 ml IM .ONCE ONE Stop: 12/23/17 10:01 Polyethylene Glycol (Miralax) 17 gm PO DAILY [facility] - Labs Labs: 12/22/17 08:43 12/22/17 08:43 - Additional Findings Additional findings: - Constitutional Appears: No Acute Distress - Head Exam Head Exam: ATRAUMATIC, NORMAL INSPECTION - Eye Exam Eye Exam: EOMI, Normal appearance - ENT Exam ENT Exam: Mucous Membranes Moist - Respiratory Exam Respiratory Exam: Clear to Ausculation Bilateral, NORMAL BREATHING PATTERN. absent: Rales, Rhonchi, Wheezes, Respiratory Distress - Cardiovascular Exam Cardiovascular Exam: REGULAR RHYTHM, +S1, +S2 - GI/Abdominal Exam GI & Abdominal Exam: Soft, Normal Bowel Sounds. absent: Tenderness Additional comments: Midline scar- well healed. - Extremities Exam Extremities Exam: Normal Inspection - Neurological Exam Neurological Exam: Alert, Awake, Oriented x3 - Psychiatric Exam Psychiatric exam: Normal Affect, Normal Mood - Skin Skin Exam: Dry, Intact, Normal Color, Warm Assessment and Plan - Assessment and Plan (Free Text) Plan: Assessment and Plan Plan: 1.) Abdominal pain * s/p perforated Duodenal ulcer repair 12/03/17 * Surgery Consult: Dr. Haque --> help appreciated * as per surgery, continue conservative medical management * Ct Abd/pelvis: findings highly suspicious for large 3 cm inflamed gastric ulcer, associated with marked gastric wall thickening; there is nearby diffuse fat stranding/inflammation and fluid in the right abdomen; no free air seen to suggest a surya gastric perforation. * Cefazolin 500mg q8h * LR @100cc/hr + 80mEq K+ * Morphine 2mg q4 prn * Zofran 4mg q4 prn * Protonix drip * GI consulted, Dr. Mak, help appreciated * As per GI, advance to Full liquid diet * consider NG tube if becomes distended or continues to vomit * consider endoscopy for further evaluation 2.) History of HTN * Restarted Home medications: Losartan 100mg daily; Metoprolol 25mg po daily * Hydralazine 10 q6 prn systolic bp >160 * Continue to monitor 3.) Prophylaxis * scds * protonix * PT Discussed with Dr. Vela All management per Dr. Vela
[2017-12-22] MEDS: POLYETHYLENE GLYCOL 3350 17 GM/Dose PACKET PO SCH (10:44)
[2017-12-22] MEDS: Metoprolol Succinate 25 mg XL Tab PO SCH (10:44)
[2017-12-22] MEDS: Pantoprazole 80 MG in Sodium Chloride 0.9% 100 ML IV SCH (10:57)
[2017-12-22] MEDS: Pantoprazole 40 mg EC Tab PO SCH (13:45)
[2017-12-23] MEDS: POTASSIUM CHLORIDE IV SCH (06:39)
[2017-12-23] MEDS: LACTATED RINGER S IV SCH (06:39)
[2017-12-23 07:29] LABS: BASO % 0.2 % (0.0-2.0); EOS # 0.4 K/uL (0.0-0.7); EOS % 7.5 % (0.0-4.0); HEMOGLOBIN 9.4 g/dL (11.0-16.0); LYMPH # 1.2 K/uL (1.0-4.3); LYMPH % 22.8 % (20.0-40.0); MEAN CELL VOLUME 88.5 fL (81.0-99.0); MEAN CORPUSCULAR HEMOGLOBIN 31.1 pg (27.0-31.0); MEAN CORPUSCULAR HGB CONC 35.1 g/dL (33.0-37.0); MEAN PLATELET VOLUME 7.6 fL (7.2-11.7); MONO # 0.4 K/uL (0.0-0.8); NEUT # 3.1 K/uL (1.8-7.0); NEUT % 61.5 % (50.0-75.0); RBC 3.03 Mil/uL (3.80-5.20); RED CELL DISTRIBUTION WIDTH 14.7 % (11.5-14.5); WHITE BLOOD COUNT 5.1 K/uL (4.8-10.8)
--- NOTE | 2017-12-23 07:42 | CP.PCM.PN ---
Subjective - Date & Time of Evaluation Date of Evaluation: 12/23/17 Time of Evaluation: 07:42 Objective - Vital Signs/Intake and Output Vital Signs (last 24 hours): Temp Pulse Resp BP Pulse Ox 97.9 F 73 20 130/80 95 12/23/17 04:30 12/23/17 04:30 12/23/17 04:30 12/23/17 06:30 12/23/17 04:30 Intake and Output: 12/23/17 12/23/17 06:59 18:59 Intake Total 1840 Output Total 1 Balance 1839 - Medications Medications: Current Medications Hydralazine HCl (Apresoline) 10 mg IVP Q6H PRN PRN Reason: Systolic Blood Pressure Last Admin: 12/23/17 05:44 Dose: 10 mg Cefazolin Sodium 500 mg/ (Sodium Chloride) 100 mls @ 100 mls/hr IVPB Q8H [facility] Last Admin: 12/23/17 03:24 Dose: 100 mls/hr Potassium Chloride 80 meq/ (Lactated Ringer's) 1,040 mls @ 100 mls/hr IV .[id number] [facility] Last Admin: 12/23/17 06:39 Dose: 100 mls/hr Losartan Potassium (Cozaar) 100 mg PO DAILY [facility] Last Admin: 12/22/17 10:44 Dose: 100 mg Metoprolol Succinate (Toprol Xl) 25 mg PO DAILY [facility] Last Admin: 12/22/17 10:44 Dose: 25 mg Morphine Sulfate (Morphine) 2 mg IVP Q4 PRN PRN Reason: Pain, moderate (4-7) Ondansetron HCl (Zofran Inj) 4 mg IVP Q4 PRN PRN Reason: Nausea/Vomiting Pantoprazole Sodium (Protonix Ec Tab) 40 mg PO DAILY [facility] Last Admin: 12/22/17 13:45 Dose: 40 mg Pneumococcal Polyvalent Vaccine (Pneumovax 23 Vaccine) 0.5 ml IM .ONCE ONE Stop: 12/23/17 10:01 Polyethylene Glycol (Miralax) 17 gm PO DAILY [facility] Last Admin: 12/22/17 10:44 Dose: 17 gm - Labs Labs: 12/23/17 07:07 12/22/17 08:43
[2017-12-23 07:53] LABS: ALB/GLOB RATIO 0.7 (1.0-2.1); ALBUMIN 2.6 g/dL (3.5-5.0); ALT/SGPT 19 U/L (9-52); AST/SGOT 20 U/L (14-36); BLOOD UREA NITROGEN 9 mg/dL (7-17); CALCIUM 8.1 mg/dl (8.6-10.4); GFR AFRICAN-AMERICAN > 60; GFR NON-AFRICAN AMERICAN > 60
[2017-12-23] MEDS ORDERED: Influenza Vaccine 60 mcg/0.5 mL SYR (4YR UP) IM ONE (10:00)
[2017-12-23] MEDS ORDERED: Pneumococcal 23-Valent Vaccine IM ONE (10:00)
[2017-12-23] MEDS: Metoprolol Succinate 25 mg XL Tab PO SCH (10:38)
[2017-12-23] MEDS: POLYETHYLENE GLYCOL 3350 17 GM/Dose PACKET PO SCH (10:38)
[2017-12-23] MEDS: Pantoprazole 40 mg EC Tab PO SCH (10:38)
--- NOTE | 2017-12-23 12:35 | CP.PCM.PN ---
Subjective - Date & Time of Evaluation Date of Evaluation: 12/23/17 Time of Evaluation: 06:30 - Subjective Subjective: General surgery progress note for Dr. Dillon Luu, PGY-1 Pt S & E at bedside this AM. Pt reports abdominal pain resolved- no longer experiencing nausea or vomiting. No complaints. Tolerating Full liquid diet. Objective - Vital Signs/Intake and Output Vital Signs (last 24 hours): Temp Pulse Resp BP Pulse Ox 97.9 F 73 20 148/74 95 12/23/17 04:30 12/23/17 10:37 12/23/17 04:30 12/23/17 10:37 12/23/17 04:30 Intake and Output: 12/23/17 12/23/17 06:59 18:59 Intake Total 1840 Output Total 1 Balance 1839 - Medications Medications: Current Medications Hydralazine HCl (Apresoline) 10 mg IVP Q6H PRN PRN Reason: Systolic Blood Pressure Last Admin: 12/23/17 05:44 Dose: 10 mg Cefazolin Sodium 500 mg/ (Sodium Chloride) 100 mls @ 100 mls/hr IVPB Q8H [facility] Last Admin: 12/23/17 11:54 Dose: 100 mls/hr Potassium Chloride 80 meq/ (Lactated Ringer's) 1,040 mls @ 100 mls/hr IV .[id number] [facility] Last Admin: 12/23/17 06:39 Dose: 100 mls/hr Losartan Potassium (Cozaar) 100 mg PO DAILY [facility] Last Admin: 12/23/17 10:38 Dose: 100 mg Metoprolol Succinate (Toprol Xl) 25 mg PO DAILY [facility] Last Admin: 12/23/17 10:38 Dose: 25 mg Morphine Sulfate (Morphine) 2 mg IVP Q4 PRN PRN Reason: Pain, moderate (4-7) Ondansetron HCl (Zofran Inj) 4 mg IVP Q4 PRN PRN Reason: Nausea/Vomiting Pantoprazole Sodium (Protonix Ec Tab) 40 mg PO DAILY [facility] Last Admin: 12/23/17 10:38 Dose: 40 mg Polyethylene Glycol (Miralax) 17 gm PO DAILY [facility] Last Admin: 12/23/17 10:38 Dose: 17 gm - Labs Labs: 12/23/17 07:07 12/23/17 07:07 - Constitutional Appears: Non-toxic, No Acute Distress - Head Exam Head Exam: ATRAUMATIC, NORMAL INSPECTION, NORMOCEPHALIC - Eye Exam Eye Exam: EOMI, Normal appearance - ENT Exam ENT Exam: Mucous Membranes Moist, Normal Exam - Neck Exam Neck Exam: Full ROM, Normal Inspection - Respiratory Exam Respiratory Exam: NORMAL BREATHING PATTERN - Cardiovascular Exam Cardiovascular Exam: REGULAR RHYTHM - GI/Abdominal Exam GI & Abdominal Exam: Soft. absent: Distended, Firm, Guarding, Rigid, Tenderness - Extremities Exam Extremities Exam: Normal Inspection - Neurological Exam Neurological Exam: Alert, Awake, Oriented x3 - Psychiatric Exam Psychiatric exam: Normal Affect, Normal Mood - Skin Skin Exam: Dry, Normal Color, Warm Assessment and Plan - Assessment and Plan (Free Text) Assessment: 82F w/ Hx of perforated duodenal ulcer s/p Joselito patch repair in November 2017, now w/abd pain 2/2 possible gastric outlet obstruction -resolved Plan: Tolerating FLD Ok to send home on full liquid diet from surgical standpoint Continue local wound care FU with Dr. Haque in the office in 1-2 weeks DW attending Bell, PGY-1
--- NOTE | 2017-12-23 13:54 | CP.PCM.DIS ---
Provider - Provider Date of Admission: 12/21/17 00:41 Attending physician: Wisam Vela Jr, MD Consults: General Surgery: Dr. Haque GI: Dr. Mak Time Spent in preparation of Discharge (in minutes): 45 Hospital Course - Lab Results Lab Results: Micro Results 12/21/17 16:00 Incision Site Gram Stain - Final 12/21/17 16:00 Incision Site Wound Culture - Final Methicillin Resistant S Aureus Most Recent Lab Values WBC 5.1 K/uL (4.8-10.8) 12/23/17 07:07 RBC 3.03 Mil/uL (3.80-5.20) L 12/23/17 07:07 Hgb 9.4 g/dL (11.0-16.0) L 12/23/17 07:07 Hct 26.8 % (34.0-47.0) L 12/23/17 07:07 MCV 88.5 fL (81.0-99.0) 12/23/17 07:07 MCH 31.1 pg (27.0-31.0) H 12/23/17 07:07 MCHC 35.1 g/dL (33.0-37.0) 12/23/17 07:07 RDW 14.7 % (11.5-14.5) H 12/23/17 07:07 Plt Count 350 K/uL (130-400) 12/23/17 07:07 MPV 7.6 fL (7.2-11.7) 12/23/17 07:07 Neut % (Auto) 61.5 % (50.0-75.0) 12/23/17 07:07 Lymph % (Auto) 22.8 % (20.0-40.0) 12/23/17 07:07 [place] % (Auto) 8.0 % (0.0-10.0) 12/23/17 07:07 Eos % (Auto) 7.5 % (0.0-4.0) H 12/23/17 07:07 Baso % (Auto) 0.2 % (0.0-2.0) 12/23/17 07:07 Neut # (Auto) 3.1 K/uL (1.8-7.0) 12/23/17 07:07 Lymph # (Auto) 1.2 K/uL (1.0-4.3) 12/23/17 07:07 [place] # (Auto) 0.4 K/uL (0.0-0.8) 12/23/17 07:07 Eos # (Auto) 0.4 K/uL (0.0-0.7) 12/23/17 07:07 Baso # (Auto) 0.0 K/uL (0.0-0.2) 12/23/17 07:07 Neutrophils % (Manual) 94 % (50-75) H 12/21/17 07:54 Lymphocytes % (Manual) 4 % (20-40) L 12/21/17 07:54 Monocytes % (Manual) 2 % (0-10) 12/21/17 07:54 Platelet Estimate Increased (NORMAL) H 12/21/17 07:54 Anisocytosis (manual) Slight 12/21/17 07:54 Sodium 134 mmol/L (132-148) 12/23/17 07:07 Potassium 4.8 mmol/L (3.6-5.2) 12/23/17 07:07 Chloride 103 mmol/L (98-107) 12/23/17 07:07 Carbon Dioxide 23 mmol/L (22-30) 12/23/17 07:07 Anion Gap 12 (10-20) 12/23/17 07:07 BUN 9 mg/dL (7-17) 12/23/17 07:07 Creatinine 0.7 mg/dL (0.7-1.2) 12/23/17 07:07 Est GFR ( Amer) > 60 12/23/17 07:07 Est GFR (Non-Af Amer) > 60 12/23/17 07:07 Random Glucose 95 mg/dL (65-105) 12/23/17 07:07 Calcium 8.1 mg/dl (8.6-10.4) L 12/23/17 07:07 Phosphorus 2.3 mg/dL (2.5-4.5) L 12/21/17 07:54 Magnesium 1.6 mg/dL (1.6-2.3) 12/22/17 08:43 Total Bilirubin 0.4 mg/dL (0.2-1.3) 12/23/17 07:07 AST 20 U/L (14-36) 12/23/17 07:07 ALT 19 U/L (9-52) 12/23/17 07:07 Alkaline Phosphatase 53 U/L (38-126) 12/23/17 07:07 Total Protein 6.2 g/dL (6.3-8.3) L 12/23/17 07:07 Albumin 2.6 g/dL (3.5-5.0) L 12/23/17 07:07 Globulin 3.6 gm/dL (2.2-3.9) 12/23/17 07:07 Albumin/Globulin Ratio 0.7 (1.0-2.1) L 12/23/17 07:07 Lipase 376 U/L (23-300) H 12/20/17 19:29 Urine Color Yellow (YELLOW) 12/20/17 19:29 Urine Clarity Hazy (Clear) 12/20/17 19:29 Urine pH 6.0 (5.0-8.0) 12/20/17 19:29 Ur Specific [place] 1.020 (1.003-1.030) 12/20/17 19:29 Urine Protein 2+ mg/dL (NEGATIVE) H 12/20/17 19:29 Urine Glucose (UA) Normal mg/dL (Normal) 12/20/17 19:29 Urine Ketones Trace mg/dL (NEGATIVE) 12/20/17 19:29 Urine Blood Negative (NEGATIVE) 12/20/17 19:29 Urine Nitrate Negative (NEGATIVE) 12/20/17 19:29 Urine Bilirubin Negative (NEGATIVE) 12/20/17 19:29 Urine Urobilinogen 2.0 mg/dL (0.2-1.0) H 12/20/17 19:29 Ur Leukocyte Esterase Neg [place]/uL (Negative) 12/20/17 19:29 Urine WBC (Auto) 3 /hpf (0-5) 12/20/17 19:29 Urine RBC (Auto) 4 /hpf (0-3) H 12/20/17 19:29 Ur Squamous Epith Cells 6 /hpf (0-5) H 12/20/17 19:29 Hyaline Casts 0-2 /lpf (0-2) 12/20/17 19:29 - Hospital Course Hospital Course: CC:" Vomiting" HPI: 82 year old female with past medical history of perforated Duodenal ulcer repair in November of 2017 presents to the ED for vomiting. Patient states she has been vomiting since about 2-3x per day. She denies any blood in her vomit. She states she also has some abdominal tenderness that has been about the same since her surgery in November. She states her pain is a 5-6/10 and it comes and goes. She states she recently went to Dr. Haque's office 12/17/17 because she noticed some puss from her incision site. She stated he prescribed her Levaquin and states she has taken 3 days of medication. She states her last bowel movement was this morning and it was formed stool and normal and she states she is passing flatus. Patient denies chest pain, palpitations, fever, chills, constipation, or diarrhea. General Surgeon: Dr. Haque Past Medical History: HTN, perforated duodenal ulcer Past Surgical History: hysterectomy, ex-lap with duodenal ulcer repair (2017) Medications: Metoprolol XL 25mg daily; Levaquin 500mg daily on third out of seven days Allergies: NKDA Social History: Lives with nephew; denies smoking; alcohol or illicit drug use Hospital Course: This patient was admitted on 12/21/17 with abdominal pain and vomiting for 2 days. In the ED, labs were drawn, imaging was done and medications were given. Patient was given Cefazolin and Lactated Ringer's in the ED and was given Morphine for pain. CT of the abdomen/pelvis showed findings suspicious for a large 3 cm inflamed gastric ulcer, involving the lesser curvature of the stomach associated with marked gastric wall thickening. Patient was started on Zofran for vomiting. GI was consulted and recommended continuing Protonix and conservative management as there was no evidence of perforation on the CT. General Surgery was consulted and recommended conservative management with pain medications, Zofran and Protonix. Wound culture was done and showed MRSA. Her chronic medical condition of hypertension was managed throughout her hospital course. Patient reports no abdominal pain, nausea, or vomiting currently and is tolerating a full liquid diet. As per surgery, patient is recommended to follow up outpatient with Dr. Haque in 1 -2 weeks and continue local wound care with topical Mupirocin for 2 weeks. This is a summary of the medical course, please see the medical records for more details. Discharge Exam - Head Exam Head Exam: ATRAUMATIC, NORMAL INSPECTION, NORMOCEPHALIC - Eye Exam Eye Exam: EOMI, Normal appearance - ENT Exam ENT Exam: Mucous Membranes Moist - Respiratory Exam Respiratory Exam: Clear to PA & Lateral, NORMAL BREATHING PATTERN, UNREMARKABLE. absent: Rales, Rhonchi, Wheezes - Cardiovascular Exam Cardiovascular Exam: REGULAR RHYTHM, +S1, +S2 - GI/Abdominal Exam GI & Abdominal Exam: Normal Bowel Sounds, Soft. absent: Distended, Firm, Tenderness Additional comments: Midline scar-well healed. - Extremities Exam Extremities exam: normal inspection - Neurological Exam Neurological exam: Alert, Oriented x3 - Psychiatric Exam Psychiatric exam: Normal Affect, Normal Mood - Skin Skin Exam: Dry, Intact, Normal Color, Warm Discharge Plan - Discharge Medications Prescriptions: Mupirocin 2% Ointment [Bactroban Ointment] 1 appl TOP BID 14 Days tube - Follow Up Plan Condition: STABLE Disposition: HOME/ ROUTINE Instructions: Mupirocin (On the skin), Peptic Ulcer (DC), MRSA (Methicillin Resistant Staphylococcus Aureus) (DC), Epigastric Pain (GEN), Full Liquid Diet ( DC) Additional Instructions: Patient is stable for discharge to home. Patient should continue home medications. Patient must use new medication as prescribed: Mupirocin- apply topically to the affected area twice a day for 14 days. Please follow up with Dr. Haque in the office in 1-2 weeks for wound check. Please follow up with GI within 1-2 weeks after discharge. Please follow up with PMD within 1-2 weeks after discharge. If symptoms reoccur or worsen, patient should return to the ED. Referrals: Wisam Vela Jr., MD [Medical Doctor] - Roman Haque MD [Staff Provider] -
[2017-12-23 17:14] VITALS: BP 169/72; PULSE 69; RESP 20; TEMP 97.9; O2SAT 98
--- NOTE | 2017-12-25 22:49 | CARD ---
APPROVED REPORT EKG Measurement Heart [id number] <Conclusion> Normal sinus rhythm Normal ECG
== END 2017-12-23 17:35 | disposition home or self-care (01) | DRG 392 ==
LOC: C.ER 17:22 → C.9E 12-21 00:41 → C.6T 12-21 02:05
PROVIDERS: ADMIT Internal Medicine; ATTEND Internal Medicine
DX: R11.2 Nausea with vomiting, unspecified (principal); K31.1 Adult hypertrophic pyloric stenosis; I10 Essential (primary) hypertension; M10.9 Gout, unspecified; Z87.11 Personal history of peptic ulcer disease; K59.00 Constipation, unspecified